=== PATIENT | female | born 1955 | race Caucasian/White ===

== ENCOUNTER 2016-04-27 17:48 | Inpatient (IN) | payer MEDICARE ==
[2016-04-27] MEDS ORDERED: fentaNYL* 50 MCG/ML 2 ML VIAL (100 MCG VIAL) IV SLOW PU ONE ×4 (17:55→20:33)
[2016-04-27] MEDS ORDERED: fentaNYL* 50 MCG/ML 2 ML VIAL (100 MCG VIAL) ONE ×2 (17:57→18:41)
[2016-04-27] MEDS ORDERED: Ondansetron INJ* 2 MG/ML VIAL IV ONE (17:58)
[2016-04-27] MEDS ORDERED: Ondansetron INJ* 2 MG/ML VIAL ONE (17:58)
[2016-04-27] MEDS ORDERED: NS 0.9% 1000 ML* 1,000 ML IV ONE (18:34)
[2016-04-27] MEDS ORDERED: Midazolam* 1 MG/ML 10 ML VIAL (10 MG) ONE (18:42)
[2016-04-27] MEDS ORDERED: Flumazenil* 0.1 MG/ML 5 ML MDV ONE (18:43)
[2016-04-27] MEDS ORDERED: Naloxone* 0.4 MG/ML 1 ML VIAL ONE (18:43)
[2016-04-27] MEDS ORDERED: Midazolam* 1 MG/ML 2 ML VIAL (2 MG) IV SLOW PU ONE ×2 (18:45→18:48)
--- NOTE | 2016-04-27 19:23 | RAD ---
Indication: LEFT ankle and foot pain and deformity post fall. Comparison: June 28, 2009 radiographs. Technique: AP and crosstable lateral views LEFT ankle. Lateral and crosstable AP views LEFT foot. AP and lateral views LEFT lower leg. Report: Talocrural joint fracture dislocation with the talus displaced posteriorly relative to the tibial plafond. Fracture at the distal fibula with gross lateral displacement of the lateral malleolus fragment. Additional component of the distal fibular fracture extends up to 3.5 cm cephalad to the superior margin of the ankle mortise. Horizontal avulsion fracture of the medial malleolus with up to 1.5 cm lateral displacement maintaining gross alignment with the dome of the talus as for the dominant lateral malleolus fragment. No definitive fracture of the posterior malleolus of the tibial plafond and evident. Severe soft tissue swelling about the ankle. No additional fracture at the foot or lower leg. Normal alignment at the proximal tibia fibula articulation and at the intrinsic joints of the hind, mid, and forefoot. IMPRESSION: Talocrural joint fracture dislocation as described. Post reduction LEFT ankle exam: Indication: Post reduction talocrural joint fracture dislocation. Comparison: Prereduction exam of the same date described above. Technique: Additional AP and crosstable lateral views of the LEFT ankle obtained postreduction REPORT AND IMPRESSION: Grossly restored alignment at the talocrural joint. In addition to the described fractures of the medial and lateral malleolus a fracture involving the posterior malleolus of the tibial plafond is identified with up to 0.8 cm cephalad displacement with resulting articular surface incongruity.
[2016-04-27 20:24] LABS: Hematocrit 43 % (35-47); Hemoglobin 14.2 g/dl (12.0-16.0); Mean Corpuscular HGB Conc 33 g/dl (31-36); Mean Corpuscular Hemoglobin 29 pg (27-31); Mean Corpuscular Volume 88 fL (80-97); Mean Platelet Volume 9 um3 (7.4-10.4); Red Blood Count 4.86 10^6/ul (4.0-5.4); Red Cell Distribution Width 14 % (10.5-15); White Blood Count 7.5 10^3/ul (3.5-10.8)
--- NOTE | 2016-04-27 20:29 | HP ---
H&P (Free Text) History and Physical: PCP: Alirio Borrero MD Date/Time of Evaluation: 04/27/20162029 CC: L ankle pain s/p fall HPI: Mrs Truong is a 60YO female HX pre-DM2, HTN not on meds, & CECILIA intolerant of CPAP who presents after mechanical fall at home resulting in immediate L ankle pain prompting her to present for evaluation. She denies prodromal symptoms, specifically no chest pain, palpitations, N/V, loss of bowel/bladder, SOB, or other issues. Additionally, she denies head injury or LOC. XRY reveals a L ankle FX which was reduced and splinted in ED. She lives on the second floor with no elevator. Her son lives below her, but works and is not home consistently to assist her. As such, she has no safe discharge resulting in this admission with plan for OR in AM. PMedHx pre-DM2 HTN, currently not on meds CECILIA, intolerant of CPAP depression/anxiety Allergies No Known Allergies Allergy (Verified 03/29/16 11:37) Ambulatory Orders ARIPiprazole TAB* [Abilify TAB*] 10 mg PO DAILY 03/29/16 Albuterol HFA INHALER* [Ventolin HFA Inhaler*] 1 puff INH Q6H PRN 03/29/16 Amphetamine MIXED SALT TAB* [Adderall TAB*] 20 mg PO TID PRN 03/29/16 Aspirin Low Dose CHEW TAB* [Aspirin Low Dose TAB*] 81 mg PO DAILY 03/29/16 Desloratidine (NF) [Clarinex (NF)] 5 mg PO DAILY PRN 03/29/16 FLUoxetine CAP* [PROzac CAP*] 10 mg PO DAILY 03/29/16 buPROPion TAB* [Wellbutrin TAB*] 100 mg PO DAILY 03/29/16 ALPRAZolam TAB* [Xanax TAB*] 0.25 mg PO Q6H PRN 04/27/16 PSurgHx tonsillectomy appendectomy R oophorectomy for cyst (benign) SocHx: no tobacco, alcohol, or recreational drugs; , her son lives with her but is a student & works making him unavailable reliable for assistance at home; full code status FamHx: positive for DM2, HTN ROS: as above, otherwise reviewed and all were negative Constitutional: NAD, normally developed, obese white female vitals: Vital Signs Temp 36.5 C 04/27/16 17:55 Pulse 80 04/27/16 17:55 Resp 16 04/27/16 20:47 BP 115/63 04/27/16 17:55 Pulse Ox 96 04/27/16 17:55 Intake & Output 04/26/16 04/27/16 04/27/16 23:59 11:59 23:59 Weight 75.75 kg HEENM: atraumatic; sclera/conjunctiva: non-icteric/clear; hearing: clinically intact; oropharynx: clear, mucosa moist Neck: soft tissue: non-tender; thyroid: normal Pulmonary: clear to auscultation bilaterally, good aeration, no accessory muscle use CV: RR/RR, normal S1S2, no carotid bruit, no jugular venous distention, 2+ B DP/ PT, no edema Abdominal: soft, non-distended, non-tender, no rebound/guarding/rigidity, normoactive bowel sounds, no hepatosplenomegaly or masses, no costovertebral angle tenderness Musculoskeletal: general: grossly intact, L ankle splinted; gait: non- ambulatory 2nd L ankle FX Integumental: normal appearance and texture Psychiatric orientation: AA&O to PPS affect: calm mood: cooperative/pleasant eye contact: good content: reliable responses: timely insight: good Testing: Lab Results 04/27/16 04/27/16 Range/Units 20:10 20:10 WBC 7.5 (3.5-10.8) 10^3/ul RBC 4.86 (4.0-5.4) 10^6/ul Hgb 14.2 (12.0-16.0) g/dl Hct 43 (35-47) % MCV 88 (80-97) fL MCH 29 (27-31) pg MCHC 33 (31-36) g/dl RDW 14 (10.5-15) % Plt Count 197 (150-450) 10^3/ul MPV 9 (7.4-10.4) um3 Neut % (Auto) 82.3 (38-83) % Lymph % (Auto) 11.7 L (25-47) % [place] % (Auto) 5.1 (1-9) % Eos % (Auto) 0.4 (0-6) % Baso % (Auto) 0.5 (0-2) % Absolute Neuts (auto) 6.2 (1.5-7.7) 10^3/ul Absolute Lymphs (auto) 0.9 L (1.0-4.8) 10^3/ul Absolute Monos (auto) 0.4 (0-0.8) 10^3/ul Absolute Eos (auto) 0 (0-0.6) 10^3/ul Absolute Basos (auto) 0 (0-0.2) 10^3/ul Absolute Nucleated RBC 0 10^3/ul Nucleated RBC % 0 Sodium 136 (133-145) mmol/L Potassium 4.3 (3.5-5.0) mmol/L Chloride 103 (101-111) mmol/L Carbon Dioxide 27 (22-32) mmol/L Anion Gap 6 (2-11) mmol/L BUN 15 (6-24) mg/dL Creatinine 1.23 H (0.51-0.95) mg/dL Est GFR ( Amer) 56.9 (>60) Est GFR (Non-Af Amer) 44.2 (>60) BUN/Creatinine Ratio 12.2 (8-20) Glucose 133 H (70-100) mg/dL Calcium 9.0 (8.6-10.3) mg/dL Total Bilirubin 0.40 (0.2-1.0) mg/dL AST 17 (13-39) U/L ALT 17 (7-52) U/L Alkaline Phosphatase 82 (34-104) U/L C-Reactive Protein 18.50 H (< 5.00) mg/L Total Protein 7.6 (6.4-8.9) g/dL Albumin 4.2 (3.2-5.2) g/dL Globulin 3.4 (2-4) g/dL Albumin/Globulin Ratio 1.2 (1-3) XRY L ankle, personally reviewed: IMPRESSION: Talocrural joint fracture dislocation as described. REPORT AND IMPRESSION: Grossly restored alignment at the talocrural joint. In addition to the described fractures of the medial and lateral malleolus a fracture involving the posterior malleolus of the tibial plafond is identified with up to 0.8 cm cephalad displacement with resulting articular surface incongruity. Impression: 60F presenting with L ankle FX s/p mechanical fall who lives on the 2nd floor, no elevator, & inadequate help DIAGNOSIS & PLAN Primary L ankle FX, no safe discharge : Dr Harsha MD ED consulted w/ M [facility] who agreed to evaluate patient in AM w/ plan for surgery : NPO after midnight for OR in AM : pedroza to gravity : pain control : initial reduction & splinting done in ED : outreach and education social worker consult to arrange assistance at home : no contraindications to surgery or anesthesia identified : check ECG & CXR : supportive care Secondary pre-DM2 : check A1c : ACHS glucometry x24H to evaluate need for further monitoring HTN : not currently on meds : low sodium diet : IV hydralazine PRN Admission Rational: inpatient for surgical management of L ankle FX in a patient who has no safe discharge plan at this time due to home issues DVTp: heparin SQ x1 tonight, will need to be re-ordered post-op when approved by ortho Code Status: full
[2016-04-27 20:38] LABS: Albumin 4.2 g/dL (3.2-5.2); BUN/Creatinine Ratio 12.2 (8-20); C Reactive Protein 18.5 mg/L (< 5.00); EGFR African American 56.9 (>60); EGFR Non-African American 44.2 (>60); Globulin 3.4 g/dL (2-4); Potassium 4.3 mmol/L (3.5-5.0); Total Bilirubin 0.4 mg/dL (0.2-1.0); Total Protein 7.6 g/dL (6.4-8.9)
--- NOTE | 2016-04-27 20:55 | ED ---
Jose Guadalupe Zamudio Adam, scribed for Jimmy Mcleod MD on 04/27/16 at 1846 . Lower Extremity - HPI Summary HPI Summary: Pt is a 60 year old female presenting with a left ankle injury. She states that she tripped and fell, catching her foot in a rocking chair, and she heard a crack in her left foot as she went down. The left foot and ankle are very painful and appear deformed, with the foot rotated outward. Pt has a PMHx of asthma, depression, and borderline DM. She denies Hx of COPD and cardiac Hx. She is a former smoker and drinks EtOH weekly. FMHx of DM. - History of Current Complaint Chief Complaint: EDExtremityLower Stated Complaint: LT ANKLE PAIN Hx Obtained From: Patient Mechanism Of Injury: Fall From A Standing Position Onset of Pain: Immediate Onset/Duration: Hours Severity Initially: Moderate Severity Currently: Moderate Pain Intensity: 7 Pain Scale Used: 0-10 Numeric Timing: Constant Location: Is Discrete @ - Left ankle/foot Associated Signs And Symptoms: Positive: Other - Deformity Aggravating Factor(s): Movement Alleviating Factor(s): Nothing Able to Bear Weight: No - Allergies/Home Medications Allergies/Adverse Reactions: Allergies Allergy/AdvReac Type Severity Reaction Status Date / Time No Known Allergies Allergy Verified 03/29/16 11:37 PMH/Surg Hx/FS Hx/Imm Hx Endocrine/Hematology History: Reports: Hx Diabetes - Borderline Respiratory History: Reports: Hx Asthma Psychiatric History: Reports: Hx Depression - Cancer History Hx Chemotherapy: No Hx Radiation Therapy: No Infectious Disease History: Yes Infectious Disease History: Denies: Traveled Outside the [place] in Last 30 Days - Family History Known Family History: Positive: Diabetes - Social History Occupation: Disabled Lives: With Family - Domestic partner female Alcohol Use: Weekly Hx Substance Use: No Substance Use Type: Reports: None Hx Tobacco Use: Yes Smoking Status (MU): Former Smoker Review of Systems Negative: Fever Positive: Arthralgia - Left ankle, Myalgia - Left foot All Other Systems Reviewed And Are Negative: Yes Physical Exam Triage Information Reviewed: Yes Vital Signs On Initial Exam: Initial Vitals Temp Pulse Resp BP Pulse Ox 97.7 F 80 16 115/63 96 04/27/16 17:55 04/27/16 17:55 04/27/16 17:55 04/27/16 17:55 04/27/16 17:55 Vital Signs Reviewed: Yes - [place] Coma Scale Coma Scale Total: 15 Procedures - Joint Reduction Joint Reduction Site: ankle (L) Conscious Sedation: Yes - See note Pre-Procedure NV Exam: Yes - Neurovascular Post Joint Reduction Film: joint reduced Diagnostics - Vital Signs Vital Signs Temp Pulse Resp BP Pulse Ox 04/27/16 18:10 16 04/27/16 17:55 97.7 F 80 16 115/63 96 - Laboratory Lab Results: Lab Results 04/27/16 04/27/16 Range/Units 20:10 20:10 WBC 7.5 (3.5-10.8) 10^3/ul RBC 4.86 (4.0-5.4) 10^6/ul Hgb 14.2 (12.0-16.0) g/dl Hct 43 (35-47) % MCV 88 (80-97) fL MCH 29 (27-31) pg MCHC 33 (31-36) g/dl RDW 14 (10.5-15) % Plt Count 197 (150-450) 10^3/ul MPV 9 (7.4-10.4) um3 Neut % (Auto) 82.3 (38-83) % Lymph % (Auto) 11.7 L (25-47) % [place] % (Auto) 5.1 (1-9) % Eos % (Auto) 0.4 (0-6) % Baso % (Auto) 0.5 (0-2) % Absolute Neuts (auto) 6.2 (1.5-7.7) 10^3/ul Absolute Lymphs (auto) 0.9 L (1.0-4.8) 10^3/ul Absolute Monos (auto) 0.4 (0-0.8) 10^3/ul Absolute Eos (auto) 0 (0-0.6) 10^3/ul Absolute Basos (auto) 0 (0-0.2) 10^3/ul Absolute Nucleated RBC 0 10^3/ul Nucleated RBC % 0 Sodium 136 (133-145) mmol/L Potassium 4.3 (3.5-5.0) mmol/L Chloride 103 (101-111) mmol/L Carbon Dioxide 27 (22-32) mmol/L Anion Gap 6 (2-11) mmol/L BUN 15 (6-24) mg/dL Creatinine 1.23 H (0.51-0.95) mg/dL Est GFR ( Amer) 56.9 (>60) Est GFR (Non-Af Amer) 44.2 (>60) BUN/Creatinine Ratio 12.2 (8-20) Glucose 133 H (70-100) mg/dL Calcium 9.0 (8.6-10.3) mg/dL Total Bilirubin 0.40 (0.2-1.0) mg/dL AST 17 (13-39) U/L ALT 17 (7-52) U/L Alkaline Phosphatase 82 (34-104) U/L C-Reactive Protein 18.50 H (< 5.00) mg/L Total Protein 7.6 (6.4-8.9) g/dL Albumin 4.2 (3.2-5.2) g/dL Globulin 3.4 (2-4) g/dL Albumin/Globulin Ratio 1.2 (1-3) Result Diagrams: 04/27/16 20:10 04/27/16 20:10 Lab Statement: Any lab studies that have been ordered have been reviewed, and results considered in the medical decision making process. - Radiology ANKLE Radiology Interpretation Completed By: Radiologist - REPORT AND IMPRESSION: Grossly restored alignment at the talocrural joint. In addition to the described fractures of the medial and lateral malleolus a fracture involving the posterior malleolus of the tibial plafond is identified with up to 0.8 cm cephalad displacement with resulting articular surface incongruity. ANKLE Radiology Interpretation Completed By: Radiologist - REPORT AND IMPRESSION: Grossly restored alignment at the talocrural joint. In addition to the described fractures of the medial and lateral malleolus a fracture involving the posterior malleolus of the tibial plafond is identified with up to 0.8 cm cephalad displacement with resulting articular surface incongruity. LOWER EXTREMITY Radiology Interpretation Completed By: Radiologist - REPORT AND IMPRESSION: Grossly restored alignment at the talocrural joint. In addition to the described fractures of the medial and lateral malleolus a fracture involving the posterior malleolus of the tibial plafond is identified with up to 0.8 cm cephalad displacement with resulting articular surface incongruity. FOOT Radiology Interpretation Completed By: Radiologist - REPORT AND IMPRESSION: Grossly restored alignment at the talocrural joint. In addition to the described fractures of the medial and lateral malleolus a fracture involving the posterior malleolus of the tibial plafond is identified with up to 0.8 cm cephalad displacement with resulting articular surface incongruity. Lower Extremity Course/Dx - Course Course Of Treatment: Pt is a 60 year old female presenting with a left ankle injury. She states that she tripped and fell, catching her foot in a rocking chair, and she heard a crack in her left foot as she went down. The left foot and ankle are very painful and appear deformed, with the foot rotated outward. Pt has a PMHx of asthma, depression, and borderline DM. She denies Hx of COPD and cardiac Hx. She is a former smoker and drinks EtOH weekly. FMHx of DM. Assessment/Plan: BW is WNL. XR of the left ankle, foot, and lower extremity shows a talocrural, distal fibula, medial and lateral malleolus fracture with dislocation. The pt continues to be neurovascularly intact. I explained to the pt about conscious sedation. She verbalized understanding about the risks and benefits of conscious sedation. She signed the consent form. The pt was given fentanyl and Versed, obtaining good sedation. The fracture was reduced and she was placed in a posterior splint. I discussed the findings and results with Dr. Salcido from orthopedics who recommended for the pt to be discharged home or to be admitted if the pt is unable to care for herself. The pt reports that she lives on the 2nd floor, she lives alone, and she thinks that she is unable to care for herself at this point. Therefore I discussed the findings and results with Dr. Mariee who will admit the pt to his services. PROCEDURE NOTE: Procedural Sedation. Indications: Talocrural, distal fibula, medial and posterior malleolus frx and dislocation. [place] Protocol: a timeout was performed and the correct patient and site were verified. Consent: The risks and benefits of monitored anesthesia care, including the risk of aspiration, deep sedation requiring airway management including possible intubation, nausea and vomiting and the risks of not performing the procedure, including severe pain and inability to complete the procedure, were all discussed with the patient. The alternatives of performing the procedure, including local anesthesia and IV analgesia, also discussed. The patient has a ride home available. ASA Class: II-mild systemic disease. Pre-anesthesia evaluation, including history, exam, and informed consent is documented in the ED note above. Monitoring: Continuous monitoring of heart rate, respiratory rate, pulse oximetry and ETCO2. Supplemental oxygen prior to and during procedure via nasal cannula. Resuscitation equipment available at the bedside during sedation. The patient received Fentanyl and Versed dosages were recorded on the sedation form. The patient was recovered from the sedation without complication or incident. Patient returned to pre-sedation level of awareness. The monitoring was discontinued at this time. Post-anesthesia evaluation: Alert and oriented x 3. Respiratory function, cardiovascular function, temperature, and mental status did return to pre-anesthetic state. Pain is controlled. - Diagnoses Provider Diagnoses: Talocrural fracture, Distal fibula fracture, Malleolus fracture with dislocation Discharge - Discharge Plan Condition: Stable Disposition: ADMITTED TO [facility] Referrals: Glendy Borrero MD [Primary Care Provider] - The documentation as recorded by the Jose Guadalupe abarca Adam accurately reflects the service I personally performed and the decisions made by Harsha grewal Walter, MD.
[2016-04-27] MEDS ORDERED: hydrALAZINE IV* 20 MG/ML VIAL IV PRN (21:01)
[2016-04-27] MEDS ORDERED: CMCS: Melatonin (NF) 3 MG TAB PO PRN (21:02)
[2016-04-27] MEDS ORDERED: Ondansetron INJ* 2 MG/ML VIAL IV PRN (21:02)
[2016-04-27] MEDS ORDERED: NS 0.9% 1000 ML* 1,000 ML IV SCH (21:15)
[2016-04-27] MEDS ORDERED: ALPRAZolam TAB* 0.25 MG PO PRN (21:18)
[2016-04-27] MEDS ORDERED: Albuterol HFA INHALER* 8 gm MDI INH PRN (21:18)
[2016-04-27] MEDS ORDERED: Amphetamine MIXED SALT TAB* 10 MG TAB PO PRN (21:18)
[2016-04-27] MEDS: fentaNYL* 50 MCG/ML 2 ML VIAL (100 MCG VIAL) IV SLOW PU PRN (21:40)
--- NOTE | 2016-04-27 22:11 | RAD ---
Indication: Possible ankle fracture. Preoperative assessment. Comparison: March 02, 2011 CT. Technique: Upright AP 2145 hours Report: Low lung volumes with minimal bilateral subsegmental atelectasis. Clear pleural spaces. Negative for pneumothorax. The heart, pulmonary vasculature, and mediastinal contours are unremarkable. IMPRESSION: Low lung volumes with minimal subsegmental atelectasis.
[2016-04-27] MEDS ORDERED: Heparin VIAL(*) 5000 UNITS/ML VIAL (FIVE THOUSAND) SUBCUT ONE (23:00)
[2016-04-27] MEDS: Docusate CAP* 100 MG PO SCH (23:47)
[2016-04-28] MEDS: fentaNYL* 50 MCG/ML 2 ML VIAL (100 MCG VIAL) IV SLOW PU PRN ×8 (00:09→14:20)
[2016-04-28] MEDS: Omeprazole CAP* 20 MG PO SCH (05:49)
[2016-04-28 07:35] LABS: BUN/Creatinine Ratio 16.5 (8-20); Calcium 8.1 mg/dL (8.6-10.3); EGFR African American 80.6 (>60); EGFR Non-African American 62.6 (>60); Potassium 3.6 mmol/L (3.5-5.0)
[2016-04-28] MEDS: Docusate CAP* 100 MG PO SCH ×2 (08:46→22:03)
[2016-04-28] MEDS: FLUoxetine CAP* 10 MG PO SCH (08:54)
[2016-04-28] MEDS: ARIPiprazole TAB* 5 MG PO SCH (08:54)
[2016-04-28] MEDS: buPROPion TAB* 100 MG PO SCH (08:54)
--- NOTE | 2016-04-28 12:05 | CONS ---
CONSULTATION REPORT: DATE OF CONSULT: 04/28/16. TIME: 7:30 a.m. HISTORY OF PRESENT ILLNESS: Ms. Truong is an active 60-year-old woman who fell on some furniture at her home yesterday. She had a fracture dislocation of her left ankle, which was a closed injury. She presented to the emergency room unable to bear weight with an obviously deformed ankle. She was reduced under some IV sedation in the emergency room by the physician. Postoperative splinting x-ray showed satisfactory reduction of the talocrural joint. She is prediabetic and a hypertensive. Her medications are listed in the chart , but include Abilify, Ventolin, Adderall, Prozac, Wellbutrin, and Xanax. She did not have loss of consciousness during her fall. It seems like a mechanical fall rather than some type of central nervous issue. Her previous surgical history is positive for tonsillectomy and appendectomy. She is not a smoker. She lives by herself at home. Her son is nearby and she does have friends in the area, but she lives upstairs in a duplex with many stairs. PHYSICAL EXAMINATION: On examination, Ms. Truong is a slightly heavyset, healthy- appearing woman with an appropriate mood and affect. She does not appear to be any acute distress, lying in the bed. She has her left extremity splinted with a plaster splint, well wrapped with an [place] wrap. Her toes are warm, sensate and she is able to move her toes up and down nicely. The initial radiographs show a displaced trimalleolar ankle fracture and post- reduction views show satisfactory reduction of the joint itself. ASSESSMENT AND PLAN: The patient with unstable fracture dislocation of the left ankle, Will require internal fixation. Postoperatively, she will have difficulty going back home because of the stairs and living situation with lack of support. She may be a candidate for rehab placement. [id number]/[facility] #: [id number] GABBI
[2016-04-28] MEDS ORDERED: Dextrose 50% Syringe 50 ML* 25 GM/50 ML SYRINGE IV PUSH PRN (12:13)
--- NOTE | 2016-04-28 12:13 | PN ---
Subjective Date of Service: 04/28/16 Interval History: Patient seen this morning. Has LE pain but otherwise no complaints. Understands plans for OR. Family History: Unchanged from Admission Social History: Unchanged from Admission Past Medical History: Unchanged from Admission Objective Active Medications: Acetaminophen (Tylenol Tab*) 650 mg PO Q6H PRN Albuterol (Ventolin Hfa Inhaler*) 1 puff INH Q6H PRN Alprazolam (Xanax Tab*) 0.25 mg PO Q6H PRN Amphetamine/Dextroamphetamine (Adderall Tab*) 20 mg PO TID PRN Aripiprazole (Abilify Tab*) 10 mg PO DAILY [facility] Bupropion HCl (Wellbutrin Tab*) 100 mg PO DAILY [facility] Docusate Sodium (Colace Cap*) 200 mg PO BID [facility] Fentanyl Citrate (Fentanyl*) 50 mcg IV SLOW PU Q2H PRN Fluoxetine HCl (Prozac Cap*) 10 mg PO DAILY [facility] Hydralazine HCl (Apresoline Iv*) 10 mg IV Q4H PRN Sodium Chloride (Ns 0.9% 1000 Ml*) 1,000 mls @ 125 mls/hr IV PER RATE [facility] Melatonin (Melatonin (Nf)) 3 mg PO BEDTIME PRN; Protocol Omeprazole (Prilosec Cap*) 20 mg PO DAILY@0600 [facility] Ondansetron HCl (Zofran Inj*) 4 mg IV Q6H PRN Vital Signs 04/27/16 04/27/16 04/27/16 20:30 20:45 20:47 Temperature Pulse Rate 74 75 Respiratory 14 13 16 Rate Blood Pressure 111/65 115/70 (mmHg) O2 Sat by Pulse 99 98 Oximetry 04/28/16 04/28/16 04/28/16 07:32 07:44 08:00 Temperature 97.9 F Pulse Rate 71 Respiratory 18 16 18 Rate Blood Pressure 108/55 (mmHg) O2 Sat by Pulse 95 Oximetry Oxygen Devices in Use Now: None Appearance: Middle-aged, F, laying in bed in NAD Eyes: No Scleral Icterus Ears/Nose/Mouth/Throat: - - Dry MM Respiratory: Symmetrical Chest Expansion and Respiratory Effort, Clear to Auscultation Cardiovascular: NL Sounds; No Murmurs; No JVD, RRR Abdominal: NL Sounds; No Tenderness; No Distention Lymphatic: No Cervical Adenopathy Extremities: - - LLE in JILL/splint Skin: No Rash or Ulcers Neurological: Alert and Oriented x 3 Result Diagrams: 04/27/16 20:10 04/28/16 06:16 Additional Lab and Data: Assess/Plan/Problems-Billing Assessment: L ankle fracture in a 60 yo F with hx of HTN, CECILIA, pre-DM, depression - Patient Problems (1) Ankle fracture, left Current Visit: Yes Comment: Appreciate Ortho assistance, to OR today for internal fixation. Continue analgesia. May need rehab post-op. (2) HTN (hypertension) Current Visit: Yes Comment: BPs stable, not on home medications (3) Diabetes Current Visit: Yes Comment: Not on home medications. Fasting BGs have been elevated. Will start HISS. HbA1c pending. (4) Depression Current Visit: Yes Comment: anxiety. Continue home regimen. (5) DVT prophylaxis Current Visit: Yes Comment: Lovenox (to start tonight)
[2016-04-28] MEDS ORDERED: Famotidine IV* 10 MG/ML 2 ML (20 mg) IV ONE (13:31)
[2016-04-28] MEDS ORDERED: Buffered Lidocaine 1% SYRIN* 3 ML/SYR SYRINGE INTRADERM ONE (13:31)
[2016-04-28] MEDS ORDERED: Famotidine IV* 10 MG/ML 2 ML (20 mg) ONE (13:32)
[2016-04-28] MEDS ORDERED: fentaNYL* 50 MCG/ML 2 ML VIAL (100 MCG VIAL) ONE ×3 (13:53→16:12)
[2016-04-28] MEDS ORDERED: Midazolam* 1 MG/ML 5 ML VIAL (5 MG) ONE (14:26)
[2016-04-28] MEDS ORDERED: Dexamethasone IV* 4 MG/ML 1 ML (4 MG) ONE (14:26)
[2016-04-28] MEDS ORDERED: KETAMINE HCL* 50 MG/ML 10 ML VIAL ONE (14:26)
[2016-04-28] MEDS ORDERED: Lidocaine 2% PF* 5 ML VIAL ONE (14:26)
[2016-04-28] MEDS ORDERED: Propofol* 10 MG/ML 20 ML BTL IV PUSH ONE (14:26)
[2016-04-28] MEDS ORDERED: Ketorolac INJ* 30 MG/ML 1 ML VIAL ONE (14:26)
[2016-04-28] MEDS ORDERED: Bupivacaine 0.5% W/EPI SDV* 30 ML VIAL ONE (14:48)
[2016-04-28] MEDS ORDERED: ceFAZolin 2 GM PREMIX(*) 2 GM/50 ML BAG IVPB ONE (15:31)
[2016-04-28] MEDS ORDERED: EPHEDrine (Pressors)* 50 MG/ML VIAL ONE (16:01)
[2016-04-28] MEDS ORDERED: Cisatracurium* 2 MG/ML MDV 10 ML ONE (16:35)
[2016-04-28] MEDS ORDERED: Labetalol IV* 5 MG/ML 20 ML VIAL ONE (18:07)
[2016-04-28] MEDS ORDERED: HYDROmorphone* 1 MG/ML 1 ML SYR ONE (18:37)
[2016-04-28] MEDS ORDERED: Enoxaparin(*) 40 MG/0.4 ML SYR SUBCUT SCH (19:00)
[2016-04-28] MEDS ORDERED: fentaNYL* 50 MCG/ML 2 ML VIAL (100 MCG VIAL) IV PRN (19:31)
[2016-04-28] MEDS ORDERED: HYDROmorphone* 1 MG/ML 1 ML SYR IV PRN (19:31)
[2016-04-28] MEDS ORDERED: Ondansetron INJ* 2 MG/ML VIAL IV PRN (19:31)
--- NOTE | 2016-04-28 21:29 | RAD ---
INDICATION: ORIF LEFT ankle. Trimalleolar fracture presenting with fracture dislocation. COMPARISON: April 27, 2016 radiographs. TECHNIQUE: 1 minute 3.6 seconds fluoroscopy. FINDINGS: Spot images document placement of a lateral cortical plate and multiple screws bridging the fibular fracture, a syndesmotic screw, and fixation wires at the medial malleolus as well as an additional medial to lateral directed screw at the distal metaphysis of the tibia. Resulting anatomic alignment at the ankle mortise. IMPRESSION: Procedural fluoroscopy. CPT II Codes: 6045F
[2016-04-28] MEDS: Insulin LISPRO* 1 UNITS UNIT SUBCUT SCH (23:45)
[2016-04-28] MEDS: oxyCODONE/Acetamin 5/325 MG* TAB PO PRN (23:51)
[2016-04-28] MEDS: ceFAZolin 1 GM in Dextrose (*) 1 GM/50 ML BAG IVPB SCH (23:59)
[2016-04-29] MEDS: fentaNYL* 50 MCG/ML 2 ML VIAL (100 MCG VIAL) IV SLOW PU PRN (04:24)
[2016-04-29] MEDS: oxyCODONE/Acetamin 5/325 MG* TAB PO PRN ×4 (06:36→20:09)
[2016-04-29] MEDS: Omeprazole CAP* 20 MG PO SCH (06:37)
[2016-04-29 07:15] LABS: Hematocrit 32 % (35-47); Hemoglobin 10.9 g/dl (12.0-16.0); Mean Corpuscular HGB Conc 34 g/dl (31-36); Mean Corpuscular Hemoglobin 30 pg (27-31); Mean Corpuscular Volume 88 fL (80-97); Mean Platelet Volume 10 um3 (7.4-10.4); Red Blood Count 3.63 10^6/ul (4.0-5.4); Red Cell Distribution Width 13 % (10.5-15); White Blood Count 7.5 10^3/ul (3.5-10.8)
[2016-04-29 07:33] LABS: BUN/Creatinine Ratio 12.5 (8-20); Calcium 8.1 mg/dL (8.6-10.3); EGFR African American 83.7 (>60); EGFR Non-African American 65.1 (>60); Potassium 3.9 mmol/L (3.5-5.0)
[2016-04-29] MEDS: ceFAZolin 1 GM in Dextrose (*) 1 GM/50 ML BAG IVPB SCH ×2 (08:25→15:31)
--- NOTE | 2016-04-29 09:10 | PN ---
Progress Note - Progress Note SOAP: Subjective: patient with no complaints, pain controlled with PO meds Objective: Vital Signs Temp Pulse Resp BP Pulse Ox 97.8 F 76 16 92/53 98 04/29/16 07:21 04/29/16 07:21 04/29/16 07:34 04/29/16 07:21 04/29/16 07:34 Laboratory Last Values WBC 7.5 10^3/ul (3.5-10.8) 04/29/16 06:52 RBC 3.63 10^6/ul (4.0-5.4) L 04/29/16 06:52 Hgb 10.9 g/dl (12.0-16.0) L 04/29/16 06:52 Hct 32 % (35-47) L 04/29/16 06:52 MCV 88 fL (80-97) 04/29/16 06:52 MCH 30 pg (27-31) 04/29/16 06:52 MCHC 34 g/dl (31-36) 04/29/16 06:52 RDW 13 % (10.5-15) 04/29/16 06:52 Plt Count 157 10^3/ul (150-450) 04/29/16 06:52 MPV 10 um3 (7.4-10.4) 04/29/16 06:52 Neut % (Auto) 75.8 % (38-83) 04/29/16 06:52 Lymph % (Auto) 14.8 % (25-47) L 04/29/16 06:52 [place] % (Auto) 9.1 % (1-9) H 04/29/16 06:52 Eos % (Auto) 0 % (0-6) 04/29/16 06:52 Baso % (Auto) 0.3 % (0-2) 04/29/16 06:52 Absolute Neuts (auto) 5.7 10^3/ul (1.5-7.7) 04/29/16 06:52 Absolute Lymphs (auto) 1.1 10^3/ul (1.0-4.8) 04/29/16 06:52 Absolute Monos (auto) 0.7 10^3/ul (0-0.8) 04/29/16 06:52 Absolute Eos (auto) 0 10^3/ul (0-0.6) 04/29/16 06:52 Absolute Basos (auto) 0 10^3/ul (0-0.2) 04/29/16 06:52 Absolute Nucleated RBC 0 10^3/ul 04/29/16 06:52 Nucleated RBC % 0 04/29/16 06:52 Sodium 136 mmol/L (133-145) 04/29/16 06:52 Potassium 3.9 mmol/L (3.5-5.0) 04/29/16 06:52 Chloride 106 mmol/L (101-111) 04/29/16 06:52 Carbon Dioxide 26 mmol/L (22-32) 04/29/16 06:52 Anion Gap 4 mmol/L (2-11) 04/29/16 06:52 BUN 11 mg/dL (6-24) 04/29/16 06:52 Creatinine 0.88 mg/dL (0.51-0.95) 03 06:52 Est GFR ( Amer) 83.7 (>60) 04/29/16 06:52 Est GFR (Non-Af Amer) 65.1 (>60) 04/29/16 06:52 BUN/Creatinine Ratio 12.5 (8-20) 04/29/16 06:52 Glucose 139 mg/dL (70-100) H 04/29/16 06:52 POC Glucose (mg/dL) 200 mg/dL (74-106) H 04/29/16 00:25 Hemoglobin A1c 6.3 % (Less than 6.0) H 04/27/16 20:10 Calcium 8.1 mg/dL (8.6-10.3) L 04/29/16 06:52 Total Bilirubin 0.40 mg/dL (0.2-1.0) 04/27/16 20:10 AST 17 U/L (13-39) 04/27/16 20:10 ALT 17 U/L (7-52) 04/27/16 20:10 Alkaline Phosphatase 82 U/L (34-104) 04/27/16 20:10 C-Reactive Protein 18.50 mg/L (< 5.00) H 04/27/16 20:10 Total Protein 7.6 g/dL (6.4-8.9) 04/27/16 20:10 Albumin 4.2 g/dL (3.2-5.2) 04/27/16 20:10 Globulin 3.4 g/dL (2-4) 04/27/16 20:10 Albumin/Globulin Ratio 1.2 (1-3) 04/27/16 20:10 incision: c/d; splint intact and dry PE: moving toes well with intact sensation over toes Assessment: s/p ORIF left ankle Plan: 1) continue PT- NWB LLE 2) Continue Lovenox/ SCD's for DVT prophylaxis 3) Continue Ancef for 24 hours post-op
[2016-04-29] MEDS: buPROPion TAB* 100 MG PO SCH (09:16)
[2016-04-29] MEDS: FLUoxetine CAP* 10 MG PO SCH (09:16)
[2016-04-29] MEDS: Docusate CAP* 100 MG PO SCH ×2 (09:16→20:08)
[2016-04-29] MEDS: ARIPiprazole TAB* 5 MG PO SCH (09:16)
[2016-04-29] MEDS: Insulin LISPRO* 1 UNITS UNIT SUBCUT SCH ×3 (09:41→16:47)
--- NOTE | 2016-04-29 16:45 | PN ---
Subjective Date of Service: 04/29/16 Interval History: Inadequate relief from pain meds. Pt relaying she does not want to take insulin Last BM 3 days prior Using IS correctly Family History: Unchanged from Admission Social History: Unchanged from Admission Past Medical History: Unchanged from Admission Objective Active Medications: Acetaminophen (Tylenol Tab*) 650 mg PO Q6H PRN PRN Reason: FEVER/PAIN Albuterol (Ventolin Hfa Inhaler*) 1 puff INH Q6H PRN PRN Reason: SOB/WHEEZING Alprazolam (Xanax Tab*) 0.25 mg PO Q6H PRN PRN Reason: ANXIETY Amphetamine/Dextroamphetamine (Adderall Tab*) 20 mg PO TID PRN PRN Reason: CONCENTRATION Aripiprazole (Abilify Tab*) 10 mg PO DAILY [facility] Last Admin: 04/29/16 09:16 Dose: 10 mg Bupropion HCl (Wellbutrin Tab*) 100 mg PO DAILY [facility] Last Admin: 04/29/16 09:16 Dose: 100 mg Dextrose (D50w Syringe 50 Ml*) 12.5 gm IV PUSH .FOR FS < 60 - SS PRN PRN Reason: FS < 60 Docusate Sodium (Colace Cap*) 200 mg PO BID [facility] Last Admin: 04/29/16 09:16 Dose: 200 mg Enoxaparin Sodium (Lovenox(*)) 40 mg SUBCUT 2200 [facility] Fluoxetine HCl (Prozac Cap*) 10 mg PO DAILY [facility] Last Admin: 04/29/16 09:16 Dose: 10 mg Hydralazine HCl (Apresoline Iv*) 10 mg IV Q4H PRN PRN Reason: Systolic BP >170 MMHG Lactated Ringer's (Lactated Ringers 1000 Ml Bag*) 1,000 mls @ 125 mls/hr IV PER RATE [facility] Stop: 04/30/16 00:59 Melatonin (Melatonin (Nf)) 3 mg PO BEDTIME PRN; Protocol PRN Reason: Sleep Omeprazole (Prilosec Cap*) 20 mg PO DAILY@0600 [facility] Last Admin: 04/29/16 06:37 Dose: 20 mg Ondansetron HCl (Zofran Inj*) 4 mg IV Q6H PRN PRN Reason: NAUSEA Oxycodone HCl (Roxycodone Tab*) 5 mg PO Q4H PRN PRN Reason: PAIN Oxycodone/Acetaminophen (Percocet 5/325 Tab*) 1 tab PO Q4H PRN PRN Reason: MILD TO MODERATE PAIN Oxycodone/Acetaminophen (Percocet 5/325 Tab*) 2 tab PO Q4H PRN PRN Reason: SEVERE PAIN Last Admin: 04/29/16 15:31 Dose: 2 tab Vital Signs 04/28/16 04/28/16 04/28/16 19:15 19:20 19:25 Temperature 97.7 F Pulse Rate 74 89 87 Respiratory 16 16 16 Rate Blood Pressure 180/86 157/79 141/72 (mmHg) O2 Sat by Pulse 97 97 99 Oximetry 04/28/16 04/28/16 04/28/16 19:30 19:45 20:00 Temperature Pulse Rate 83 83 93 Respiratory 16 14 14 Rate Blood Pressure 139/71 141/76 136/69 (mmHg) O2 Sat by Pulse 99 98 94 Oximetry 04/28/16 04/28/16 04/28/16 20:15 20:30 20:45 Temperature 98.4 F Pulse Rate 87 94 84 Respiratory 14 14 16 Rate Blood Pressure 137/63 141/67 134/57 (mmHg) O2 Sat by Pulse 94 95 96 Oximetry 04/28/16 04/28/16 04/28/16 21:00 21:31 22:17 Temperature 98.0 F Pulse Rate 81 78 Respiratory 16 18 18 Rate Blood Pressure 138/70 126/63 (mmHg) O2 Sat by Pulse 97 97 Oximetry 04/28/16 04/28/16 04/28/16 22:30 22:45 23:44 Temperature 97.4 F 97.6 F Pulse Rate 88 98 Respiratory 18 20 20 Rate Blood Pressure 123/59 130/61 (mmHg) O2 Sat by Pulse 97 97 97 Oximetry 04/28/16 04/29/16 04/29/16 23:51 00:00 01:51 Temperature Pulse Rate Respiratory 18 11 14 Rate Blood Pressure (mmHg) O2 Sat by Pulse 94 Oximetry 04/29/16 04/29/16 04/29/16 01:53 03:55 04:00 Temperature 97.7 F 97.8 F Pulse Rate 92 81 Respiratory 14 14 11 Rate Blood Pressure 115/56 103/54 (mmHg) O2 Sat by Pulse 95 96 96 Oximetry 04/29/16 04/29/16 04/29/16 04:24 05:19 05:22 Temperature Pulse Rate Respiratory 16 11 Rate Blood Pressure (mmHg) O2 Sat by Pulse 96 Oximetry 04/29/16 04/29/16 04/29/16 06:36 06:39 07:21 Temperature 97.8 F Pulse Rate 76 Respiratory 14 16 16 Rate Blood Pressure 92/53 (mmHg) O2 Sat by Pulse 96 98 Oximetry 04/29/16 04/29/16 04/29/16 07:34 08:10 08:36 Temperature Pulse Rate Respiratory 16 16 Rate Blood Pressure 100/50 (mmHg) O2 Sat by Pulse 98 Oximetry 04/29/16 04/29/16 04/29/16 11:17 11:22 13:22 Temperature 97.9 F Pulse Rate 70 Respiratory 17 16 16 Rate Blood Pressure 103/49 (mmHg) O2 Sat by Pulse 94 Oximetry 04/29/16 04/29/16 04/29/16 14:57 15:31 16:00 Temperature 98.8 F Pulse Rate 76 Respiratory 14 16 Rate Blood Pressure 100/46 (mmHg) O2 Sat by Pulse 97 97 Oximetry Oxygen Devices in Use Now: None Appearance: NAD Eyes: No Scleral Icterus, PERRLA Ears/Nose/Mouth/Throat: NL Teeth, Lips, Gums, Clear Oropharnyx, Mucous Membranes Moist Neck: NL Appearance and Movements; NL JVP, Trachea Midline Respiratory: Symmetrical Chest Expansion and Respiratory Effort, Clear to Auscultation Cardiovascular: NL Sounds; No Murmurs; No JVD, RRR Abdominal: NL Sounds; No Tenderness; No Distention Lymphatic: No Cervical Adenopathy Extremities: No Edema, - - LLE splinted, toes nv intact Skin: No Rash or Ulcers Neurological: Alert and Oriented x 3 Result Diagrams: 04/29/16 06:52 04/29/16 06:52 Additional Lab and Data: Assess/Plan/Problems-Billing Assessment: 60 yo F with hx of HTN, CECILIA, pre-DM, depression p/w L ankle fracture s/p ORIF - Patient Problems (1) Ankle fracture, left Comment: Appreciate Ortho assistance, ORIF 04/28/16 Continue analgesia - c/w APAP/oxycodone. Added oxycodone 5mg for breakthrough without additional APAP May need rehab post-op. (2) Constipation Comment: Add miralax to colace (3) Depression Comment: wellbutrin, abilify, xanax (4) Diabetes Comment: Start metformin 500mg BID with plan to d/c on this dose stop ISS c/w FSG x 1 additional day to measure effect (5) HTN (hypertension) Comment: BPs stable, not on home medications (6) DVT prophylaxis Comment: Lovenox
[2016-04-29] MEDS: oxyCODONE TAB* 5 MG TAB PO PRN (17:57)
[2016-04-29] MEDS: metFORMIN* 500 MG TAB PO SCH (17:57)
[2016-04-29] MEDS: Enoxaparin(*) 40 MG/0.4 ML SYR SUBCUT SCH (21:59)
[2016-04-30] MEDS: oxyCODONE/Acetamin 5/325 MG* TAB PO PRN ×4 (00:32→10:31)
[2016-04-30] MEDS: Omeprazole CAP* 20 MG PO SCH (06:32)
[2016-04-30] MEDS: ARIPiprazole TAB* 5 MG PO SCH (08:18)
[2016-04-30] MEDS: buPROPion TAB* 100 MG PO SCH (08:18)
--- NOTE | 2016-04-30 08:18 | PN ---
Progress Note - Progress Note SOAP: Subjective: patient resting comfortably with no complaints Objective: Vital Signs Temp Pulse Resp BP Pulse Ox 97.9 F 75 16 97/53 97 04/30/16 07:35 04/30/16 07:35 04/30/16 07:35 04/30/16 07:35 04/30/16 07:35 Laboratory Last Values WBC 7.5 10^3/ul (3.5-10.8) 04/29/16 06:52 RBC 3.63 10^6/ul (4.0-5.4) L 04/29/16 06:52 Hgb 10.9 g/dl (12.0-16.0) L 04/29/16 06:52 Hct 32 % (35-47) L 04/29/16 06:52 MCV 88 fL (80-97) 04/29/16 06:52 MCH 30 pg (27-31) 04/29/16 06:52 MCHC 34 g/dl (31-36) 04/29/16 06:52 RDW 13 % (10.5-15) 04/29/16 06:52 Plt Count 157 10^3/ul (150-450) 04/29/16 06:52 MPV 10 um3 (7.4-10.4) 04/29/16 06:52 Neut % (Auto) 75.8 % (38-83) 04/29/16 06:52 Lymph % (Auto) 14.8 % (25-47) L 04/29/16 06:52 [place] % (Auto) 9.1 % (1-9) H 04/29/16 06:52 Eos % (Auto) 0 % (0-6) 04/29/16 06:52 Baso % (Auto) 0.3 % (0-2) 04/29/16 06:52 Absolute Neuts (auto) 5.7 10^3/ul (1.5-7.7) 04/29/16 06:52 Absolute Lymphs (auto) 1.1 10^3/ul (1.0-4.8) 04/29/16 06:52 Absolute Monos (auto) 0.7 10^3/ul (0-0.8) 04/29/16 06:52 Absolute Eos (auto) 0 10^3/ul (0-0.6) 04/29/16 06:52 Absolute Basos (auto) 0 10^3/ul (0-0.2) 04/29/16 06:52 Absolute Nucleated RBC 0 10^3/ul 04/29/16 06:52 Nucleated RBC % 0 04/29/16 06:52 Sodium 136 mmol/L (133-145) 04/29/16 06:52 Potassium 3.9 mmol/L (3.5-5.0) 04/29/16 06:52 Chloride 106 mmol/L (101-111) 04/29/16 06:52 Carbon Dioxide 26 mmol/L (22-32) 04/29/16 06:52 Anion Gap 4 mmol/L (2-11) 04/29/16 06:52 BUN 11 mg/dL (6-24) 04/29/16 06:52 Creatinine 0.88 mg/dL (0.51-0.95) 03 06:52 Est GFR ( Amer) 83.7 (>60) 04/29/16 06:52 Est GFR (Non-Af Amer) 65.1 (>60) 04/29/16 06:52 BUN/Creatinine Ratio 12.5 (8-20) 04/29/16 06:52 Glucose 139 mg/dL (70-100) H 04/29/16 06:52 POC Glucose (mg/dL) 90 mg/dL (74-106) 04/29/16 21:13 Hemoglobin A1c 6.3 % (Less than 6.0) H 04/27/16 20:10 Calcium 8.1 mg/dL (8.6-10.3) L 04/29/16 06:52 Total Bilirubin 0.40 mg/dL (0.2-1.0) 04/27/16 20:10 AST 17 U/L (13-39) 04/27/16 20:10 ALT 17 U/L (7-52) 04/27/16 20:10 Alkaline Phosphatase 82 U/L (34-104) 04/27/16 20:10 C-Reactive Protein 18.50 mg/L (< 5.00) H 04/27/16 20:10 Total Protein 7.6 g/dL (6.4-8.9) 04/27/16 20:10 Albumin 4.2 g/dL (3.2-5.2) 04/27/16 20:10 Globulin 3.4 g/dL (2-4) 04/27/16 20:10 Albumin/Globulin Ratio 1.2 (1-3) 04/27/16 20:10 splint intact, able to move toes with intact sensation over toes Assessment: s/p ORIF left ankle Plan: 1) continue Lovenox/SCD's for DVT prophylaxis 2) Continue current pain regimen 3) Hospitalist co-managing 4) PMRU consult for rehab placement 5) Continue PT/OT- NWB LLE
[2016-04-30] MEDS: metFORMIN* 500 MG TAB PO SCH ×2 (08:19→16:09)
[2016-04-30] MEDS: Docusate CAP* 100 MG PO SCH ×2 (08:19→20:48)
[2016-04-30] MEDS: FLUoxetine CAP* 10 MG PO SCH (08:19)
[2016-04-30] MEDS: Polyethylene Glycol 3350* 17 GM PACKET PO PRN (09:01)
[2016-04-30] MEDS ORDERED: Acetaminophen TAB* 325 MG PO PRN (16:07)
[2016-04-30] MEDS: Acetaminophen TAB* 325 MG PO PRN ×2 (16:09→22:05)
[2016-04-30] MEDS: oxyCODONE TAB* 5 MG TAB PO PRN ×2 (16:40→20:47)
--- NOTE | 2016-04-30 17:12 | PN ---
Subjective Date of Service: 04/30/16 Interval History: +BM, feels better pain improved Using IS No complaints Family History: Unchanged from Admission Social History: Unchanged from Admission Past Medical History: Unchanged from Admission Objective Active Medications: Acetaminophen (Tylenol Tab*) 650 mg PO Q6H PRN PRN Reason: FEVER/PAIN Last Admin: 04/30/16 16:09 Dose: 650 mg Albuterol (Ventolin Hfa Inhaler*) 1 puff INH Q6H PRN PRN Reason: SOB/WHEEZING Alprazolam (Xanax Tab*) 0.25 mg PO Q6H PRN PRN Reason: ANXIETY Amphetamine/Dextroamphetamine (Adderall Tab*) 20 mg PO TID PRN PRN Reason: CONCENTRATION Aripiprazole (Abilify Tab*) 10 mg PO DAILY [facility] Last Admin: 04/30/16 08:18 Dose: 10 mg Bupropion HCl (Wellbutrin Tab*) 100 mg PO DAILY [facility] Last Admin: 04/30/16 08:18 Dose: 100 mg Dextrose (D50w Syringe 50 Ml*) 12.5 gm IV PUSH .FOR FS < 60 - SS PRN PRN Reason: FS < 60 Docusate Sodium (Colace Cap*) 200 mg PO BID [facility] Last Admin: 04/30/16 08:19 Dose: 200 mg Enoxaparin Sodium (Lovenox(*)) 40 mg SUBCUT 2200 [facility] Last Admin: 04/29/16 21:59 Dose: 40 mg Fluoxetine HCl (Prozac Cap*) 10 mg PO DAILY [facility] Last Admin: 04/30/16 08:19 Dose: 10 mg Hydralazine HCl (Apresoline Iv*) 10 mg IV Q4H PRN PRN Reason: Systolic BP >170 MMHG Melatonin (Melatonin (Nf)) 3 mg PO BEDTIME PRN; Protocol PRN Reason: Sleep Metformin HCl (Glucophage*) 500 mg PO 0800,1700 [facility] Last Admin: 04/30/16 16:09 Dose: 500 mg Omeprazole (Prilosec Cap*) 20 mg PO DAILY@0600 [facility] Last Admin: 04/30/16 06:32 Dose: 20 mg Ondansetron HCl (Zofran Inj*) 4 mg IV Q6H PRN PRN Reason: NAUSEA Oxycodone HCl (Roxycodone Tab*) 5 mg PO Q4H PRN PRN Reason: PAIN Last Admin: 04/30/16 16:40 Dose: 5 mg Polyethylene Glycol/Electrolytes (Miralax*) 17 gm PO DAILY PRN PRN Reason: CONSTIPATION Last Admin: 04/30/16 09:01 Dose: 17 gm Vital Signs 04/29/16 04/29/16 04/29/16 17:31 17:57 19:18 Temperature 99.0 F Pulse Rate 81 Respiratory 16 16 15 Rate Blood Pressure 101/55 (mmHg) O2 Sat by Pulse 96 Oximetry 04/29/16 04/29/16 04/29/16 19:57 20:09 22:09 Temperature Pulse Rate Respiratory 16 18 16 Rate Blood Pressure (mmHg) O2 Sat by Pulse Oximetry 04/29/16 04/30/16 04/30/16 23:39 00:32 02:32 Temperature 99.3 F Pulse Rate 88 Respiratory 16 16 18 Rate Blood Pressure 114/58 (mmHg) O2 Sat by Pulse 100 Oximetry 04/30/16 04/30/16 04/30/16 03:22 06:36 07:11 Temperature 99.5 F Pulse Rate 93 Respiratory 18 16 16 Rate Blood Pressure 108/54 (mmHg) O2 Sat by Pulse 97 97 Oximetry 04/30/16 04/30/16 04/30/16 07:35 08:36 10:31 Temperature 97.9 F Pulse Rate 75 Respiratory 16 16 16 Rate Blood Pressure 97/53 (mmHg) O2 Sat by Pulse 97 Oximetry 04/30/16 04/30/16 04/30/16 11:12 12:31 15:20 Temperature 98.1 F 98.1 F Pulse Rate 78 78 Respiratory 16 16 14 Rate Blood Pressure 110/51 117/50 (mmHg) O2 Sat by Pulse 97 97 Oximetry 04/30/16 04/30/16 16:02 16:40 Temperature Pulse Rate Respiratory 16 Rate Blood Pressure (mmHg) O2 Sat by Pulse 97 Oximetry Oxygen Devices in Use Now: None Appearance: NAD Eyes: No Scleral Icterus, PERRLA Ears/Nose/Mouth/Throat: NL Teeth, Lips, Gums, Clear Oropharnyx, Mucous Membranes Moist Neck: NL Appearance and Movements; NL JVP, Trachea Midline Respiratory: Symmetrical Chest Expansion and Respiratory Effort, Clear to Auscultation Cardiovascular: NL Sounds; No Murmurs; No JVD, RRR Abdominal: NL Sounds; No Tenderness; No Distention, No Hepatosplenomegaly Lymphatic: No Cervical Adenopathy Extremities: - - left toes NV intact Neurological: Alert and Oriented x 3 Result Diagrams: 04/29/16 06:52 04/29/16 06:52 Additional Lab and Data: Assess/Plan/Problems-Billing Assessment: 60 yo F with hx of HTN, CECILIA, pre-DM2, depression p/w L ankle fracture s/p ORIF 04/28/16 - Patient Problems (1) Ankle fracture, left Comment: Appreciate Ortho assistance ORIF 04/28/16 Continue analgesia - oxycodone 5mg and tylenol 650mg PMRU referral (2) Constipation Comment: miralax and colace (3) Depression Comment: wellbutrin, abilify, xanax (4) Diabetes Comment: Start metformin 500mg BID with plan to d/c on this dose stop ISS (5) HTN (hypertension) Comment: BPs stable, not on home medications (6) DVT prophylaxis Comment: Lovenox
[2016-04-30] MEDS: Enoxaparin(*) 40 MG/0.4 ML SYR SUBCUT SCH (22:05)
--- NOTE | 2016-05-01 04:48 | OP ---
DATE OF OPERATION: 04/28/16 - ROOM #332 DATE OF : 51 SURGEON: Robbie Napier MD DINING ROOM HELPER: FRANCISCO Smith ANESTHESIOLOGIST: Dr. Mesa. ANESTHESIA: General anesthesia, LMA, then endotracheal tube. PRE-OP DIAGNOSIS: Left ankle trimalleolar fracture dislocation. POST-OP DIAGNOSIS: Left ankle trimalleolar fracture dislocation. OPERATIVE PROCEDURE: 1. Open reduction and internal fixation, left ankle trimalleolar fracture without posterior or fixation. 2. Left ankle open reduction and internal fixation syndesmosis. INDICATIONS: The patient is a 60-year-old woman, retired, who lives alone, who presented the day prior to the procedure to the emergency department at [facility]. She fell at home from a standing height on to some furniture. She had obvious deformity of the ankle and could not bear weight. In the emergency department, x- rays demonstrated a gross dislocation of the ankle joint as well as a comminuted fracture of the lateral malleolus, displaced, a displaced tip of medial malleolus fracture, and a kimani or small, less than 20% fracture of the posterior malleolus of the tibia. Emergency department staff successfully relocated the ankle and the patient was placed in a splint with Hamlet bandage. Another Orthopedic Surgery attending did a consult on the patient. The patient was admitted from the emergency department because she required this for pain control as well as for functional safety, given her age, living alone, and inability to use assist devices, and remain nonweightbearing left lower extremity. The patient was therefore admitted to the floor. Orthopedic Surgery consultation was obtained by another physician and I met the patient preoperatively for the procedure that she opted to have performed on our recommendation. ANTIBIOSIS: 2 g Ancef IV. IV FLUIDS: See Anesthesia note. TOURNIQUET TIME: 140 minutes at 300 mmHg. COMPLICATIONS: None. ESTIMATED BLOOD LOSS: Minimal. SPECIMEN: None. IMPLANTS: Synthes one-third tubular plate with nonlocking screws and one locking screw, cortical and cancellous in the lateral malleolus. One syndesmotic screw, 3.5 mm, fully threaded through the Synthes plates. Medially , there were two 1.6-mm K-wires used in a tension band construct with a 3.5-mm fully threaded 30-mm screw and washer, and a Fiber-Wire #5 suture completing the tension band construct. DESCRIPTION OF PROCEDURE: Preoperative written consent. Operative extremity was marked in the preoperative holding. In the preoperative holding, I took down the patient's posterior splint, short leg. I examined the skin carefully. There was no open skin. There was some soft tissue swelling, but there was wrinkling about the medial and lateral ankle. The ankle appeared located by my exam which coincided with post relocation x-rays that I had seen. The patient was taken back to the operating room and placed supine on the operating room table. The patient was sedated and LMA was placed. Bone foam and a left hemipelvis bump were placed. A proximal left thigh tourniquet was placed, but not yet elevated. C-arm was brought in and confirmed to obtain appropriate images. C-arm was brought out and the left lower extremity was prepped and draped. Surgical time-out was performed. Esmarch was applied. Tourniquet was elevated to 300 mmHg. A standard lateral ankle incision was made through the skin from approximately 12 cm proximal to the tip, distal of the lateral malleolus to just distal to the lateral malleolus. Dissection through subcutaneous tissue with a 15 blade. Deeper dissection with scissors. I encountered a branch of the superficial peroneal nerve in the proximal aspect of my incision. I freed it up and retracted it anteriorly. I quickly dissected down to the fracture site. It was comminuted. There was a short oblique component of the fracture as well as an anteromedial long, very thin fracture fragment and then, a posterior extended fragment of the shaft of the fibula. Bone was noted to be very narrow, of the fibula, both medial to lateral and anterior to posterior. Hematoma was irrigated and sucked out. Fracture site was curetted. A mini rongeur was used to remove fibrous tissue. Bone clamps were used to obtain reduction. I requested that Anesthesia maximally sedate and paralyze the patient, so they switched from an LMA to an endotracheal tube and gave me some more relaxation. I appreciated this. Obtained an excellent reduction. Placed a 2.7-mm screw, using lag technique. This afforded me a good reduction of the fracture fragments with utmost a 1-mm stepoff of this very comminuted osteopenic fracture. I then contoured a one-third tubular plate. Most of the contouring included adding an internal rotation contour to it. I also flexed the tip of the plate distally. The plate was then noted to lie well on top of bone. Given how distal the fracture was, it was evident that I would only get 2 screws distal to the fracture site. The plate was long enough to accommodate the syndesmotic screw as needed as well as three more proximal screws and some empty screw holes to accommodate for the lag screw and the area of most comminution of the fracture. In order to suck the plate down to bone, I used initially 2 nonlocking screws on the second most distal hole and then a proximal hole. The 2.7-mm interfrag screw was noted to be loose which was not especially surprising given the amount of comminution. Therefore, after the plate had been placed, this interfrag screw was removed. Excellent reduction was noted of fracture fragments and the plate had been placed with one screw proximal and distal. C-arm imaging confirmed appropriate placement of plate proximal to distal and good reduction of bone. In order to suck down the distal most aspect of the plate and prevent it from being prominent, I used again a nonlocking screw despite some thinness of bone. I filled in the proximal holes with nonlocking screws to suck plate to bone and then a locking screw once the plates had been nicely contoured to bone for some added rigidity of the construct. X-rays were obtained. This showed good reduction of the fibula, although that thin sliver anteromedial of bone was noted to be displaced perhaps 1 mm or less than 1 mm. I suspected that much of the syndesmosis was attached to part of this fragment. Therefore, I assumed a certain amount of syndesmosis instability. I performed an external rotation stress test at this point which showed no significant medial clear space widening, but I decided to refrain on final judgment on the requirement of the syndesmotic screw until I had placed fixation medially. A bump under the left hemipelvis was removed. I turned my attention to the medial aspect of the ankle. A medial ankle approach incision was made, curving distally. Dissection with scissors made through the subcutaneous tissue. The saphenous vein and some saphenous nerve branches were easily appreciated and retracted anteriorly. The fracture site was identified, keyed open, irrigated, and curetted. This fracture fragment was noted to be very small. I was concerned that any screw fixation might explode it, although I did consider briefly one screw and one K- wire. In order to be conservative, I instead decided to do a tension band construct using K-wires. I reduced the fracture fragment. Although there had been some comminution, I was able to confirm along the anterior shoulder of the medial malleolus a perfect reduction of the bone. I held them in place with a dental pick. I placed two 1.6-mm K-wires perpendicular to the fracture plane. I confirmed good placement of these on AP mortise and lateral views. I then went up to the most proximal aspect of my incision. I drilled for a screw post. I drilled pointing slightly distally. I placed a 30-mm screw with washer. I then obtained some FiberWire #5 and created a tension band and tied that tightly. I then placed the screw and washer all the way down to bone. I bent the tips of the K-wires, cut off the extra wire, and impacted them into bone. X-rays showed excellent reduction of medial malleolus fracture. X-rays did show that the post screw was surprisingly a little bit prominent into the syndesmosis. In the past, I have routinely used a 30-mm post and it sounded never to have been too long. This was several threads long. I decided to leave it in place for now. I then performed external rotation stress test and Cotton test. There was some minimal amount of widening of the tibial fibular clear and overlap spaces with Cotton test. Also, given the segmental anteromedial small fracture fragment, assumed to involve some syndesmosis tissue and the fact that this had been a fracture dislocation, I assumed the worst, instability of the syndesmosis and I decided to place a syndesmotic screw. Therefore, with the ankle fully dorsiflexed, I drilled and then placed through the plate approximately 1.5 to 2 cm proximal for the tibial talar joint, a fully threaded 3.5-mm screw across fibula and tibia. I placed that screw tip at or just prior to the medial cortex that I could actually visualize through my medial incision. I was especially careful not to overtighten this in any way, just the lightest finger tip tightening, especially given her age. Final x-rays were obtained, AP, mortise, and lateral. The post screw was noted to be slightly long. I decided that I could take this out at the time I removed the syndesmotic screw if it is troublesome approximately 10 weeks' postoperative. Irrigation of both wounds. Closure on the medial side of the subcutaneous tissue with buried simple stitches using Vicryl 3-0 suture followed by skin closure with a running stitch using nylon 4-0 suture. Closure of the lateral wound with deep stitches, figure -of-4, and deep subcutaneous and fascial tissue using Vicryl 2-0 suture. Closure of the subcutaneous tissue with buried simple stitches using Vicryl 3-0 suture. Closure of the skin with running stitches using nylon 4-0 suture. Xeroform over both incisions, 4x4's, ABD, sterile Webril, nonsterile Webril, a posterior splint was then followed by sugar-tong medial and lateral splint. Hamlet bandage. The patient was then awakened, extubated, and transferred to the PACU. DISPOSITION: The patient will be admitted postoperatively for pain control, medical management, and physical therapy work. The patient is nonweightbearing or toe-touch weightbearing of left lower extremity. The patient will follow up with me in clinic in 12 to 14 days postoperative. The patient will get Keflex antibiosis x1 week. The patient is already on Lovenox anticoagulation, so certainly will not add anything to that and she will get Percocet for pain control postoperatively. My tentative plan will be to start the patient on some partial weightbearing at 6 weeks in a walking boot, advance her to weightbearing as tolerated in that walking boot by 8 weeks, and remove that syndesmotic screw somewhere between 10 and 14 weeks postoperatively. I might remove that medial post screw as well or change screw lengths. [id number]/[facility] #: [id number]
[2016-05-01] MEDS: oxyCODONE TAB* 5 MG TAB PO PRN ×4 (05:51→22:48)
[2016-05-01] MEDS: Omeprazole CAP* 20 MG PO SCH (05:51)
[2016-05-01] MEDS: Acetaminophen TAB* 325 MG PO PRN ×3 (05:51→17:57)
[2016-05-01 06:54] LABS: Hematocrit 30 % (35-47); Hemoglobin 10.3 g/dl (12.0-16.0); Mean Corpuscular HGB Conc 34 g/dl (31-36); Mean Corpuscular Hemoglobin 30 pg (27-31); Mean Corpuscular Volume 88 fL (80-97); Mean Platelet Volume 9 um3 (7.4-10.4); Red Blood Count 3.44 10^6/ul (4.0-5.4); Red Cell Distribution Width 13 % (10.5-15); White Blood Count 5.3 10^3/ul (3.5-10.8)
[2016-05-01 07:09] LABS: BUN/Creatinine Ratio 11.3 (8-20); Calcium 8.4 mg/dL (8.6-10.3); EGFR African American 93.5 (>60); EGFR Non-African American 72.7 (>60); Potassium 3.5 mmol/L (3.5-5.0)
[2016-05-01] MEDS: ARIPiprazole TAB* 5 MG PO SCH (08:25)
[2016-05-01] MEDS: Docusate CAP* 100 MG PO SCH ×2 (08:25→19:58)
[2016-05-01] MEDS: FLUoxetine CAP* 10 MG PO SCH (08:25)
[2016-05-01] MEDS: metFORMIN* 500 MG TAB PO SCH ×2 (08:26→17:19)
[2016-05-01] MEDS: buPROPion TAB* 100 MG PO SCH (08:26)
--- NOTE | 2016-05-01 08:53 | PN ---
Progress Note - Progress Note SOAP: Subjective: []Patient seen OOB in chair. Slept better in chair than in bed. Ankle painful at times but overall is tolerable. Hoping to go to PMRU rehab, awaiting consult. Objective: [] Vital Signs Temp 97.7 F 05/01/16 07:18 Pulse 68 05/01/16 07:18 Resp 16 05/01/16 08:00 BP 116/56 05/01/16 07:18 Pulse Ox 93 05/01/16 07:18 Intake & Output 04/30/16 05/01/16 05/01/16 18:59 06:59 18:59 Intake Total 1040 700 Output Total 2150 1000 Balance -1110 -300 Intake: Oral 1040 700 Output: Urine 2150 1000 Other: Date of Last Bowel 04/30/16 Movement # Bowel Movements 1 Estimated Stool Amount Large Laboratory Results - last 24 hr 05/01/16 05/01/16 06:35 06:35 WBC 5.3 RBC 3.44 L Hgb 10.3 L Hct 30 L MCV 88 MCH 30 MCHC 34 RDW 13 Plt Count 156 MPV 9 Neut % (Auto) 64.6 Lymph % (Auto) 22.1 L Dewey % (Auto) 11.6 H Eos % (Auto) 1.0 Baso % (Auto) 0.7 Absolute Neuts (auto) 3.4 Absolute Lymphs (auto) 1.2 Absolute Monos (auto) 0.6 Absolute Eos (auto) 0.1 Absolute Basos (auto) 0 Absolute Nucleated RBC 0 Nucleated RBC % 0 Sodium 134 Potassium 3.5 Chloride 100 L Carbon Dioxide 28 Anion Gap 6 BUN 9 Creatinine 0.80 Est GFR ( Amer) 93.5 Est GFR (Non-Af Amer) 72.7 BUN/Creatinine Ratio 11.3 Glucose 97 Calcium 8.4 L Left ankle splint is clean, dry and intact Moving toes well, pink and warm no calf tenderness Assessment: []s/p ORIF left trimalleolar ankle fracture POD#3 Plan: []PT NWB left LE Await PMRU consult
[2016-05-01] MEDS: Polyethylene Glycol 3350* 17 GM PACKET PO PRN (11:52)
--- NOTE | 2016-05-01 17:01 | PN ---
Subjective Date of Service: 05/01/16 Interval History: Pain better controlled no BM today. Family History: Unchanged from Admission - Social History: Unchanged from Admission Past Medical History: Unchanged from Admission Objective Active Medications: Acetaminophen (Tylenol Tab*) 650 mg PO Q6H PRN PRN Reason: FEVER/PAIN Last Admin: 05/01/16 11:46 Dose: 650 mg Albuterol (Ventolin Hfa Inhaler*) 1 puff INH Q6H PRN PRN Reason: SOB/WHEEZING Alprazolam (Xanax Tab*) 0.25 mg PO Q6H PRN PRN Reason: ANXIETY Amphetamine/Dextroamphetamine (Adderall Tab*) 20 mg PO TID PRN PRN Reason: CONCENTRATION Aripiprazole (Abilify Tab*) 10 mg PO DAILY [facility] Last Admin: 05/01/16 08:25 Dose: 10 mg Bupropion HCl (Wellbutrin Tab*) 100 mg PO DAILY [facility] Last Admin: 05/01/16 08:26 Dose: 100 mg Dextrose (D50w Syringe 50 Ml*) 12.5 gm IV PUSH .FOR FS < 60 - SS PRN PRN Reason: FS < 60 Docusate Sodium (Colace Cap*) 200 mg PO BID [facility] Last Admin: 05/01/16 08:25 Dose: 200 mg Enoxaparin Sodium (Lovenox(*)) 40 mg SUBCUT 2200 [facility] Last Admin: 04/30/16 22:05 Dose: 40 mg Fluoxetine HCl (Prozac Cap*) 10 mg PO DAILY [facility] Last Admin: 05/01/16 08:25 Dose: 10 mg Hydralazine HCl (Apresoline Iv*) 10 mg IV Q4H PRN PRN Reason: Systolic BP >170 MMHG Melatonin (Melatonin (Nf)) 3 mg PO BEDTIME PRN; Protocol PRN Reason: Sleep Metformin HCl (Glucophage*) 500 mg PO 0800,1700 [facility] Last Admin: 05/01/16 08:26 Dose: 500 mg Omeprazole (Prilosec Cap*) 20 mg PO DAILY@0600 [facility] Last Admin: 05/01/16 05:51 Dose: 20 mg Ondansetron HCl (Zofran Inj*) 4 mg IV Q6H PRN PRN Reason: NAUSEA Oxycodone HCl (Roxycodone Tab*) 5 mg PO Q4H PRN PRN Reason: PAIN - MODERATE Last Admin: 04/30/16 16:40 Dose: 5 mg Oxycodone HCl (Roxycodone Tab*) 10 mg PO Q4H PRN PRN Reason: PAIN - SEVERE Last Admin: 05/01/16 11:46 Dose: 10 mg Polyethylene Glycol/Electrolytes (Miralax*) 17 gm PO DAILY PRN PRN Reason: CONSTIPATION Last Admin: 05/01/16 11:52 Dose: 17 gm Vital Signs 04/30/16 04/30/16 04/30/16 18:40 19:14 19:15 Temperature Pulse Rate Respiratory 16 17 17 Rate Blood Pressure (mmHg) O2 Sat by Pulse Oximetry 04/30/16 04/30/16 04/30/16 19:23 20:47 22:47 Temperature 98.4 F Pulse Rate 76 Respiratory 17 17 16 Rate Blood Pressure 111/49 (mmHg) O2 Sat by Pulse 96 Oximetry 04/30/16 05/01/16 05/01/16 23:23 03:48 05:51 Temperature 99.1 F 98.5 F Pulse Rate 74 74 Respiratory 16 16 16 Rate Blood Pressure 118/56 115/59 (mmHg) O2 Sat by Pulse 99 95 Oximetry 05/01/16 05/01/16 05/01/16 07:18 07:51 08:00 Temperature 97.7 F Pulse Rate 68 Respiratory 16 16 16 Rate Blood Pressure 116/56 (mmHg) O2 Sat by Pulse 93 Oximetry 05/01/16 05/01/16 05/01/16 11:38 11:46 13:46 Temperature 98.1 F Pulse Rate 80 Respiratory 18 16 16 Rate Blood Pressure 113/44 (mmHg) O2 Sat by Pulse 98 Oximetry 05/01/16 05/01/16 15:01 16:51 Temperature 98.3 F Pulse Rate 86 Respiratory 14 Rate Blood Pressure 127/56 (mmHg) O2 Sat by Pulse 95 95 Oximetry Oxygen Devices in Use Now: None Appearance: NAD Eyes: No Scleral Icterus, PERRLA Ears/Nose/Mouth/Throat: NL Teeth, Lips, Gums, Clear Oropharnyx Neck: NL Appearance and Movements; NL JVP, Trachea Midline Respiratory: Symmetrical Chest Expansion and Respiratory Effort, Clear to Auscultation Cardiovascular: NL Sounds; No Murmurs; No JVD, RRR Abdominal: NL Sounds; No Tenderness; No Distention Lymphatic: No Cervical Adenopathy Skin: - - left ankle in cast, toes Nv intact Neurological: Alert and Oriented x 3 Result Diagrams: 05/01/16 06:35 05/01/16 06:35 Additional Lab and Data: Assess/Plan/Problems-Billing Assessment: 60 yo F with hx of HTN, CECILIA, pre-DM2, depression p/w L ankle fracture s/p ORIF 04/28/16 - Patient Problems (1) Ankle fracture, left Comment: Appreciate Ortho assistance ORIF 04/28/16 Continue analgesia - oxycodone 5mg and tylenol 650mg [place] tomorrow (2) Constipation Comment: miralax and colace added senna (3) Depression Comment: wellbutrin, abilify, xanax (4) Diabetes Comment: Start metformin 500mg BID with plan to d/c on this dose stop ISS (5) HTN (hypertension) Comment: BPs stable, not on home medications (6) DVT prophylaxis Comment: Lovenox
[2016-05-01] MEDS ORDERED: Senna TAB PO SCH (21:00)
[2016-05-01] MEDS: Enoxaparin(*) 40 MG/0.4 ML SYR SUBCUT SCH (22:37)
[2016-05-02] MEDS: oxyCODONE TAB* 5 MG TAB PO PRN ×2 (04:33→09:54)
[2016-05-02] MEDS: Acetaminophen TAB* 325 MG PO PRN (04:34)
[2016-05-02] MEDS: Omeprazole CAP* 20 MG PO SCH (05:43)
[2016-05-02 07:43] VITALS: BP 115/55
--- NOTE | 2016-05-02 08:22 | DS ---
DISCHARGE SUMMARY: DATE OF ADMISSION: 04/27/16 DATE OF DISCHARGE: 05/02/16 PRIMARY CARE PROVIDER: Dr. Glendy Borrero. DISPOSITION ON DISCHARGE: [facility]. PRIMARY DIAGNOSIS: Left ankle trimalleolar fracture, status post open reduction internal fixation without posterior fixation. SECONDARY DIAGNOSES: 1. Hypertension, on no medication. 2. Metabolic syndrome, now on metformin. 3. Depression. 4. Anxiety. 5. Constipation. 6. Obstructive sleep apnea, intolerant of CPAP. MEDICATIONS ON DISCHARGE: Include: 1. Abilify 10 mg daily. 2. Xanax 0.25 mg every 6 hours as needed for anxiety. 3. Clarinex 5 mg daily as needed. 4. Aspirin 81 mg daily. 5. Adderall 20 mg 3 times a day as needed. 6. Albuterol HFA one puff inhaled every 6 hours as needed. 7. Bupropion 100 mg daily. 8. Prozac 10 mg daily. 9. Oxycodone with acetaminophen 5/325 mg one to two tabs every 4 hours as needed for pain, max daily dose 12. 10. Metformin 500 mg twice daily. 11. Senna two tabs at bedtime as needed for constipation. 12. MiraLAX 17 g daily as needed for constipation. 13. Docusate 200 mg twice daily. 14. Acetaminophen 650 mg every 6 hours as needed for pain or fever. DIET ON DISCHARGE: Consistent carbohydrate/diabetic. ACTIVITY: Nonweightbearing, left lower extremity. PERTINENT PROCEDURES: Open reduction internal fixation, left ankle trimalleolar fracture, on 04/29/[address] Napier. PERTINENT LABORATORY DATA: Hemoglobin A1c is 6.3. HISTORY OF PRESENT ILLNESS AND HOSPITAL COURSE: This is a 61-year-old female with past medical history as outlined in the history of present illness on the day of admission, presented to the hospital after a mechanical fall with left ankle pain following trimalleolar fracture. She was brought to the operating room where she underwent an ORIF without posterior fixation with Dr. Napier. She tolerated the procedure well. She worked with physical therapy and will be discharged to [facility] for further subacute rehab needs. During the hospital stay, her blood sugar was noted to be elevated. Her hemoglobin A1c was 6.3. She was started on metformin 500 mg twice daily without adverse effect. Her blood sugar was well controlled. Suspected she will be able to discontinue this medication in the future once her ankle has healed and she is able to resume exercise. Her blood pressure was well controlled during the course of the hospital stay. There were no complications during the patient's hospital stay. At followup, please; 1. Evaluate for continued need of metformin. Follow hemoglobin A1c as I am sure you will. 2. Evaluate for continued pain control. 3. No other specific labs or vitals that need followup. Reasons to return to the hospital including but not limited to recurrent or worsening symptoms, worsening pain, fever, chills, night sweats, loss of consciousness, near loss of consciousness, bleeding from any source, difficulty breathing, inability to obtain or tolerate medications were discussed with the patient. She acknowledged understanding. TIME SPENT: Greater than 45 minutes was spent on discharge of this patient. CC: Dr. Glendy Borrero* [id number]/[facility] #: [id number]
--- NOTE | 2016-05-02 09:12 | PN ---
Progress Note - Progress Note SOAP: Subjective: []Patient seen OOB in chair. Worked with PT yesterday with ambulation and did well. Denied for PMRU admission but will go to rehab at [facility] [place] today. Pain well managed left ankle. Objective: [] Vital Signs Temp 97.9 F 05/02/16 07:33 Pulse 70 05/02/16 07:33 Resp 16 05/02/16 07:44 BP 115/55 05/02/16 07:33 Pulse Ox 97 05/02/16 07:44 Intake & Output 05/01/16 05/02/16 05/02/16 18:59 06:59 18:59 Intake Total 1040 670 Output Total 1000 1150 Balance 40 -480 Intake: Oral 1040 670 Output: Urine 1000 1150 Left ankle splint remains C/D/I Toes pink and warm, moving well left foot Assessment: []s/p ORIF trimalleolar ankle fracture POD#4 Plan: []Remain NWB Left LE Discharge to rehab today Follow up in 10- [address] Napier in office.
[2016-05-02] MEDS: FLUoxetine CAP* 10 MG PO SCH (09:53)
[2016-05-02] MEDS: buPROPion TAB* 100 MG PO SCH (09:53)
[2016-05-02] MEDS: metFORMIN* 500 MG TAB PO SCH (09:53)
[2016-05-02] MEDS: Docusate CAP* 100 MG PO SCH (09:53)
[2016-05-02] MEDS: ARIPiprazole TAB* 5 MG PO SCH (09:54)
--- NOTE | 2016-05-02 10:24 | DCNOTE ---
Subjective Date of Service: 05/02/16 Interval History: Seen and examined this AM No complaint overnight slept in the bed pain well controlled Family History: Unchanged from Admission - Social History: Unchanged from Admission Past Medical History: Unchanged from Admission Objective Active Medications: Acetaminophen (Tylenol Tab*) 650 mg PO Q6H PRN PRN Reason: FEVER/PAIN Last Admin: 05/02/16 04:34 Dose: 650 mg Albuterol (Ventolin Hfa Inhaler*) 1 puff INH Q6H PRN PRN Reason: SOB/WHEEZING Alprazolam (Xanax Tab*) 0.25 mg PO Q6H PRN PRN Reason: ANXIETY Amphetamine/Dextroamphetamine (Adderall Tab*) 20 mg PO TID PRN PRN Reason: CONCENTRATION Aripiprazole (Abilify Tab*) 10 mg PO DAILY [facility] Last Admin: 05/02/16 09:54 Dose: 10 mg Bupropion HCl (Wellbutrin Tab*) 100 mg PO DAILY [facility] Last Admin: 05/02/16 09:53 Dose: 100 mg Dextrose (D50w Syringe 50 Ml*) 12.5 gm IV PUSH .FOR FS < 60 - SS PRN PRN Reason: FS < 60 Docusate Sodium (Colace Cap*) 200 mg PO BID [facility] Last Admin: 05/02/16 09:53 Dose: 200 mg Enoxaparin Sodium (Lovenox(*)) 40 mg SUBCUT 2200 [facility] Last Admin: 05/01/16 22:37 Dose: 40 mg Fluoxetine HCl (Prozac Cap*) 10 mg PO DAILY [facility] Last Admin: 05/02/16 09:53 Dose: 10 mg Hydralazine HCl (Apresoline Iv*) 10 mg IV Q4H PRN PRN Reason: Systolic BP >170 MMHG Melatonin (Melatonin (Nf)) 3 mg PO BEDTIME PRN; Protocol PRN Reason: Sleep Metformin HCl (Glucophage*) 500 mg PO 0800,1700 [facility] Last Admin: 05/02/16 09:53 Dose: 500 mg Omeprazole (Prilosec Cap*) 20 mg PO DAILY@0600 [facility] Last Admin: 05/02/16 05:43 Dose: 20 mg Ondansetron HCl (Zofran Inj*) 4 mg IV Q6H PRN PRN Reason: NAUSEA Oxycodone HCl (Roxycodone Tab*) 5 mg PO Q4H PRN PRN Reason: PAIN - MODERATE Last Admin: 04/30/16 16:40 Dose: 5 mg Oxycodone HCl (Roxycodone Tab*) 10 mg PO Q4H PRN PRN Reason: PAIN - SEVERE Last Admin: 05/02/16 09:54 Dose: 10 mg Polyethylene Glycol/Electrolytes (Miralax*) 17 gm PO DAILY PRN PRN Reason: CONSTIPATION Last Admin: 05/01/16 11:52 Dose: 17 gm Senna (Senokot Tab*) 2 tab PO BEDTIME [facility] Last Admin: 05/01/16 19:58 Dose: 2 tab Vital Signs 05/01/16 05/01/16 05/01/16 11:38 11:46 13:46 Temperature 98.1 F Pulse Rate 80 Respiratory 18 16 16 Rate Blood Pressure 113/44 (mmHg) O2 Sat by Pulse 98 Oximetry 05/01/16 05/01/16 05/01/16 15:01 16:51 17:57 Temperature 98.3 F Pulse Rate 86 Respiratory 14 16 Rate Blood Pressure 127/56 (mmHg) O2 Sat by Pulse 95 95 Oximetry 05/01/16 05/01/16 05/01/16 17:58 19:15 19:43 Temperature 98.5 F Pulse Rate 83 Respiratory 20 17 Rate Blood Pressure 128/56 (mmHg) O2 Sat by Pulse 95 96 Oximetry 05/01/16 05/01/16 05/01/16 19:44 19:57 22:48 Temperature Pulse Rate Respiratory 17 16 17 Rate Blood Pressure (mmHg) O2 Sat by Pulse Oximetry 05/01/16 05/02/16 05/02/16 23:24 00:48 04:26 Temperature 98.6 F 98.4 F Pulse Rate 78 88 Respiratory 16 16 16 Rate Blood Pressure 110/52 124/60 (mmHg) O2 Sat by Pulse 96 96 Oximetry 05/02/16 05/02/16 05/02/16 04:33 06:33 07:33 Temperature 97.9 F Pulse Rate 70 Respiratory 18 16 18 Rate Blood Pressure 115/55 (mmHg) O2 Sat by Pulse 97 Oximetry 05/02/16 05/02/16 07:44 09:54 Temperature Pulse Rate Respiratory 16 16 Rate Blood Pressure (mmHg) O2 Sat by Pulse 97 Oximetry Oxygen Devices in Use Now: None Appearance: NAD Eyes: No Scleral Icterus Neck: NL Appearance and Movements; NL JVP, Trachea Midline Respiratory: Symmetrical Chest Expansion and Respiratory Effort, Clear to Auscultation Cardiovascular: RRR Abdominal: NL Sounds; No Tenderness; No Distention, No Hepatosplenomegaly Lymphatic: No Cervical Adenopathy Skin: - - toes NV intact Neurological: Alert and Oriented x 3 Result Diagrams: 05/01/16 06:35 05/01/16 06:35 Additional Lab and Data: Assess/Plan/Problems-Billing Assessment: 60 yo F with hx of HTN, CECILIA, pre-DM2, depression p/w L ankle fracture s/p ORIF 04/28/16 - Patient Problems (1) Ankle fracture, left Comment: Appreciate Ortho assistance ORIF 04/28/16 Continue analgesia - [place] today (2) Depression Comment: wellbutrin, abilify, xanax (3) Diabetes Comment: Start metformin 500mg BID with plan to d/c on this dose stop ISS (4) HTN (hypertension) Comment: BPs stable, not on home medications
== END 2016-05-02 11:15 | DRG 494 ==
LOC: ED 17:48 → SSU 20:26 → OBSVTOIN 04-28 12:14
PROVIDERS: ADMIT Hospitalist; ATTEND Internal Medicine
PROC: 0QSH04Z Reposition Left Tibia with Internal Fixation Device, Open Approach (ICD-10-PCS; 2016-04-28)
PROC: 0QSK04Z Reposition Left Fibula with Internal Fixation Device, Open Approach (ICD-10-PCS; principal; 2016-04-28 13:45)
DX: S82.852A Displaced trimalleolar fracture of left lower leg, initial encounter for closed fracture (principal); I10 Essential (primary) hypertension; W18.30XA Fall on same level, unspecified, initial encounter; Y92.009 Unspecified place in unspecified non-institutional (private) residence as the place of occurrence of the external cause; F32.9 Major depressive disorder, single episode, unspecified; R73.03 Prediabetes; F41.9 Anxiety disorder, unspecified; K59.00 Constipation, unspecified; G47.33 Obstructive sleep apnea (adult) (pediatric); Z79.1 Long term (current) use of non-steroidal anti-inflammatories (NSAID); Z79.82 Long term (current) use of aspirin; Z79.899 Other long term (current) drug therapy; Z83.3 Family history of diabetes mellitus; Z84.89 Family history of other specified conditions; Z82.49 Family history of ischemic heart disease and other diseases of the circulatory system
CPT/HCPCS: 36415; 71010; 76001; 80048; 80053; 83036; 85025; 86140; 93005; 94760; A9270-GY; C1713; C1776; J0690; J1100; J1170; J1644; J1650; J1885; J2250; J2310; J2405; J2704; J3010

== ENCOUNTER → 2016-08-04 12:01 | Day surgery (SDC) | payer MEDICARE ==
[~2016-08-04 12:01] MED LIST: Buffered Lidocaine 0.9% SYRIN* 5 ML/SYR SYRINGE ONE; Bupivacaine 0.5% W/EPI SDV* 30 ML VIAL ONE; Dexamethasone IV* 4 MG/ML 1 ML (4 MG) IV SLOW PU ONE; Dexamethasone IV* 4 MG/ML 1 ML (4 MG) ONE; DiMENhydriNATE IV* 50 MG/ML VIAL IV PUSH PRN; Famotidine IV* 10 MG/ML 2 ML (20 mg) IV ONE; Famotidine IV* 10 MG/ML 2 ML (20 mg) ONE; Ketorolac INJ* 30 MG/ML 1 ML VIAL ONE; Midazolam* 1 MG/ML 5 ML VIAL (5 MG) ONE; Ondansetron INJ* 2 MG/ML VIAL IV PRN; Ondansetron INJ* 2 MG/ML VIAL ONE; Propofol* 10 MG/ML 20 ML BTL IV PUSH ONE; ceFAZolin 2 GM PREMIX(*) 2 GM/50 ML BAG IVPB ONE; fentaNYL* 50 MCG/ML 2 ML VIAL (100 MCG VIAL) IV PRN; fentaNYL* 50 MCG/ML 2 ML VIAL (100 MCG VIAL) ONE; oxyCODONE/Acetamin 5/325 MG* TAB PO PRN
--- NOTE | 2016-08-04 16:05 | RAD ---
INDICATION: Traumatic fracture left ankle removal of syndesmotic screw. COMPARISON: Comparison is made with a prior x-ray study of the left ankle from August 03, 2016. TECHNIQUE: 28 seconds of intermittent fluoroscopic guidance were provided and 2 spot films of the left ankle were obtained in the operating room. FINDINGS: The patient is status post operative reduction and internal fixation of fractures of the distal tibia and fibula. There are surgical pins and screws in the distal tibia and a metallic plate present along the lateral aspect of the distal fibula transfixed with multiple screws. There has been removal of the syndesmotic screw. IMPRESSION: INTRAOPERATIVE CONTROL FILMS. CPT II Codes: 6045F
[2016-08-04 16:36] VITALS: BP 130/76
--- NOTE | 2016-08-05 03:48 | OP ---
OPERATIVE NOTE: DATE OF OPERATION: 08/04/16 DATE OF : 51 SURGEON: Robbie Napier MD HAND TRUCKER: FRANCISCO De La Cruz PHYSICIAN HAND TRUCKER: The presence of a physician health care legal assistant was required for the patient setup and retracting throughout the case. ANESTHESIOLOGIST: Abel Glover MD ANESTHESIA: Monitored anesthesia care (MAC), local anesthetic. PRE-OP DIAGNOSES: 1. Status post 04/28/16 left ankle open reduction internal fixation, trimalleolar fracture without posterior fixation, with syndesmosis fixation. 2. Retained left ankle syndesmotic screw. POST-OP DIAGNOSES: 1. Status post 04/28/16 left ankle open reduction internal fixation, trimalleolar fracture without posterior fixation, with syndesmosis fixation. 2. Retained left ankle syndesmotic screw. OPERATIVE PROCEDURE: Removal of hardware, left ankle syndesmotic screw. ANTIBIOSIS: 2 g Ancef IV. IV FLUIDS: 1100 cc crystalloid. TOURNIQUET TIME: 10 minutes at 300 mmHg. COMPLICATIONS: None. SPECIMEN: One 3.5 mm fully threaded screw that had bridged the syndesmosis. IMPLANTS: None. EBL: Minimum. INDICATIONS FOR PROCEDURE: The patient is a 61-year-old woman, just over 3 months, at 12 weeks and 4 days status post 04/28/16 left ankle open reduction and internal fixation of a trimalleolar fracture without posterior fixation, but with syndesmotic fixation. The patient had sustained her injury with a fall at home on April 27 from a standing height on to furniture. She was admitted to [facility] through the emergency department, where she was reduced and splinted. 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 The patient's postoperative course from that index procedure has been uncomplicated. She has demonstrated healing on x-ray and her ankle has become more and more comfortable and less painful and she has been more active and borne more weight with it such that now she ambulates at home without the boot, but with the boot outside the home. The patient declared an interest preoperatively in keeping the hardware and taking it home. Of note, the patient was diagnosed perioperatively at the time of the first operation with diabetes mellitus. DESCRIPTION OF PROCEDURE: Preoperative written consent was obtained. Operative extremity was marked in preoperative holding. The patient was taken back to the operating room and placed supine on operating room table. The patient was sedated by Anesthesia, but not intubated. A bump was placed under the patient's left hemipelvis consisting of blankets. The mini C-arm was brought into the room. The left lower extremity was prepped and draped. A surgical time-out was performed. The mini C-arm was brought in after it was prepped and draped. A small 1.5 cm length of incision through the prior incision scar laterally was made, at the level of the syndesmotic screw, as delineated by mini C-arm imaging. Actual incision was made after an Esmarch had been applied and the tourniquet had been elevated to 300 mmHg. The subcutaneous tissue dissection was performed with dissection scissors and spreading. Curette was used to debride the lateral surface of bone and identify the appropriate screw head and debride tissue from its surface. Screwdriver was inserted in screw, malleted in place. Mini C-arm imaging confirmed appropriate screw. Syndesmotic screw was removed. It was confirmed to be fully removed by visual inspection. Mini C-arm confirmed lack of syndesmotic screw and ankle. I performed an external rotating stress test. There was no widening of the medial clear space or the tibiofibular overlap spaces indicating a stable ankle. Irrigation of the wound. A closure of the subcutaneous tissue with 2 buried simple stitches using Vicryl 3-0 suture. A closure of the skin with a running stitches using nylon 4-0 suture. Local anesthetic was injected, approximately 3 cc. It should be noted that local anesthetic was also injected just prior to skin incision, 2 cc. Local anesthetic used during this case was 0.5% Marcaine with epinephrine. After the local was applied at the conclusion of the case, dressing was applied, Xeroform followed by 4x4s, followed by an [place] bandage. The patient was lightened of sedation and transferred to the stretcher and brought to the PACU. DISPOSITION: The patient will be discharged home when medically stable. She will take Percocet as needed for pain control. I will have the patient use the walking boot and weightbearing as tolerated for the next 10 to 14 days until she sees me in clinic; at which point, I will remove all restrictions. [id number]/[facility] #: [id number] [facility]
== END | disposition home or self-care (01) ==
LOC: OR 12:01
PROVIDERS: ATTEND Orthopaedic Surgery
PROC: 0YPB0YZ Removal of Other Device from Left Lower Extremity, Open Approach (ICD-10-PCS; principal; 2016-08-04 13:30)
DX: S82.852D Displaced trimalleolar fracture of left lower leg, subsequent encounter for closed fracture with routine healing (principal); E11.9 Type 2 diabetes mellitus without complications; I10 Essential (primary) hypertension; F41.9 Anxiety disorder, unspecified
CPT/HCPCS: 76000; 88300; J0690; J1100; J1885; J2250; J2405; J2704; J3010

== ENCOUNTER 2017-05-30 15:52 | Emergency (ER) | payer MEDICARE ==
[2017-05-30 16:05] VITALS: BP 144/77
[2017-05-30] MEDS ORDERED: Ondansetron ODT TAB* 4 MG PO ONE (16:21)
--- NOTE | 2017-05-30 16:23 | ED ---
GI/ HPI - HPI Summary HPI Summary: Pt here w/ nausea and vomiting since Sunday. This came on abruptly and without any associated symptoms although she reports she may have had some brief abdominal discomfort when it first started. She does not recall a specific location and has no abdominal pain at this time other than generalized soreness from vomiting/retching. She felt flushed throughout this - possible subjective fever, denies chills. Has a low-grade headache which she believes is from lack of eating. Chart reveals diabetes however she denies and does not take medications for this. She has also not been able to take her medications in the past 2 days due to her nausea with vomiting. She typically takes Wellbutrin, fluoxetine, adderall, abilify, Xanax as needed for anxiety and Clarinex/ albuterol for seasonal allergies. She feels weak at this time and had a friend drive her here today as she just doesn't feel well. History is significant for appendectomy as a child and single oophorectomy due to concern for cancer however this ended up being a benign condition. She denies urinary frequency, dysuria, urgency, flank pain, hematuria, vaginal pain or discharge. Her last bowel movement was yesterday and was small for her - just a couple of "pellets" - she reports she's typically got the "other issue" (looser stools). Has IBS but it never presents in this fashion - denies other bowel issues (ie. Crohn's, colitis, etc). - History of Current Complaint Chief Complaint: UCAbdominalPain Time Seen by Provider: 05/30/17 16:03 Stated Complaint: ABDOMINAL COMPLAINT Hx Obtained From: Patient Pain Intensity: 0 - Additional Pertinent History Primary Care Physician: UNIQUE - Allergy/Home Medications Allergies/Adverse Reactions: Allergies Allergy/AdvReac Type Severity Reaction Status Date / Time No Known Allergies Allergy Verified 05/30/17 15:59 PMH/Surg Hx/FS Hx/Imm Hx Previously Healthy: Yes Endocrine/Hematology History: Reports: Hx Diabetes - Borderline - no meds Cardiovascular History: Reports: Hx Hypertension Respiratory History: Reports: Hx Asthma, Hx Sleep Apnea GI History: Reports: Hx Irritable Bowel, Hx Ulcer - healed from childhood Musculoskeletal History: Reports: Hx Arthritis Sensory History: Denies: Hx Cataracts, Hx Contacts or Glasses, Hx Hearing Aid Opthamlomology History: Denies: Hx Cataracts, Hx Contacts or Glasses Psychiatric History: Reports: Hx Depression - Cancer History Hx Chemotherapy: No Hx Radiation Therapy: No - Surgical History Surgery Procedure, Year, and Place: tonsilectomy. appendectomy. R overy removed ~15years ago. Carpal tunnel Hx Anesthesia Reactions: No Infectious Disease History: No Infectious Disease History: Denies: Traveled Outside the [place] in Last 30 Days - Family History Known Family History: Positive: Diabetes - Social History Lives: With Family Alcohol Use: Rare Hx Substance Use: No Substance Use Type: Reports: None Hx Tobacco Use: Yes Smoking Status (MU): Former Smoker Amount Used/How Often: smoked for 25 years ago 1/2- 1.5 ppd Review of Systems Positive: Fever - subjective?, Fatigue. Negative: Chills Eyes: Negative ENT: Negative Negative: Sore Throat, Ear Ache, Nasal Discharge Cardiovascular: Negative Negative: Palpitations, Chest Pain Respiratory: Negative Negative: Shortness Of Breath, Cough Positive: Vomiting, Nausea. Negative: Diarrhea Genitourinary: Negative Musculoskeletal: Negative Skin: Negative Positive: Headache, Weakness - generalized Positive: Anxious All Other Systems Reviewed And Are Negative: Yes Physical Exam Triage Information Reviewed: Yes Vital Signs On Initial Exam: Initial Vitals Temp Pulse Resp BP Pulse Ox 98.4 F 63 17 144/77 97 05/30/17 16:01 05/30/17 16:01 05/30/17 16:01 05/30/17 16:01 05/30/17 16:01 Vital Signs Reviewed: Yes Appearance: Positive: Well-Nourished, Ill-Appearing - appears fatigued, Pain Distress - mild - reports strong nausea Skin: Positive: Warm, Skin Color Reflects Adequate Perfusion, Dry Head/Face: Positive: Normal Head/Face Inspection Eyes: Positive: Normal, EOMI, Conjunctiva Clear - Anicteric sclera ENT: Positive: Hearing grossly normal, Pharynx normal - Mucosa dry Neck: Positive: Supple, Nontender Respiratory/Lung Sounds: Positive: Clear to Auscultation, Breath Sounds Present. Negative: Rales, Rhonchi, Wheezes Cardiovascular: Positive: Normal, RRR, S1, S2 Abdomen Description: Positive: No Organomegaly, Soft, Other: - Gen. discomfort with palpation however no focal area of acute tenderness, no rebounding. Negative: CVA Tenderness (R), CVA Tenderness (L), Distended, Guarding, Hernia @ , Hepatomegaly Bowel Sounds: Positive: Present Pelvic Exam: Positive: Other - Deferred Musculoskeletal: Positive: Normal, Strength/ROM Intact Neurological: Positive: Normal, Sensory/Motor Intact, Alert, Oriented to Person Place, Time, CN Intact II-III Psychiatric: Positive: Anxious Diagnostics - Vital Signs Vital Signs Temp Pulse Resp BP Pulse Ox 05/30/17 16:01 98.4 F 63 17 144/77 97 - Laboratory Lab Statement: Any lab studies that have been ordered have been reviewed, and results considered in the medical decision making process. GIGU Course/Dx - Course Course Of Treatment: Patient presents with nausea and vomiting for the past 2 days. She has not been able to take her 5 mental health medications nor her clarinex since this started. She feels weak and anxious. Without fever, vital sign abnormality, and a negative influenza swab, suspect this could be a viral GI syndrome however cannot rule out other pathology without lab testing. H/o ab surgery - r/o obstruction (could have done this here w/ XR). Patient did not want to stay to see if her symptoms improved with IV fluids and Zofran so she was sent to the hospital via ambulance as she also did not feel she could drive herself there. Departed in stable condition. - Diagnoses Provider Diagnoses: Nausea and vomiting in adult Discharge - Sign-Out/Discharge Documenting (check all that apply): Discharge - Discharge Plan Condition: Stable Disposition: [facility] Patient Education Materials: Acute Nausea and Vomiting (ED), Dehydration (ED) Additional Instructions: Pt transferred to ED via ambulance. - Billing Disposition and Condition Condition: STABLE Disposition: [facility]
[2017-05-30] MEDS ORDERED: Ondansetron INJ* 2 MG/ML VIAL IV ONE (16:28)
[2017-05-30] MEDS ORDERED: NS 0.9% 1000 ML* 1,000 ML IV ONE (16:29)
== END 2017-05-30 16:59 | disposition short-term general hospital (02) ==
LOC: UCEAST 15:52
DX: R11.2 Nausea with vomiting, unspecified (principal); R53.83 Other fatigue; R53.1 Weakness; R51 Headache; R73.03 Prediabetes; I10 Essential (primary) hypertension; J45.909 Unspecified asthma, uncomplicated; K58.9 Irritable bowel syndrome, unspecified; F32.9 Major depressive disorder, single episode, unspecified; Z87.891 Personal history of nicotine dependence
CPT/HCPCS: 87502; 96360; 96374; 99213; A9270-GY; G0463; J2405

== ENCOUNTER 2017-05-30 17:23 | Emergency (ER) | payer MEDICARE ==
[2017-05-30] MEDS ORDERED: NS 0.9% 1000 ML* 1,000 ML IV ONE ×2 (17:36→18:42)
--- NOTE | 2017-05-30 17:47 | ED ---
GI/ HPI - HPI Summary HPI Summary: 62F presents with nausea and vomiting for the past 2 days. She states Sunday morning she developed vomiting. She states she was not able to keep anything down. On Sunday she was able to drink liquids but felt very nauseous all day. She states now she feels very weak. She denies any sore throat, chest pain, or SOB. She denies any known fever but admits to chills. She admits to mild generalied headache she believes is from dehydration. She admits to occasionally twinges of abdominal pain but denies any now. She has had an oophorectomy and appendectomy. She denies any diarrhea. She had small bowel movement today. She denies any dysuria or flank pain. She denies eating anything different. No one else is sick. She was transferred via EMS from urgent care. She was given zofran in route and now feels better. no history of bowel issues such as diverticulitis. - History of Current Complaint Chief Complaint: EDNauseaVomitDiarrh Time Seen by Provider: 05/30/17 17:36 Stated Complaint: NAUSEA/VOMITTING Pain Intensity: 0 - Additional Pertinent History Primary Care Physician: [id number] - Allergy/Home Medications Allergies/Adverse Reactions: Allergies Allergy/AdvReac Type Severity Reaction Status Date / Time No Known Allergies Allergy Verified 05/30/17 15:59 PMH/Surg Hx/FS Hx/Imm Hx Endocrine/Hematology History: Reports: Hx Diabetes - Borderline - no meds Cardiovascular History: Reports: Hx Hypertension Respiratory History: Reports: Hx Asthma, Hx Sleep Apnea GI History: Reports: Hx Irritable Bowel, Hx Ulcer - healed from childhood Musculoskeletal History: Reports: Hx Arthritis Sensory History: Denies: Hx Cataracts, Hx Contacts or Glasses, Hx Hearing Aid Opthamlomology History: Denies: Hx Cataracts, Hx Contacts or Glasses Psychiatric History: Reports: Hx Depression - Cancer History Hx Chemotherapy: No Hx Radiation Therapy: No - Surgical History Surgery Procedure, Year, and Place: tonsilectomy. appendectomy. R overy removed ~15years ago. Carpal tunnel Hx Anesthesia Reactions: No Infectious Disease History: No Infectious Disease History: Denies: Traveled Outside the [place] in Last 30 Days - Family History Known Family History: Positive: Diabetes - Social History Alcohol Use: Rare Hx Substance Use: No Substance Use Type: Reports: None Hx Tobacco Use: Yes Smoking Status (MU): Former Smoker Amount Used/How Often: smoked for 25 years ago 1/2- 1.5 ppd Review of Systems Positive: Fatigue. Negative: Fever Negative: Chest Pain Negative: Shortness Of Breath Positive: Vomiting, Nausea. Negative: Abdominal Pain, Diarrhea All Other Systems Reviewed And Are Negative: Yes Physical Exam Triage Information Reviewed: Yes Vital Signs On Initial Exam: Initial Vitals Temp Pulse Resp BP Pulse Ox 98.3 F 58 16 132/67 97 05/30/17 17:26 05/30/17 17:26 05/30/17 17:26 05/30/17 17:26 05/30/17 17:26 Vital Signs Reviewed: Yes Appearance: Positive: Well-Appearing Skin: Positive: Warm, Dry Head/Face: Positive: Normal Head/Face Inspection Eyes: Positive: Normal, EOMI, EDMUNDO, Conjunctiva Clear ENT: Positive: Normal ENT inspection, Pharynx normal, TMs normal Respiratory/Lung Sounds: Positive: Clear to Auscultation, Breath Sounds Present Cardiovascular: Positive: Normal, RRR Abdomen Description: Positive: Nontender, Soft Bowel Sounds: Positive: Present Musculoskeletal: Positive: Normal Neurological: Positive: Normal Psychiatric: Positive: Normal Diagnostics - Vital Signs Vital Signs Temp Pulse Resp BP Pulse Ox 05/30/17 17:26 98.3 F 58 16 132/67 97 - Laboratory Result Diagrams: 05/30/17 17:45 05/30/17 17:45 Lab Statement: Any lab studies that have been ordered have been reviewed, and results considered in the medical decision making process. Re-Evaluation - Re-Evaluation First Eval Re-Evaluation Time: 19:18 Change: Improved Comment: feel better after fluids, discussed CT for bowel obstruction and patient declined. Second Eval Re-Evaluation Time: 19:43 Change: Improved Comment: patient feels less weak and would like to go, would like something to eat GIGU Course/Dx - Course Course Of Treatment: 62F presents with nausea and vomiting for the past 2 days. She states Rian morning she developed vomiting. She states she was not able to keep anything down. On Sunday she was able to drink liquids but felt very nauseous all day. She states now she feels very weak. She denies any headache, sore throat, chest pain, or SOB. She admits to occasionally twinges of abdominal pain but denies any now. She has had an oophorectomy and appendectomy. She denies any diarrhea. She had small bowel movement today. She denies any dysuria or flank pain. She denies eating anything different. No one else is sick. She was transferred via EMS from urgent care. She was given zofran in route and now feels better. on exam abdomen soft nontender. labs wbc normal. sodium and cloride low so gave three liters. potassium low so gave supplement. patient declined CT. will discharge with zofran. patient understand and agrees with plan. - Diagnoses Differential Diagnoses - Female: Gastroenteritis (Viral), Gastroenteritis ( Bacterial), Vomiting Provider Diagnoses: Vomiting Discharge - Sign-Out/Discharge Documenting (check all that apply): Discharge - Discharge Plan Condition: Stable Disposition: HOME Prescriptions: Ondansetron ODT TAB* [Zofran 4 MG Odt TAB*] 4 mg PO Q6H PRN #16 tab.odt PRN Reason: Nausea Patient Education Materials: Acute Nausea and Vomiting (ED) Referrals: Glendy Borrero MD [Primary Care Provider] - Additional Instructions: Can take Zofran up to two tablets every 6 hours as needed for nausea Drink small amounts of fluid as tolerated When able to eat follow BRAT diet: Bananas, rice, applesauce, toast Take Tylenol for pain as needed every 6 hours Follow up with primary within 5 days Return to ED if develop persistent abdominal pain or any new or worsening symptoms - Billing Disposition and Condition Condition: STABLE Disposition: HOME
[2017-05-30 17:59] LABS: ABS Basophils 0 10^3/ul (0-0.2); ABS Eosinophils 0 10^3/ul (0-0.6); ABS Lymphocytes 1.4 10^3/ul (1.0-4.8); ABS Monocytes 0.6 10^3/ul (0-0.8); ABS Neutrophils 4.5 10^3/ul (1.5-7.7); ABS Nucleated RBC 0 10^3/ul; Eosinophil % 0.1 % (0-6); Hematocrit 42 % (35-47); Hemoglobin 13.9 g/dl (12.0-16.0); Lymphocyte % 22.1 % (25-47); Mean Corpuscular HGB Conc 33 g/dl (31-36); Mean Corpuscular Hemoglobin 30 pg (27-31); Mean Corpuscular Volume 89 fL (80-97); Nucleated Red Blood Cells % 0; Platelet Count 237 10^3/ul (150-450); Red Cell Distribution Width 14 % (10.5-15); White Blood Count 6.6 10^3/ul (3.5-10.8)
[2017-05-30 18:16] LABS: EGFR Non-African American 75.5 (>60)
[2017-05-30] MEDS ORDERED: Potassium Chlor TAB* 20 MEQ TAB.ER PO ONE (18:23)
[2017-05-30 18:43] LABS: Urine Appearance Clear; Urine Blood 1+ (Negative); Urine Color Straw; Urine Ketones Negative (Negative); Urine Protein Negative (Negative); Urine Specific Gravity 1.004 (1.010-1.030); Urine Urobilinogen Negative (Negative)
[2017-05-30 20:17] VITALS: BP 131/77
== END 2017-05-30 20:17 | disposition home or self-care (01) ==
LOC: ED 17:23
DX: R11.2 Nausea with vomiting, unspecified (principal); E11.9 Type 2 diabetes mellitus without complications; Z87.891 Personal history of nicotine dependence; Z79.899 Other long term (current) drug therapy
CPT/HCPCS: 36415; 80053; 81003; 81015; 83690; 83735; 85025; 86141; 87086; 96360; 99284; A9270-GY

== ENCOUNTER → 2017-11-10 10:42 | Emergency (ER) | payer MEDICARE ==
[~2017-11-10 10:42] MED LIST changes: +Acetaminophen TAB* 325 MG PO ONE; -Buffered Lidocaine 0.9% SYRIN* 5 ML/SYR SYRINGE ONE; -Bupivacaine 0.5% W/EPI SDV* 30 ML VIAL ONE; -Dexamethasone IV* 4 MG/ML 1 ML (4 MG) IV SLOW PU ONE; -Dexamethasone IV* 4 MG/ML 1 ML (4 MG) ONE; -DiMENhydriNATE IV* 50 MG/ML VIAL IV PUSH PRN; -Famotidine IV* 10 MG/ML 2 ML (20 mg) IV ONE; -Famotidine IV* 10 MG/ML 2 ML (20 mg) ONE; +Ibuprofen TAB* 600 MG PO ONE; -Ketorolac INJ* 30 MG/ML 1 ML VIAL ONE; -Midazolam* 1 MG/ML 5 ML VIAL (5 MG) ONE; -Ondansetron INJ* 2 MG/ML VIAL IV PRN; -Ondansetron INJ* 2 MG/ML VIAL ONE; -Propofol* 10 MG/ML 20 ML BTL IV PUSH ONE; -ceFAZolin 2 GM PREMIX(*) 2 GM/50 ML BAG IVPB ONE; -fentaNYL* 50 MCG/ML 2 ML VIAL (100 MCG VIAL) IV PRN; -fentaNYL* 50 MCG/ML 2 ML VIAL (100 MCG VIAL) ONE; -oxyCODONE/Acetamin 5/325 MG* TAB PO PRN
[2017-11-10 11:06] VITALS: BP 117/68
--- OUTSIDE RECORDS SUMMARY | 2017-11-10 11:14 | XMS REPORT ---
:1955 External Reference #:[id number] Author Organization [facility] Address [address] [place] [address] [place] [address] Phone [phone] Care Team Providers Name Role Phone Glendy Borrero MD Primary Care Physician Unavailable Payers Type Date Identification Numbers Payment Provider Subscriber Medicare Primary Policy Number: [id number] Medicare Meghan Parramary ellen PayID: [id number] [address] [place] [address] [facility] Policy Number: [id number] [facility] Meghan Truong PayID: [id number] [address] [place] [address] Problems Date Description Provider Status Onset: 03/09/2010 Depressive disorder Glendy Borrero M.D. Active Onset: 07/04/2011 Type 2 diabetes mellitus Glendy Borrero M.D. Active Onset: 03/09/2010 Benign essential hypertension Glendy Borrero M.D. Active Onset: 03/09/2010 Hyperparathyroidism Glendy Borrero M.D. Active Onset: 09/24/2017 Obstructive sleep apnea syndrome Britney Sandhu DNP, RN, Active [employer] Onset: 09/24/2017 Body mass index 30+ - obesity Britney Sandhu DNP, RN, Active [employer] Family History Date Family Member(s) Problem(s) Comments General Paternal Uncle from COPD : (age 88 Father due to Heart Probably [place] - sudden Years) Disease Siblings 3 2 brothers and 1 sister. 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 Smoked 1.5 pk per day at most. Daily Caffeine Consumes on average 1 cup of regular coffee per day Exercise Type/Frequency Exercises sporadically General Hx Text Allergies, Adverse Reactions, Alerts Date Description Reaction Status Severity Comments 02/01/2017 Dairy Ease Digestive upset active Mild 02/01/2017 Banana Extract digestive upset active Mild to Moderate 02/01/2017 Encampment digestive upset active Mild to Moderate 12/10/2009 No Known Drug Allergy inactive Medications Medication Date Status Form Strength Qnty SIG Indications Ordering Provider Atorvastatin 11/05 Active Tablets 10mg 30tab 1 by mouth E11.9 s every day Patrick Borrero Ventolin HFA 02/21 Active Aerosol 108(90Bas 8gm 2 puffs 4 e) times a Cotton, mcg/Act day as M.D. needed Desloratadine 04/04 Active Tablets 5mg 30tab Take 1 s Tablet By Cotton, Mouth M.D. Every Day as Needed For Allergy Ketoconazole 12/05 Active Cream 2% 30gm apply thin R21 film twice Cotton, daily as M.D. needed Valtrex 12/20 Active Tablets 500mg 24tab take one s tablet by Cotton, mouth M.D. twice a day for 3 days as needed Aspirin 12/[address] 81mg 30tab 1 by mouth s once daily Patrick Borrero Alprazolam Active Tablets ER .25mg take 24HR one-half tablet as needed Fluoxetine HCL Active Capsules 20mg qd Member, MD Maxwell Bupropion HCL Active Tablets ER 300mg 1 PO qd Member, ER (XL) 24HR MD Maxwell Amphetamine-Dex Active Tablets 20mg 1 PO tid Member, troamphetamine MD Maxwell Aripiprazole Active Tablets 5mg qd Ondansetron HCL 05/30 Hx Tablets 4mg 20tab one by s mouth Cotton, - three M.D. 09/23 times /2018 daily as needed for nausea Flovent HFA 03/06 Hx Aerosol 110mcg/Ac 12uni 2 puffs t ts twice Cotton, - daily M.D. 06/06 Oseltamivir 03/05 Hx Capsules 75mg 10cap 1 by mouth s once daily Cotton, - for 10 M.D. 06/06 days Asmanex HFA 03/05 Hx Aerosol 100mcg/Ac 13gm 2 puff t twice a Cotton, - day M.D. 03/06 Oxycodone-Aceta 08/04 Hx Tablets 5-325mg 30tab 1-2 by Robbie clark s mouth Quyen, - every 4-6 MD 01/04 hours needed for pain. Dicyclomine HCL 12/15 Hx Capsules 10mg 40cap take 1-2 K58.0 s capsules Cotton, - by mouth M.D. 01/04 every hours as needed Nystop 12/05 Hx Powder [id number] 60gm apply 782.1 t/GM twice Cotton, - daily to M.D. 06/15 affected areas Dicyclomine HCL 12/23 Hx Capsules 10mg 30cap 1 by mouth 564.1 s three Cotton, - times M.D. 06/15 daily needed Ventolin HFA 12/21 Hx Aerosol 108(90Bas 18gm 2 puffs 4 e) mcg/ac times a Cotton, - day as M.D. 02/21 needed Ketoconazole 12/14 Hx Cream 2% 60gm apply thin 782.1 film twice Cotton, - daily M.D. 11/29 Valtrex 12/11 Hx Tablets 500mg 30tab 1 tablet s twice a Cotton, - day for 3 M.D. 11/24 days needed Lexapro 12/11 Hx Tablets 10mg. three tablets - every 07/14 evening Clarinex 09/16 Hx Tablets 5mg 30tab take 1 s tablet Cotton, - orally M.D. 04/04 once a day as needed for allergy HCTZ 08/18 Hx 25mg. 45uni 1/2 tablet ts once daily Cotton, - prn M.D. 04/04 Albuterol Hx 1unit 2 puffs 4 Glendy Inhaler / s Times A Cotton, - Day as M.D. 12/21 Zovirax Hx Capsules 200mg 1 Tablet Glendy /0000 Twice A Cotton, - Day For M.D. 12/11- as Needed Adderall XR Hx Tablets 20mg. 30tab two Unknown /0000 s tablets - every 01/04 morning and two tablets every afternoon Bupropion HCL Hx Tablets ER 150mg 180ta 1 tablet Unknown ER /0000 12HR bs daily - 01/04 Abilify Hx Tablets 2mg 40tab 1 tablet Unknown /0000 s every - evening 04/04 prn Ciclopirox Hx Cream 0.77% 30gm apply to Unknown Olamine / affected - area qd as 11/29 Prozac Hx 40mg 1 by mouth Unknown /0000 every day - 01/04 Abilify Hx Tablets 10mg 1/2 PO qd Member, Geraldine Arreola MD 01/04 Bupropion HCL Hx Tablets ER 300mg Unknown ER (XL) /0000 24HR - 01/04 Metformin HCL Hx Tablets 500mg 60tab 1 by mouth Glendy /0000 s twice a Cotton, - day M.D. 01/04 Docusate Sodium Hx Capsules 100mg 1 by mouth Unknown /0000 twice a - day 01/04 Bisacodyl Hx Suppository 10mg if no bm Unknown /0000 after 4 - days 01/04 rectally as needed Polyethylene 00 Hx Powder [id number] Unknown Glycol 3350 /0000 - 01/04 Hydrocodone-Hamlet Hx Tablets 5-325mg 1-2 tabs Unknown taminophen /0000 by mouth - every 4- 6 01/04 hours needed pain Methadone HCL Hx Tablets 5mg 3 tabs by Unknown /0000 mouth - every 01/04 and 2 tabs by mouth every night Medications Administered in Office Medication Date Status Form Strength Qnty SIG Indications Ordering Provider Mazin Administered Injection Robbie F 40MG 018 MD Quyen Immunizations CPT Code Status Date Vaccine Reaction Lot # [id number] Given 01/04/2017 Influenza Virus Vaccine, [id number] Quadrivalent, Split, Preservative Free 18318 Given 12/27/2015 Influenza Virus Vaccine, no imediate reaction [id number] Quadrivalent, Split Virus, [place].. [place] [address] Given 12/15/2014 Influenza Virus Vaccine, [id number] Quadrivalent, Split, Preservative Free 77110 Given 12/05/2013 Influenza Virus Vaccine, [id number] Quadrivalent, Split, Preservative Free 71228 Given 11/29/2012 Flu Vaccine Split Virus [id number] Preservative Free For Indiv 3Yr Older 60337 Given 07/17/2012 Tdap - [id number] Tetanus/Diptheria/Acellula r Pertussis [id number] Given 03/12/2012 Fluvirin Im 3Yrs And Older [id number] 10168 Given 10/03/2011 Pneumonia Vaccine [id number] 28621 Given 02/24/2011 Influenza Virus 3Yrs & [id number] Over 48088 Given 12/17/2006 Influenza Virus 3Yrs & Over Vital Signs Date Vital Result Comment 11/08/2017 Height 59 inches 4'11" Heart Rate 68 /min BP Systolic 128 mmHg BP Diastolic 72 mmHg Body Temperature 98.3 F Pain Level 0 11/06/2017 Height 59 inches 4'11" Weight 177.00 lb Heart Rate 68 /min BP Systolic Sitting 142 mmHg Lue reg cuff BP Diastolic Sitting 100 mmHg Lue reg cuff Respiratory Rate 14 /min O2 % BldC Oximetry 98 % On Ra BMI (Body Mass Index) 35.7 kg/m2 11/05/2017 Height 59 inches 4'11" Weight 180.00 lb Heart Rate 84 /min BP Systolic Sitting 134 mmHg BP Diastolic Sitting 76 mmHg O2 % BldC Oximetry 99 % BMI (Body Mass Index) 36.4 kg/m2 10/04/2017 Height 59 inches 4'11" Heart Rate 98 /min BP Systolic 122 mmHg BP Diastolic 76 mmHg Respiratory Rate 18 /min Body Temperature 98.0 F Pain Level 8 09/24/2017 Height 59 inches 4'11" Weight 173.38 lb Heart Rate 80 /min BP Systolic Sitting 146 mmHg Lue reg cuff BP Diastolic Sitting 92 mmHg Lue reg cuff Respiratory Rate 16 /min O2 % BldC Oximetry 97 % On Ra BMI (Body Mass Index) 35.0 kg/m2 06/07/2017 Height 59 inches 4'11" Weight 172.00 lb Heart Rate 68 /min BP Systolic Sitting 126 mmHg BP Diastolic Sitting 82 mmHg Respiratory Rate 14 /min O2 % BldC Oximetry 97 % BMI (Body Mass Index) 34.7 kg/m2 Neck Circumference in inches 14 05/31/2017 Weight 178.00 lb Heart Rate 60 /min BP Systolic Sitting 122 mmHg BP Diastolic Sitting 80 mmHg Body Temperature 97.3 F O2 % BldC Oximetry 97 % 02/01/2017 Height 59 inches 4'11" Weight 176.00 lb with out shoes Heart Rate 80 /min BP Systolic 124 mmHg Rue lg cuff BP Diastolic 90 mmHg Rue lg cuff BP Systolic Sitting 120 mmHg Lue lg cuff BP Diastolic Sitting 82 mmHg Lue lg cuff BP Systolic Standing 118 mmHg Lue lg cuff BP Diastolic Standing 84 mmHg Lue lg cuff Respiratory Rate 16 /min BMI (Body Mass Index) 35.5 kg/m2 01/04/2017 Height 60 inches 5'0" Weight 172.75 lb Heart Rate 98 /min BP Systolic 118 mmHg BP Diastolic 72 mmHg Body Temperature 97.4 F O2 % BldC Oximetry 99 % BMI (Body Mass Index) 33.7 kg/m2 08/15/2016 Height 60 inches 5'0" Weight 170.00 lb Respiratory Rate 14 /min Body Temperature 96.7 F Pain Level 1 BMI (Body Mass Index) 33.2 kg/m2 08/03/2016 Height 60 inches 5'0" Weight 170.00 lb BP Systolic 120 mmHg BP Diastolic 77 mmHg Respiratory Rate 14 /min Body Temperature 97.0 F Pain Level 1 BMI (Body Mass Index) 33.2 kg/m2 07/05/2016 Height 60 inches 5'0" Weight 170.00 lb BP Systolic 112 mmHg BP Diastolic 82 mmHg Respiratory Rate 16 /min Body Temperature 97.2 F Pain Level 1 BMI (Body Mass Index) 33.2 kg/m2 06/07/2016 Height 60 inches 5'0" Weight 170.00 lb Heart Rate 76 /min BP Systolic 116 mmHg BP Diastolic 68 mmHg Body Temperature 96.9 F Pain Level 1 BMI (Body Mass Index) 33.2 kg/m2 05/18/2016 Height 59 inches 4'11" Weight 170.00 lb Heart Rate 76 /min BP Systolic 122 mmHg BP Diastolic 68 mmHg Respiratory Rate 15 /min Body Temperature 97.1 F Pain Level 3 BMI (Body Mass Index) 34.3 kg/m2 04/13/2016 Weight 172.50 lb Heart Rate 88 /min BP Systolic Sitting 138 mmHg BP Diastolic Sitting 82 mmHg Body Temperature 98.3 F O2 % BldC Oximetry 97 % 12/27/2015 Weight 176.00 lb Heart Rate 92 /min BP Systolic Sitting 126 mmHg 102/ 60 BP Diastolic Sitting 80 mmHg 102/ 60 BP Systolic Standing 110 mmHg BP Diastolic Standing 80 mmHg BP Systolic Lying Down 120 mmHg BP Diastolic Lying Down 76 mmHg Respiratory Rate 15 /min Body Temperature 97.8 F O2 % BldC Oximetry 98 % 09/21/2015 Height 59.25 inches 4'11.25" Weight 170.00 lb Heart Rate 69 /min BP Systolic Sitting 120 mmHg BP Diastolic Sitting 84 mmHg Body Temperature 96.9 F O2 % BldC Oximetry 99 % BMI (Body Mass Index) 34.0 kg/m2 12/15/2014 Height 60 inches 5'0" Weight 174.25 lb Heart Rate 71 /min BP Systolic Sitting 124 mmHg BP Diastolic Sitting 76 mmHg Respiratory Rate 14 /min Body Temperature 97.1 F Pain Level 0 O2 % BldC Oximetry 98 % BMI (Body Mass Index) 34.0 kg/m2 06/15/2014 Height 60 inches 5'0" Weight 173.00 lb Heart Rate 83 /min BP Systolic 111 mmHg BP Diastolic 70 mmHg Body Temperature 97.4 F BMI (Body Mass Index) 33.8 kg/m2 12/05/2013 Height 60 inches 5'0" Weight 173.00 lb Heart Rate 78 /min BP Systolic Sitting 122 mmHg BP Diastolic Sitting 78 mmHg Body Temperature 98.7 F BMI (Body Mass Index) 33.8 kg/m2 07/14/2013 Weight 173.75 lb Heart Rate 72 /min BP Systolic Sitting 120 mmHg BP Diastolic Sitting 74 mmHg 12/05/2012 Height 60 inches 5'0" Weight 175.00 lb Heart Rate 91 /min BP Systolic 112 mmHg BP Diastolic 75 mmHg BMI (Body Mass Index) 34.2 kg/m2 11/29/2012 Height 60 inches 5'0" Weight 175.00 lb Heart Rate 89 /min BP Systolic Sitting 118 mmHg BP Diastolic Sitting 84 mmHg BMI (Body Mass Index) 34.2 kg/m2 04/04/2012 Height 60.5 inches 5'0.50" Weight 166.00 lb Heart Rate 88 /min BP Systolic Sitting 124 mmHg BP Diastolic Sitting 80 mmHg BMI (Body Mass Index) 31.9 kg/m2 02/23/2012 Height 60.5 inches 5'0.50" Weight 171.00 lb Heart Rate 88 /min BP Systolic Sitting 126 mmHg BP Diastolic Sitting 72 mmHg BMI (Body Mass Index) 32.8 kg/m2 01/11/2012 Height 60.5 inches 5'0.50" Weight 165.00 lb Heart Rate 92 /min BP Systolic Sitting 110 mmHg BP Diastolic Sitting 66 mmHg Body Temperature 98.4 F BMI (Body Mass Index) 31.7 kg/m2 10/03/2011 Height 60.5 inches 5'0.50" Weight 163.00 lb Heart Rate 82 /min BP Systolic Sitting 122 mmHg BP Diastolic Sitting 78 mmHg BMI (Body Mass Index) 31.3 kg/m2 07/04/2011 Height 60.5 inches 5'0.50" Weight 175.00 lb Heart Rate 84 /min BP Systolic Sitting 116 mmHg BP Diastolic Sitting 64 mmHg BMI (Body Mass Index) 33.6 kg/m2 05/22/2011 Height 60.5 inches 5'0.50" Weight 183.00 lb Heart Rate 84 /min BP Systolic Sitting 136 mmHg BP Diastolic Sitting 66 mmHg BMI (Body Mass Index) 35.1 kg/m2 03/27/2011 Height 60.5 inches 5'0.50" Weight 174.00 lb Heart Rate 74 /min BP Systolic Sitting 114 mmHg BP Diastolic Sitting 66 mmHg BMI (Body Mass Index) 33.4 kg/m2 02/24/2011 Height 60.5 inches 5'0.50" Weight 179.00 lb Heart Rate 76 /min BP Systolic Sitting 134 mmHg BP Diastolic Sitting 80 mmHg O2 % BldC Oximetry 97 % BMI (Body Mass Index) 34.4 kg/m2 12/23/2010 Height 60.5 inches 5'0.50" Weight 181.00 lb Heart Rate 68 /min BP Systolic Sitting 102 mmHg BP Diastolic Sitting 64 mmHg BMI (Body Mass Index) 34.8 kg/m2 12/14/2009 Height 60.5 inches 5'0.50" Weight 173.25 lb Heart Rate 76 /min BP Systolic 120 mmHg BP Diastolic 80 mmHg Body Temperature 98.8 F BMI (Body Mass Index) 33.3 kg/m2 Results Test Date Test Result H/L Range Note Urine Microalbumin Random 10/30/2017 Ur Microalbumin (mg/L) < 15.0 Urine Creatinine 61.40 mg/dL Urine Microalbumin/Creatinine TNP <31 1 Lipid Profile (Trig/Chol/HDL) 10/30/2017 Triglycerides 105 mg/dL 2 Cholesterol 189 mg/dL 3 HDL Cholesterol 65.9 mg/dL 4 LDL Cholesterol 102 mg/dL 5 Laboratory test finding 10/30/2017 Hemoglobin A1c (Glyco 6.1 % High 4.0- 5.6 6 HGB) Comp Metabolic Panel 10/30/2017 Sodium 138 mmol/L 135-145 Potassium 4.3 mmol/L 3.5-5.0 Chloride 102 mmol/L 101-111 Co2 Carbon Dioxide 31 mmol/L 22-32 Anion Gap 5 mmol/L 2-11 Glucose 97 mg/dL 70-100 Blood Urea Nitrogen 17 mg/dL 6-24 Creatinine 1.10 mg/dL High 0.51-0.95 BUN/Creatinine Ratio 15.5 8-20 Calcium 9.2 mg/dL 8.6-10.3 Total Protein 6.3 g/dL Low 6.4-8.9 Albumin 4.0 g/dL 3.2-5.2 Globulin 2.3 g/dL 2-4 Albumin/Globulin Ratio 1.7 1-3 Total Bilirubin 0.40 mg/dL 0.2-1.0 Alkaline Phosphatase 77 U/L 34-104 Alt 23 U/L 7-52 Ast 20 U/L 13-39 Egfr Non- 50.0 >60 Egfr 60.5 >60 7 Urinalysis Profile 05/30/2017 Urine Color Straw Urine Appearance Clear Urine Specific [place] 1.004 Low 1.010-1.030 Urine pH 7.0 5-9 Urine Urobilinogen Negative Negative Urine Ketones Negative Negative Urine Protein Negative Negative Urine Leukocytes Trace Negative Urine Blood 1+ Negative Urine Nitrite Negative Negative Urine Bilirubin Negative Negative Urine Glucose Negative Negative Urine White Blood Cell Trace(0-5/hpf) Absent Urine Red Blood Cell Absent Absent Urine Bacteria 1+ Absent Urine Squamous Epithelial Cell Present Absent Urine Culture And 05/30/2017 Urine Culture SEE RESULT BELOW 8 Sensitivities Rapid Influenza A & B 05/30/2017 Influenza A NEGATIVE Negative 9 Molecular Molecular Influenza B Molecular NEGATIVE Negative Comp Metabolic Panel 01/30/2017 Sodium 137 mmol/L 133-145 Chloride 104 mmol/L 101-111 Co2 Carbon Dioxide 28 mmol/L 22-32 Glucose 102 mg/dL High 70-100 Blood Urea Nitrogen 17 mg/dL 6-24 Creatinine 1.01 mg/dL High 0.51-0.95 BUN/Creatinine Ratio 16.8 8-20 Calcium 8.7 mg/dL 8.6-10.3 Total Protein 6.8 g/dL 6.4-8.9 Albumin 4.1 g/dL 3.2-5.2 Globulin 2.7 g/dL 2-4 Albumin/Globulin Ratio 1.5 1-3 Total Bilirubin 0.40 mg/dL 0.2-1.0 Alkaline Phosphatase 84 U/L 34-104 Alt 36 U/L 7-52 Egfr Non- 55.4 >60 Egfr 71.2 >60 10 Potassium 4.4 mmol/L 3.5-5.0 Anion Gap 5 mmol/L 2-11 Ast 26 U/L 13-39 Laboratory test finding 01/30/2017 Magnesium 2.2 mg/dL 1.9-2.7 TSH (Thyroid Stim Horm) 1.44 mcIU/mL 0.34-5.60 Laboratory test 01/04/2017 Hemoglobin A1c 6.0 5-7 finding Laboratory test 09/18/2016 Hemoglobin A1c (Glyco 6.1 % High Less than 6.0 11 finding HGB) Lipid Profile 09/18/2016 Triglycerides 110 mg/dL 12 (Trig/Chol/HDL) Cholesterol 226 mg/dL 13 HDL Cholesterol 73.6 mg/dL 14 LDL Cholesterol 130 mg/dL 15 Comp Metabolic Panel 09/18/2016 Sodium 139 mmol/L 133-145 Potassium 4.6 mmol/L 3.5-5.0 Chloride 103 mmol/L 101-111 Co2 Carbon Dioxide 31 mmol/L 22-32 Anion Gap 5 mmol/L 2-11 Glucose 106 mg/dL High 70-100 Blood Urea Nitrogen 14 mg/dL 6-24 Creatinine 1.19 mg/dL High 0.51-0.95 BUN/Creatinine Ratio 11.8 8-20 Calcium 9.2 mg/dL 8.6-10.3 Total Protein 6.8 g/dL 6.4-8.9 Albumin 4.2 g/dL 3.2-5.2 Globulin 2.6 g/dL 2-4 Albumin/Globulin Ratio 1.6 1-3 Total Bilirubin 0.30 mg/dL 0.2-1.0 Alkaline Phosphatase 83 U/L 34-104 Alt 16 U/L 7-52 Ast 15 U/L 13-39 Egfr Non- 45.8 >60 Egfr 58.9 >60 16 Laboratory test finding 08/04/2016 Surgical Pathology SEE RESULT BELOW 17 Laboratory test finding 08/04/2016 Point of Care 119 mg/dL High 74-106 18 Glucose Urine Microalbumin 04/13/2016 Urine Creatinine 123.55 mg/dL 19 Random Ur Microalbumin (mg/L) < 15.0 mg/L 19 Urine Microalbumin/Creatinine TNP ug/mg <31 19, 20 Laboratory test 03/29/2016 Surgical Interface SEE RESULT BELOW 21, 22 finding Order Laboratory test 12/27/2015 Hemoglobin A1c 6.1 5-7 finding Laboratory test 09/21/2015 Cytology SEE RESULT BELOW 23, 24 finding HPV Rna Ww/Reflex Genotype Negative Negative 23, 25 Lipid Profile (Trig/Chol/HDL) 06/23/2015 Triglycerides 114 mg/dL 26 Cholesterol 221 mg/dL 27 HDL Cholesterol 66.9 mg/dL 28 LDL Cholesterol 131 mg/dL 29 Comp Metabolic Panel 06/23/2015 Sodium 136 mmol/L 133-145 Potassium 3.8 mmol/L 3.5-5.0 Chloride 102 mmol/L 101-111 Co2 Carbon Dioxide 30 mmol/L 22-32 Anion Gap 4 mmol/L 2-11 Glucose 108 mg/dL High 70-100 Blood Urea Nitrogen 18 mg/dL 6-24 Creatinine 1.14 mg/dL High 0.51-0.95 BUN/Creatinine Ratio 15.8 8-20 Calcium 8.8 mg/dL 8.6-10.3 Total Protein 6.3 g/dL Low 6.4-8.9 Albumin 4.0 g/dL 3.2-5.2 Globulin 2.3 g/dL 2-4 Albumin/Globulin Ratio 1.7 1-3 Total Bilirubin 0.40 mg/dL 0.2-1.0 Alkaline Phosphatase 70 U/L 34-104 Alt 21 U/L 7-52 Ast 16 U/L 13-39 Egfr Non- 48.3 >60 Egfr 62.1 >60 30 Laboratory test 06/23/2015 Hemoglobin A1c (Glyco 5.9 % Less than 6.0 31 finding HGB) Urine Microalbumin 12/15/2014 Ur Microalbumin (mg/L) < 5.0 mg/L Random Urine Creatinine 36.85 mg/dL Urine Microalbumin/Creatinine TNP ug/mg <31 32 Laboratory test finding 12/15/2014 Hemoglobin A1c 5.8 5-7 Laboratory test finding 06/15/2014 Hemoglobin A1c 5.9 5-7 Lipid Profile (Trig/Chol/HDL) 12/02/2013 Triglycerides 83 mg/dL 33, 34 Cholesterol 219 mg/dL 33, 35 HDL Cholesterol 79.8 mg/dL 33, 36 LDL Cholesterol 123 mg/dL 33, 37 Laboratory test finding 12/02/2013 Hemoglobin A1c 6.0 % Less than 6.0 33 , 38 Comp Metabolic Panel 12/02/2013 Sodium 137 mmol/L 133-145 33 Potassium 4.2 mmol/L 3.7-5.6 33 Chloride 101 mmol/L 101-111 33 Co2 Carbon Dioxide 30 mmol/L 22-32 33 Anion Gap 6 mmol/L 2-11 33 Glucose 118 mg/dL High 70-100 33 Blood Urea Nitrogen 15 mg/dL 6-24 33 Creatinine 1.15 mg/dL High 0.51-0.95 33 BUN/Creatinine Ratio 13.0 8-20 33 Calcium 9.1 mg/dL 8.6-10.3 33 Total Protein 6.8 g/dL 6.4-8.9 33 Albumin 4.2 g/dL 3.2-5.2 33 Globulin 2.6 g/dL 2-4 33 Albumin/Globulin Ratio 1.6 1-3 33 Total Bilirubin 0.50 mg/dL 0.2-1.0 33 Alkaline Phosphatase 68 U/L 34-104 33 Alt 18 U/L 7-52 33 Ast 17 U/L 13-39 33 Egfr Non- 48.1 >60 33 Egfr 61.9 >60 33, 39 Urine Microalbumin Random 12/02/2013 Ur Microalbumin (mg/L) 12.0 mg/L 33 Urine Creatinine 127.55 mg/dL 33 Urine Microalbumin/Creatinine 9.4 Less Than 31 33 Laboratory test finding 07/14/2013 Hemoglobin A1c 5.8 5-7 Human Papilloma 12/02/2012 Human Papillomavirus Source See Comment 40 Human Papillomavirus High Risk Negative Negative 41 Laboratory test finding 11/29/2012 Cytology RUN DATE: SEE 42 NOTE> Lipid Profile 11/27/2012 Triglycerides 87 mg/dL 40-200 (Trig/Chol/HDL) Cholesterol 246 mg/dL High Less than 200 HDL Cholesterol 78 mg/dL High 40-60 43 Cholesterol/HDL Ratio 3.2 Average 1-4.44 LDL Cholesterol 150.6 High Less Than 100 44 Comp Metabolic Panel 11/27/2012 Sodium 138 mmol/L 133-145 Potassium 4.5 mmol/L 3.5-5.0 Chloride 103 mmol/L 101-111 Co2 Carbon Dioxide 31.0 mmol/L 22-32 Anion Gap 4.0 mmol/L 2-11 Glucose 117 mg/dL High 70-100 Blood Urea Nitrogen 9 mg/dL 6-24 Creatinine 1.00 mg/dL 0.50-1.40 BUN/Creatinine Ratio 9.0 8-20 Calcium 9.2 mg/dL 8.1-9.9 Total Protein 6.4 g/dL 6.2-8.1 Albumin 4.0 g/dL 3.6-5.4 Globulin 2.4 g/dL 2-4 Albumin/Globulin Ratio 1.7 1-3 Total Bilirubin 0.8 mg/dL 0.4-1.5 Alkaline Phosphatase 62 U/L 30-110 Alt 27 U/L 14-54 Ast 24 U/L 12-42 Egfr Non- 56.7 >60 Egfr 73.0 >60 45 Laboratory test 11/27/2012 Hemoglobin A1c 6.1 % High Less than 6.0 46 finding Urine Microalbumin 11/27/2012 Ur Microalbumin (mg/L) 8.0 mg/L 47 Random Urine Creatinine 172.5 mg/dL Urine Microalbumin/Creatinine 4.6 Less Than 31 Laboratory test finding 04/04/2012 Hemoglobin A1c 6.3 5-7 Laboratory test finding 10/03/2011 Hemoglobin A1c 6.0 5-7 PTH Intact, Inc Total Calcium 06/28/2011 PTH Intact 12.0 PMOL/L High 1.3- 9.3 Calcium For Pthi 10.8 mg/dL High 8.1-9.9 48 Laboratory test finding 06/28/2011 Hemoglobin A1c 6.6 % High Less Than 6.0 49 CBC Auto Diff 06/28/2011 White Blood Count 4.0 CUMM Low 4.8-10.8 Red Cell Count 4.71 CUMM 4.2-5.4 Hemoglobin 14.5 g/dL 12.0-16.0 Hematocrit 42 % 35-47 Mean Corpuscular Volume 89 um3 79-97 Mean Corpuscular Hemoglob 31 pg 27-31 Mean Corpuscular HGB Cone 35 g/dL 32-36 Redcell Distribution WDTH 14 % 10.5-15 Platelet Count 206 CUMM 150-450 Mean Platelet Volume 9.6 um3 7.4-10.4 Gran % 53.3 % 38-83 Lymph % 36.6 % 25-47 Mononuclear % 7.2 % 1-9 Eosinophil % 2.2 % 0-6 Basophil % 0.7 % 0-2 Abs Lymphs 1.4 1.0-4.8 Abs Mononuclear 0.3 0-0.8 Absolute Neutrophil Count 2.1 1.5-7.7 Abs Eosinophils 0.1 0-0.6 Abs Basophils 0 0-0.2 Laboratory test finding 03/02/2011 Troponin-I 0.01 NG/ML 0-0.06 50 CBC Auto Diff 03/02/2011 White Blood Count 3.6 CUMM Low 4.8-10.8 Red Cell Count 4.79 CUMM 4.2-5.4 Hemoglobin 14.5 g/dL 12.0-16.0 Hematocrit 42 % 35-47 Mean Corpuscular Volume 88 um3 79-97 Mean Corpuscular Hemoglob 30 pg 27-31 Mean Corpuscular HGB Cone 35 g/dL 32-36 Redcell Distribution WDTH 14 % 10.5-15 Platelet Count 209 CUMM 150-450 Mean Platelet Volume 9.1 um3 7.4-10.4 Gran % 51.7 % 38-83 Lymph % 36.7 % 25-47 Mononuclear % 8.2 % 1-9 Eosinophil % 2.9 % 0-6 Basophil % 0.5 % 0-2 Abs Lymphs 1.3 1.0-4.8 Abs Mononuclear 0.3 0-0.8 Absolute Neutrophil Count 1.9 1.5-7.7 Abs Eosinophils 0.1 0-0.6 Abs Basophils 0 0-0.2 Comp Metabolic Panel 03/02/2011 Sodium 136 mmol/L 135-145 Potassium 4.0 mmol/L 3.5-5.0 Chloride 103 mmol/L 101-111 Co2 (Carbon Dioxide) 28.0 mmol/L 22-32 Anion Gap 5.0 mmol/L 2-11 51 Glucose 96 mg/dL 70-100 BUN 11 mg/dL 6-24 Creatinine 0.8 mg/dL 0.50-1.40 One Over Creatinine 1.25 BUN/Creatinine Ratio 13.8 8-20 Calcium 10.3 mg/dL High 8.1-9.9 Total Protein 7.0 GM/DL 6.2-8.1 Albumin 3.8 GM/DL 3.6-5.4 Globulin 3.2 GM/DL 2-4 Albumin/Globulin Ratio 1.2 1-3 Bilirubin Total 0.6 mg/dL 0.4-1.5 52 Alkaline Phosphatase 99 U/L 30-110 Alt (SGPT) 44 U/L 14-54 Ast (Sgot) 27 U/L 12-42 eGFR Non- 73.9 > 60 eGFR 95.1 > 60 53 Laboratory test finding 03/02/2011 Troponin-I 0.01 NG/ML 0-0.06 54 PTH Intact, Inc Total Calcium 03/07/2010 PTH Intact 9.5 PMOL/L High 1.3- 9.3 Calcium For Pthi 10.8 mg/dL High 8.1-9.9 55 Laboratory test finding 03/07/2010 Calcium Ionized 5.64 mg/dL High 4.65- 5.28 Rheumatoid Factor < 20.0 IU/mL Less Than 20 C Reactive Protein 0.7 mg/dL High Less Than 0.5 Erythrocyte Sed Rate 8 MM/HR 0-30 Cytology 12/14/2009 Cytology <SEE NOTE> 56 Comp Metabolic Panel 12/10/2009 Sodium 141 mmol/L 135-145 Potassium 4.3 mmol/L 3.5-5.0 Chloride 106 mmol/L 101-111 Co2 (Carbon Dioxide) 30.0 mmol/L 22-32 Anion Gap 5.0 mmol/L 2-11 57 Glucose 96 mg/dL 70-100 58 BUN 12 mg/dL 6-24 Creatinine 0.90 mg/dL 0.50-1.40 One Over Creatinine 1.10 BUN/Creatinine Ratio 13.3 8-20 Calcium 10.6 mg/dL High 8.1-9.9 Total Protein 6.8 GM/DL 6.2-8.1 Albumin 4.3 GM/DL 3.6-5.4 Globulin 2.5 GM/DL 2-4 Albumin/Globulin Ratio 1.7 1-3 Bilirubin Total 1.0 mg/dL 0.4-1.5 59 Alkaline Phosphatase 86 U/L 30-110 Alt (SGPT) 24 U/L 14-54 Ast (Sgot) 22 U/L 12-42 eGFR Non- 68.8 > 60 eGFR 83.3 > 60 60 Lipid Profile (Trig/Chol/HDL) 12/10/2009 Triglyceride 88 mg/dL 40-200 Cholesterol 219 mg/dL High Less Than 200 61 High Density Lipoprotein 67 mg/dL High 40-60 62 Cholesterol/HDL Ratio 3.27 AVERAGE 1-4.44 Low Density Lipoprotein 134 mg/dL High Less Than 100 63 1 Unable to calculate due to low microalbumin 2 Desirable: <150 Borderline High: 150-199 High: 200-499 Very High: >500 3 Desirable: <200 Borderline High: 200-239 High: >239 4 Low: <40 Desirable: 40-60 High: >60 5 Desirable: <100 Near Optimal: 100-129 Borderline High: 130-159 High: 160-189 Very High: >189 6 Therapeutic target for the treatment of diabetes mellitus patients is <7% HBA1C, and in selective patients <6.0%. Please refer to [place] [employer] Association diabetic care guidelines for further information. 7 Because ethnic data is not always readily available, this report includes an eGFR for both -Americans and non- Americans. The National Kidney Disease Education Program (NKDEP) does not endorse the use of the MDRD equation for patients that are not between the ages of 18 and 70, are , have extremes of body size, muscle mass, or nutritional status, or are non- or non-. According to the National Kidney Foundation, irrespective of diagnosis, the stage of the disease is based on the level of kidney function: Stage Description GFR(mL/min/1.73 m(2)) 1 Kidney damage with normal or decreased GFR 90 2 Kidney damage with mild decrease in GFR 60-89 3 Moderate decrease in GFR 30-59 4 Severe decrease in GFR 15-29 5 Kidney failure <15 (or dialysis) 8 SEE RESULT BELOW Name: HANNAH TRUONG : [address]: Arturo Barragan MD Acct: [id number] Unit: [id number] AGE: 62 Location: ED Re05/30/17 SEX: F Status: DEP ER SPEC: [id number] ALONZO: 05/30/[address]: Lynn SINGH REQ: [id number] RECD: 05/30/17 STATUS: ANISHA CARPENTER DR: Glendy Barragan MD _ SOURCE: URINE SPDESC: ORDERED: Urine Culture Procedure Result Reported Site Urine Culture Final 05/31/17- 1726 ML No growth of clinically significant organisms * ML - Main Lab . END OF REPORT DEPARTMENT OF PATHOLOGY, [address] [place] [address] Db Biswas M.D. Director [facility] # [id number] 9 Math And Science Instructor: [id number] 10 Because ethnic data is not always readily available, this report includes an eGFR for both -Americans and non- Americans. The National Kidney Disease Education Program (NKDEP) does not endorse the use of the MDRD equation for patients that are not between the ages of 18 and 70, are , have extremes of body size, muscle mass, or nutritional status, or are non- or non-. According to the National Kidney Foundation, irrespective of diagnosis, the stage of the disease is based on the level of kidney function: Stage Description GFR(mL/min/1.73 m(2)) 1 Kidney damage with normal or decreased GFR 90 2 Kidney damage with mild decrease in GFR 60-89 3 Moderate decrease in GFR 30-59 4 Severe decrease in GFR 15-29 5 Kidney failure <15 (or dialysis) 11 Therapeutic target for the treatment of diabetes Mellitus patients is <7% HBA1C, and in selective patients <6.0%.Please refer to [place] [employer] Association Diabetic care guidelines for further information. 12 Desirable <150 Borderline high 150-199 High 200-499 Very High >500 13 Desirable <200 Borderline high 200-239 High >239 14 Low <40 Desirable: 40-60 High: >60 15 Desirable: <100 mg/dL Near Optimal: 100-129 mg/dL Borderline High: 130-159 mg/dL High: 160-189 mg/dL Very High: >189 mg/dL 16 Because ethnic data is not always readily available, this report includes an eGFR for both -Americans and non- Americans. The National Kidney Disease Education Program (NKDEP) does not endorse the use of the MDRD equation for patients that are not between the ages of 18 and 70, are , have extremes of body size, muscle mass, or nutritional status, or are non- or non-. According to the National Kidney Foundation, irrespective of diagnosis, the stage of the disease is based on the level of kidney function: Stage Description GFR(mL/min/1.73 m(2)) 1 Kidney damage with normal or decreased GFR 90 2 Kidney damage with mild decrease in GFR 60-89 3 Moderate decrease in GFR 30-59 4 Severe decrease in GFR 15-29 5 Kidney failure <15 (or dialysis) 17 SEE RESULT BELOW Name: HANNAH TRUONG : [address]: Robbie Napeir MD Acct: [id number] Unit: [id number] AGE: 61 Location: OR Re08/04/16 SEX: F Status: REG [facility] SPEC: [id number] ALONZO: 08/04/16-[address]: Robbie Napier MD REQ: [id number] RECD: 08/04/16570 STATUS: SOUT _ ORDERED: LEVEL 1 FINAL DIAGNOSIS Site unspecified, hardware removal: Foreign body (orthopedic hardware) (Gross diagnosis). PRE-OPERATIVE DIAGNOSIS Retained hardware GROSS DESCRIPTION The specimen is received in formalin labeled, Retained Hardware, and consists of a 5.1 x 0.6-0.3 cm fully threaded silver metallic Michel headed screw. No inscription is identified. Per established hospital medical staff protocol, no tissue is submitted. Gross only. Signed (signature on file) Db Biswas MD 1525 END OF REPORT * ML=Testing performed at Main Lab DEPARTMENT OF PATHOLOGY, [address] [place] [address] Db Biswas M.D. Director [facility] # [id number] Math And Science Instructor: [id number] 20 Unable to calculate due to low microalbumin 21 [id number] 22 SEE RESULT BELOW Name: HANNAH TRUONG : [address]: Steven Ayala MD Acct: [id number] Unit: [id number] AGE: 60 Location: [facility] Re03/29/16 SEX: F Status: DEP REF SPEC: [id number] ALONZO: 03/29/16 [facility] DR: Steven Ayala MD REQ: [id number] RECD: 03/29/16 STATUS: GRAEME CARPENTER DR: Glendy Borrero MD _ ORDERED: LEVEL IV COMMENTS: [id number] FINAL DIAGNOSIS Colon, sigmoid, biopsy: -- Hyperplastic polyp. CLINICAL HISTORY Diagnosis of mild hypertension in December, dizzy on exertion POST-OPERATIVE DIAGNOSIS Narrow twisty but cecum reached - all normal except tics and 1 approximately 4-5 cm patch at 25. Conclusions/Plan: Sigmoid diverticulosis left much greater than right, sigmoid nodule GROSS DESCRIPTION The specimen is received in formalin labeled, Sigmoid Colon Nodule, and consists of three speckled brannon-brown irregular to polypoid soft tissue fragments measuring 0.2 x 0.2 x 0.1 cm, 0.3 x 0.3 x 0.2 cm and 0.4 x 0.3 x 0.3 cm, which are entirely submitted in one cassette. Signed (signature on file) Lynn Gonzáles MD 04/14 1153 END OF REPORT * ML=Testing performed at Main Lab DEPARTMENT OF PATHOLOGY, [address] [place] [address] Db Biswas M.D. Director [facility] # [id number] 23 [id number] SEE RESULT BELOW Name: HANNAH TRUONG : [address]: Glendy Borrero MD Acct: [id number] Unit: [id number] AGE: 60 Location: [facility] Re09/21/15 SEX: F Status: REG REF SPEC: [id number] ALONZO: 09/21/[address]: Glendy Borrero MD REQ: [id number] RECD: 09/21/15 STATUS: SOUT _ ORDERED: IMAGE ANALYSIS, HPV/Thin Prep, HPV 16/18 GENE COMMENTS: [id number] FINAL DIAGNOSIS Negative for Intraepithelial lesion or Malignancy A. Ectocervical/Endocervical Specimen Adequacy: Satisfactory of evaluation Transformation zone component identified Patient Information: HPV: High risk HPV RNA testing regardless of pap results. HPV 16/18 Genotype Reflex Actual Specimen Date: 09/21/15 LMP If Unknown: about 8 yrs ago Spec Date if unknown: 2012 ?: N Post Menopausal?: Y Hysterectomy?: N Date Time Test Result Flag (u) Normal Range 09/21/151640 HPV RNA RFLX GE Negative Negative The high-risk HPV types detected by the assay include: 16, 18, 31, 33, 35, 39, 45, 51, 52, 56, 58, 59, 66, and 68. Signed (signature on file) TALA Castaneda ([facility]) 09/21 1419 This Pap test was evaluated with the assistance of the [employer] Test Imaging System. Due to cytologic findings at the senior compensation analyst microscope, comprehensive manual rescreening by a Supervisor Phosphorus Processing may be required. The Pap Smear is a screening test designed to aid in the detection of premalignant and malignant conditions of the uterine cervix. It is not a diagnostic procedure and should not be used as the sole means of detecting cervical cancer. Both false- positive and false- negative reports do occur. Depending on your risk status, a Pap smear should be obtained and evaluated every 1-3 years. END OF REPORT * ML=Testing performed at Main Lab DEPARTMENT OF PATHOLOGY, [address] [place] [address] Db Biswas M.D. Director [facility] # [id number] RUN DATE: 09/22/15 [facility] LAB LIVE PAGE 1 Patient: HANNAH TRUONG [id number] (Continued) 25 The high-risk HPV types detected by the assay include: 16, 18, 31, 33, 35, 39, 45, 51, 52, 56, 58, 59, 66, and 68. 26 Desirable <150 Borderline high 150-199 High 200-499 Very High >500 27 Desirable <200 Borderline high 200-239 High >239 28 Low <40 Desirable: 40-60 High: >60 29 Desirable: <100 mg/dL Near Optimal: 100-129 mg/dL Borderline High: 130-159 mg/dL High: 160-189 mg/dL Very High: >189 mg/dL 30 Because ethnic data is not always readily available, this report includes an eGFR for both -Americans and non- Americans. The National Kidney Disease Education Program (NKDEP) does not endorse the use of the MDRD equation for patients that are not between the ages of 18 and 70, are , have extremes of body size, muscle mass, or nutritional status, or are non- or non-. According to the National Kidney Foundation, irrespective of diagnosis, the stage of the disease is based on the level of kidney function: Stage Description GFR(mL/min/1.73 m(2)) 1 Kidney damage with normal or decreased GFR 90 2 Kidney damage with mild decrease in GFR 60-89 3 Moderate decrease in GFR 30-59 4 Severe decrease in GFR 15-29 5 Kidney failure <15 (or dialysis) 31 Therapeutic target for the treatment of diabetes Mellitus patients is <7% HBA1C, and in selective patients <6.0%.Please refer to [place] Diabetes Association Diabetic care guidelines for further information. 32 Unable to calculate due to low microalbumin 33 FASTING~DUE IN 34 Desirable <150 Borderline high 150-199 High 200-499 Very High >500 35 Desirable <200 Borderline high 200-239 High >239 36 Low <40 Desirable: 40-60 High: >60 37 Desirable <100 Near Optimal 100-129 Borderline high 130-159 High 160-189 Very High >189 38 Therapeutic target for the treatment of diabetes Mellitus patients is <7% HBA1C, and in selective patients <6.0%.Please refer to [place] [employer] Diabetic care guidelines for further information. 39 Because ethnic data is not always readily available, this report includes an eGFR for both -Americans and non- Americans. The National Kidney Disease Education Program (NKDEP) does not endorse the use of the MDRD equation for patients that are not between the ages of 18 and 70, are , have extremes of body size, muscle mass, or nutritional status, or are non- or non-. According to the National Kidney Foundation, irrespective of diagnosis, the stage of the disease is based on the level of kidney function: Stage Description GFR(mL/min/1.73 m(2)) 1 Kidney damage with normal or decreased GFR 90 2 Kidney damage with mild decrease in GFR 60-89 3 Moderate decrease in GFR 30-59 4 Severe decrease in GFR 15-29 5 Kidney failure <15 (or dialysis) 40 RESULT: Ectocervical/Endocervical 41 For types 16, 18, 31, 33, 35, 39, 45, 51, 52, 56, 58, 59 and 68. Test Performed by: [facility] [address] [address] Cellophane Worker: Ruel Andre III, M.D. 42 RUN DATE: 12/02/12 [facility] LAB LIVE PAGE 1 RUN TIME: [address] [place] [address] Specimen Inquiry Name: HANNAH TRUONG : [address]: Glendy Borrero MD Acct: [id number] Unit: [id number] AGE: 57 Location: [facility] Re11/29/12 SEX: F Status: REG REF SPEC: [id number] ALONZO: 11/29/12-[address]: Glendy Borrero MD REQ: [id number] RECD: 11/29/12 STATUS: SOUT _ ORDERED: IMAGE ANALYSIS, HPV/Thin Prep FINAL DIAGNOSIS Negative for Intraepithelial lesion or Malignancy COMMENTS: Specimen sent to [facility] in [place], [place] on 12/02/12 by [id number] at 1426. Results will be reported separately. A. Ectocervical/Endocervical Specimen Adequacy: Satisfactory of evaluation Transformation zone component cannot be definitely identified due to presence of atrophy or other hormonal changes Patient Information: HPV: High risk HPV DNA testing regardless of pap results. Actual Specimen Date: 11/29/12 LMP If Unknown: 1-2 yrs ago IUD: N ?: N Signed (signature on file) TALA Fox ([facility]) 12/02/12 6435 This Pap test was evaluated with the assistance of the ThinPrep Test Imaging System. Due to cytologic findings at the senior compensation analyst microscope, comprehensive manual rescreening by a Supervisor Phosphorus Processing may be required. The Pap Smear is a screening test designed to aid in the detection of premalignant and malignant conditions of the uterine cervix. It is not a diagnostic procedure and should not be used as the sole means of detecting cervical cancer. Both false- positive and false- negative reports do occur. Depending on your risk status, a Pap smear shoudl be obtained and evaluated every 1-3 years. END OF REPORT * ML=Testing performed at Main Lab DEPARTMENT OF PATHOLOGY, [address] [place] [address] Db Biswas M.D. Director [facility] Permit #[id number] HDL Interpretation: Undesirable: High Risk: Less than 40 mg/dL Desirable: Low Risk: Greater than 60 mg/dL 44 LDL Interpretation: Low Risk Optimal Level: LDL Less than 100 mg/dL Near or Above Optimal: LDL 100-129 mg/dL Borderline High Risk: LDL 130-159 mg/dL High Risk: LDL 160-189 mg/dL Very High Risk: LDL Greater than 189 mg/dL 45 Because ethnic data is not always readily available, this report includes an eGFR for both -Americans and non- Americans. The National Kidney Disease Education Program (NKDEP) does not endorse the use of the MDRD equation for patients that are not between the ages of 18 and 70, are , have extremes of body size, muscle mass, or nutritional status, or are non- or non-. According to the National Kidney Foundation, irrespective of diagnosis, the stage of the disease is based on the level of kidney function: Stage Description GFR(mL/min/1.73 m(2)) 1 Kidney damage with normal or decreased GFR 90 2 Kidney damage with mild decrease in GFR 60-89 3 Moderate decrease in GFR 30-59 4 Severe decrease in GFR 15-29 5 Kidney failure <15 (or dialysis) 46 Therapeutic target for the treatment of diabetes Mellitus patients is <7% HBA1C, and in selective patients <6.0%.Please refer to [place] [employer] Association Diabetic care guidelines for further information. 47 Microalbuminuria in a random sample is defined as: Microalbumin/Creatinine ratio of 30-299 ug/mg. 48 Please note change in reference range effective 08 . 49 THERAPEUTIC TARGET FOR THE TREATMENT OF DIABETES MELLITUS PATIENTS IS <7% HBA1C, AND IN SELECTIVE PATIENTS <6.0%. PLEASE REFER TO [place] [employer]OC[employer]ATION DIABETIC CARE GUIDELINES FOR FURTHER INFORMATION. 50 New Reference Range and Interpretation effective 11/29/2001 TnI (ng/ml) INTERPRETATION Less Than 0.06 ng/mL NOT SUPPORTIVE OF DIAGNOSIS OF [place] 0.06 - 0.50 ng/ml INDETERMINATE: SUGGEST SERIAL STUDIES IF CLINICALLY INDICATED. Greater than 0.5 ng/mL CONSISTENT WITH DIAGNOSIS OF [place] . 51 Anion gap measurement may be of limited value in the presence of any alkalosis, especially in a combined acid base disorder. . 52 A metabolite of Naproxen, O-desmethylnaproxen, has been shown to interfere with the Jendrassik-Ananth method for measuring total bilirubin. Samples from patients who have taken Naproxen have shown spurious elevation in total bilirubin levels. 53 Because ethnic data is not always readily available, this report includes an eGFR for both -Americans and non- Americans. The National Kidney Disease Education Program (NKDEP) does not endorse the use of the MDRD equation for patients that are not between the ages of 18 and 70, are , have extremes of body size, muscle mass, or nutritional status, or are non- or non-. According to the National Kidney Foundation, irrespective of diagnosis, the stage of the disease is based on the level of kidney function: Stage Description GFR(mL/min/1.73 m(2)) 1 Kidney damage with normal or decreased GFR 90 2 Kidney damage with mild decrease in GFR 60-89 3 Moderate decrease in GFR 30-59 4 Severe decrease in GFR 15-29 5 Kidney failure <15 (or dialysis) 54 New Reference Range and Interpretation effective 11/29/2001 TnI (ng/ml) INTERPRETATION Less Than 0.06 ng/mL NOT SUPPORTIVE OF DIAGNOSIS OF [place] 0.06 - 0.50 ng/ml INDETERMINATE: SUGGEST SERIAL STUDIES IF CLINICALLY INDICATED. Greater than 0.5 ng/mL CONSISTENT WITH DIAGNOSIS OF [place] . 55 Please note change in reference range effective 08 . 56 ---- RUN DATE: 12/15/09 [facility] NMI LIVE PAGE 1 RUN TIME: 1506 Specimen Inquiry RUN USER: INTERFACE -- Name: HANNAH TRUONG Status: REG REF Re12/14/09 Age/Sex: 54/F Unit#: [id number] Location: [facility]. : [birth year] -- Specimen: [id number] SOUT Spec Date: 12/14/[address]: Glendy Borrero MD Spec Type: CYTOLOGY Received: 12/15/09-1340 Copies to: SOURCE ECTOCERVICAL/ENDOCERVICAL Thin Prep with Reflex HPV Test PATIENT INFORMATION ACTUAL COLLECTION DATE: 12/14/09 ? No POST MENOPAUSAL? Yes HYSTERECTOMY? No PREVIOUS ABNORMAL PAP SMEARS No PATIENT HISTORY: Last menstrual period 2008 ADEQUACY OF SPECIMEN Satisfactory for evaluation * Transformation zone component identified * DIAGNOSIS NEGATIVE FOR INTRAEPITHELIAL LESION OR MALIGNANCY * This Pap test was evaluated with the assistance of the [employer] Pap Test Imaging System. The Pap Smear is a screening test designed to aid in the detection of premalign ant and malignant conditions of the uterine cervix. It is not a diagnostic procedure a nd should not be used as the sole means of detecting cervical cancer. Both false- positiv e and false-negative reports do occur. Depending on your risk status, a Pap smear alise uld be obtained and evaluated every one to three years. Initial evaluation performed by Derrick SWIFT([facility]) 12/15/09 Final Interpretation electronically signed by: Derrick SWIFT([facility]) 12/15/09 1505 -- -- DEPARTMENT OF PATHOLOGY, [address] [place] [address] [facility] Permit #[id number] Db Biswas M.D. Director Marco Antonio Diaz M.D. Software Quality Tester Dir michael -- 57 Anion gap measurement may be of limited value in the presence of any alkalosis, especially in a combined acid base disorder. . 58 Note change in reference range as of 10/17/07. The change was based on recommendations from the [place] [employer]. 59 A metabolite of Naproxen, O-desmethylnaproxen, has been shown to interfere with the Jendrassik-[place] method for measuring total bilirubin. Samples from patients who have taken Naproxen have shown spurious elevation in total bilirubin levels. 60 Because ethnic data is not always readily available, this report includes an eGFR for both -Americans and non- Americans. The National Kidney Disease Education Program (NKDEP) does not endorse the use of the MDRD equation for patients that are not between the ages of 18 and 70, are , have extremes of body size, muscle mass, or nutritional status, or are non- or non-. According to the National Kidney Foundation, irrespective of diagnosis, the stage of the disease is based on the level of kidney function: Stage Description GFR(mL/min/1.73 m(2)) 1 Kidney damage with normal or decreased GFR 90 2 Kidney damage with mild decrease in GFR 60-89 3 Moderate decrease in GFR 30-59 4 Severe decrease in GFR 15-29 5 Kidney failure <15 (or dialysis) 61 CHOLESTEROL INTERPRETATION: Desirable: Less than 200 MG/DL Borderline-High Risk: 200-239 MG/DL High-Risk: 240 MG/DL and over 62 HDL INTERPRETATION: Undesirable: High Risk: Less than 40 MG/DL Desirable: Low Risk: Greater than 60 MG/DL 63 LDL INTERPRETATION: Low Risk Optimal Level: LDL Less than 100 MG/DL Near or Above Optimal: LDL 100-129 MG/DL Borderline High Risk: LDL 130-159 MG/DL High Risk: LDL 160-189 MG/DL Very High Risk: LDL Greater than 189 MG/DL Procedures Date CPT Code Description Status 11/08/2017 47638 Inject/Drain Joint/Bursa Major W/O US Completed 09/20/2017 Diabetic Retinal Eye Exam Completed 07/18/2017 97670 Polysomnography Sleep Staging 4+ Parameters Completed 03/07/2017 17088 Cardiac Event Monitor Completed 02/21/2017 84979 Stress Test Completed 02/16/2017 70334 Mobile Cardiovascular Telemetry Over 24 HR Up To 30 Completed Days 02/01/2017 38420 EKG Tracing & Interpretation Completed 01/31/2017 Mammogram Completed 01/15/2017 66791 Holter Monitor Review (24 hr)dr review & interp only Completed 01/09/2017 50684 ECHO Transthoracic, Real-Time 2D With Doppler And Color Completed Flow 01/09/2017 61755 ECG Monitor/Recording W/Visual Superimposition Scanning Completed 01/04/2017 24865 EKG Tracing & Interpretation Completed 08/04/2016 04817 Removal Implant Deep Wire,Screw Nail,Nilay Or Plate Completed 08/04/2016 54469 Removal Implant Deep Wire,Screw Nail,Nilay Or Plate Completed 04/28/2016 13535 ORIF Trimalleolar Ankle FX Medial And/Or Lateral Completed Malleolus 04/28/2016 05529 EKG, Interpretation Only Completed 04/28/2016 72102 Open TX Of Distaltibiofibular JT Disruption W Or W/O Completed Fixation 04/28/2016 43530 ORIF Trimalleolar Ankle FX Medial And/Or Lateral Completed Malleolus 04/28/2016 14427 Open TX Of Distaltibiofibular JT Disruption W Or W/O Completed Fixation 03/29/2016 Colonoscopy Completed 01/18/2016 68328 ECHO Transthoracic, Real-Time 2D With Doppler And Color Completed Flow 04/23/2015 Diabetic Retinal Eye Exam Completed 12/28/2014 Mammogram Completed 06/17/2013 Diabetic Retinal Eye Exam Completed 01/13/2013 Mammogram Completed 12/05/2012 53636 Xray Knee 3 Views Completed 12/05/2012 35733 Xray Knee 3 Views Completed 02/23/2012 06784 Inhalation TX For Acute Airway Obstruction Completed W/Nebulizer/Inhaler 03/01/2011 35844 ECHO Stress Test Incl Perf Contiuous ekg Monitoring Completed W/Phys Superv 02/24/2011 60665 Noninvasive Ear Or Pulse Oximetry For Oxygen Saturation Completed 02/24/2011 37952 EKG Tracing & Interpretation Completed 01/08/2010 Colonoscopy Completed 12/27/2009 Bone Mineral Density Test Completed 12/27/2009 Mammogram Completed 12/17/2006 07784 EKG Tracing & Interpretation Completed 12/17/2006 69022 EKG Tracing & Interpretation Completed 10/02/2006 Mammogram Completed Encounters Type Date Location Provider CPT E/M Dx Office Visit 11/05/2017 [facility] Internal Medicine Glendy Borrero, 19015 E11.9 2:40p - Safia Nguyen M25.569 R19.5 Office Visit 10/04/2017 1:00p [facility]bie Napier, 19197 M17.0 Won LOWE M25.561 M25.562 Office Visit 09/24/2017 11:00a [facility] Britney Sandhu, 09042 G47.33 Services Of [facility] JOHN, RN, [facility]- Z68.35 Office Visit 06/07/2017 2:30p [facility] [address] R06.83 Services Of [facility] G47.33 Z87.891 E66.09 Z68.34 Office Visit 05/31/2017 11:40a [facility] Internal Medicine Glendy Borrero 92059 R11.10 - Safia Nguyen Office Visit 02/01/2017 3:00p [facility] [place] [address] R00.2 [facility] FACC E11.9 G47.33 R00.0 F17.201 Office Visit 01/04/2017 4:20p [facility] Internal Medicine Glendy Borrero 44757 Z00.00 - Safia Nguyen I10 E11.9 Z12.31 R00.2 I27.20 G47.33 Z23 Office Visit 05/02/2016 9:35a [facility], 20429 R73.03 Hospitalists Patrick I10 S82.892A Office Visit 05/01/2016 9:35a [facility], [address]2210 S82.892A Assoc, Hospitalists Patrick R73.03 I10 Office Visit 04/30/2016 9:34a [facility], 00955 S82.892A Assoc, Hospitalists Patrick R73.03 I10 Office Visit 04/29/2016 9:33a [facility], 35731 S82.892A Assoc, Hospitalists Patrick R73.03 I10 Office Visit 04/28/2016 1:51p [facility] Chan Salcido, [address] S82.852A Of Won Nguyen S93.05xA Office Visit 04/28/2016 9:33a [facility] Tc Devries, 98917 S82.892A [facility] R73.03 I10 Office Visit 04/27/2016 9:31a [facility] Artur Mariee OSEI, 69728 R73.03 [facility]oc[facility] Hospitalists Patrick S82.892A I10 Office Visit 04/13/2016 2:20p [facility] Glendy Borrero 66338 E11.9 - Safia Nguyen I27.2 H61.21 Office Visit 12/27/2015 2:00p [facility] Glendy Borrero 79213 E11.9 - Safia Nguyen R42 Z12.11 Z23 Office Visit 12/15/2014 1:20p [facility] Glendy Borrero 87644 E11.9 - Safia Nguyen K58.0 Z12.31 R21 Z12.11 Z23 Office Visit 12/05/2013 2:40p [facility] Glendy Borrero 72968 250.00 - Safia Nguyen 782.1 v04.81 272.2 Office Visit 07/14/2013 1:20p [facility] Glendy Borrero 18152 250.00 - Safia Nguyen Office Visit 12/05/2012 10:00a [facility] Zuhair Hall M.D. 63733 717.7 Of Won Office Visit 11/29/2012 3:20p [facility] Glendy Borrero 84492 V70.0 - Safia Nguyen 250.00 v04.81 V76.10 V76.2 Office Visit 04/04/2012 11:00a [facility] Glendy Borrero 50071 250.00 - Safia Nguyen V76.10 311 Office Visit 02/23/2012 12:40p [facility] Susanna Berry M.D. 70507 493.90 - [place] Office Visit 01/11/2012 10:00a [facility] Marie TerryP. 90677 782.1 - [place] Office Visit 10/03/2011 2:40p [facility] Glendy Cotton, 34180 V72.31 - [place] M.D. V70.0 V72.31 250.00 252.00 V76.10 V03.82 Office Visit 07/04/2011 4:00p [facility] Glendy Cotton, 59870 250.00 - [place] M.D. 252.00 Office Visit 05/22/2011 8:40a [facility] Glendy Cotton, 42137 252.00 - [place] M.D. 493.90 Office Visit 03/27/2011 2:40p [facility] Glendy Cotton, 15183 786.09 - [place] M.D. 790.21 252.00 288.00 Office Visit 02/24/2011 3:40p DO Not Use Glendy Cotton, 50148 252.00 [facility] M.D. 380.4 786.09 790.21 780.51 V04.81 Office Visit 12/23/2010 11:20a DO Not Use Glendy Cotton, 11578 564.1 [facility] M.D. Office Visit 12/14/2009 2:45p DO Not Use Glendy Cotton, 30151 V70.0 [facility] M.D. V72.31 782.1 789.09 275.42 Office Visit 02/23/2009 11:30a DO Not Use [facility] Raeann Zuñiga, 48453 920 M.DShayy 847.0 Office Visit 05/12/2008 4:00p DO Not Use Betsey Varn, 38709 701.1 [facility] N.P. Office Visit 05/11/2008 1:45p DO Not Use Tere Salcedo M.D., 02629 782.1 [facility] FACP Office Visit 04/27/2008 10:15a DO Not Use Betsey Jvn, 14998 133.0 [facility] N.P. Office Visit 04/24/2008 1:30p DO Not Use Betsey Varn, 06863 133.0 [facility] N.P. Office Visit 09/30/2007 1:30p DO Not Use Radomski Raeann, 17805 716.94 [facility] M.D. 401.1 Office Visit 06/24/2007 11:15a DO Not Use Radomski, Raeann, 24162 719.40 [facility] M.D. 723.1 724.2 401.1 Office Visit 12/17/2006 1:45p DO Not Use RadomsMarvin caponea, 10238 V72.31 [facility] M.D. 401.1 V04.81 Office Visit 10/17/2006 4:15p DO Not Use Radomski Raeann, 53558 380.10 [facility] M.D. Office Visit 10/15/2006 3:00p DO Not Use RadomsMarvin caponea, 41151 380.10 [facility] M.D. Office Visit 10/12/2006 3:30p DO Not Use Betsey Vee, 32997 380.10 [facility] N.P. Office Visit 08/30/2006 3:30p DO Not Use Radomsliborio Raeann, 56614 298.9 [facility] M.D. 401.1 733.90 Office Visit 12/18/2005 8:30a DO Not Use Radomsliborio Raeann, 66637 722.52 [facility] M.D. 724.2 Office Visit 11/13/2005 4:00p DO Not Use Radomsliborio Raeann, 40241 724.2 [facility] M.D. 724.4 Plan of Care Future Appointment(s):02/05/2018 11:15 am - Britney Sandhu DNP, RN, LEATHER CASE FINISHER- at [facility]05/06/2018 11:00 am - Glendy Borrero M.D. at [facility] - Dupnduakd22/26/2018 1:15 pm - Robbie Napier MD at [facility]11/08/2017 - Robbie Napier, MDM25.562 Pain in left kneeFollow up:Follow up: as gspnendveE76.12 Unilateral primary osteoarthritis, left knee
--- OUTSIDE RECORDS SUMMARY | 2017-11-10 11:15 | XMS REPORT ---
:1955 External Reference #:[id number] Author Organization [facility] Address [address] [place] [address] [place] [address] Phone [phone] Care Team Providers Name Role Phone Glendy Borrero MD Primary Care Physician Unavailable Payers Type Date Identification Numbers Payment Provider Subscriber Medicare Primary Policy Number: [id number] Medicare Meghan Parramary ellen PayID: [id number] [address] [place] [address] [facility] Part B Policy Number: [id number] [facility] Meghan Turong PayID: [id number] [address] [place] [address] Problems Date Description Provider Status Onset: 03/09/2010 Depressive disorder Glendy Borrero M.D. Active Onset: 07/04/2011 Type 2 diabetes mellitus Glendy Borrero M.D. Active Onset: 03/09/2010 Benign essential hypertension Glendy Borrero M.D. Active Onset: 03/09/2010 Hyperparathyroidism Glendy Borrero M.D. Active Onset: 09/24/2017 Obstructive sleep apnea syndrome Britney Sandhu DNP, RN, Active MANAGER OF TRANSPORTATION-BC Onset: 09/24/2017 Body mass index 30+ - obesity Britney Sandhu DNP, RN, Active MANAGER OF TRANSPORTATION-BC Family History Date Family Member(s) Problem(s) Comments General Paternal Uncle from COPD : (age 88 Father due to Heart Probably [place] - sudden Years) Disease Siblings 3 2 [...] digestive upset active Mild to Moderate 02/01/2017 [place] digestive upset active Mild to Moderate 12/10/2009 [...] hours as needed Nystop 12/05 Hx Powder [id number] 60gm apply 782.1 t/GM twice Cotton, - [...] and 2 tabs by mouth every night Immunizations CPT Code Status Date Vaccine Reaction Lot # [id number] Given 01/04/2017 Influenza Virus Vaccine, [id number] Quadrivalent, Split, Preservative Free 44169 Given 12/27/2015 Influenza Virus Vaccine, no imediate reaction [id number] Quadrivalent, Split Virus, [place].. [place] [address] Given 12/15/2014 Influenza Virus Vaccine, [id number] Quadrivalent, Split, Preservative Free 89899 Given 12/05/2013 Influenza Virus Vaccine, [id number] Quadrivalent, Split, Preservative Free 62408 Given 11/29/2012 Flu Vaccine Split Virus [id number] Preservative Free For Indiv 3Yr Older 13652 Given 07/17/2012 Tdap - [id number] Tetanus/Diptheria/Acellula r Pertussis Q2037 Given 03/12/2012 Fluvirin Im 3Yrs And Older [id number] 09642 Given 10/03/2011 Pneumonia Vaccine [id number] 82670 Given 02/24/2011 Influenza Virus 3Yrs & [id number] Over 78681 Given 12/17/2006 Influenza Virus 3Yrs & Over Vital Signs Date Vital Result Comment 11/06/2017 Height 59 inches 4'11" Weight 177.00 [...] Color Straw Urine Appearance Clear Urine Specific [place] 1.004 Low 1.010-1.030 Urine pH 7.0 5-9 [...] Laboratory test finding 11/29/2012 Cytology RUN DATE: 12/02/ <SEE 42 NOTE> Lipid Profile 11/27/2012 Triglycerides 87 [...] in selective patients <6.0%. Please refer to [employer] Diabetes Association diabetic care guidelines for further [...] [address]: Arturo Barragan MD Acct: [id number] Unit: [id number] AGE: 62 Location: ED Re05/30/17 SEX: F Status: DEP ER SPEC: [id number] ALONZO: 05/30/[address] [facility] [address]: Lynn SINGH REQ: [id number] RECD: 05/30/17 STATUS: ANISHA CARPENTER DR: Glendy Barragan MD _ SOURCE: URINE SPDESC: ORDERED: Urine Culture Procedure Result Reported Site Urine Culture Final 05/31/17- 1726 ML No growth of clinically significant organisms * ML - Main Lab . END OF REPORT DEPARTMENT OF PATHOLOGY, [address] [place] [address] Db Biswas M.D. Director [facility] # [id number] 9 Junior Art Director: [id number] Because ethnic data is not always [...] and in selective patients <6.0%.Please refer to [employer] Diabetes Association Diabetic care guidelines for further [...] HANNAH TRUONG : [address]: Robbie Napier MD Acct: [id number] Unit: [id number] AGE: 61 Location: OR Re08/04/16 SEX: F Status: REG [facility] SPEC: [id number] ALONZO: 08/04/16-[address] [facility] [address]: Robbie Napier MD REQ: [id number] RECD: 08/04/169165 STATUS: SOUT _ ORDERED: LEVEL 1 FINAL [...] performed at Main Lab DEPARTMENT OF PATHOLOGY, [address] [place] [address] Db Biswas M.D. Director [facility] # [id number] Junior Art Director: [id number] Unable to calculate due to low microalbumin 21 [id number] SEE RESULT BELOW Name: HANNAH TRUONG : [address]: Steven Ayala MD Acct: [id number] Unit: [id number] AGE: 60 Location: [facility] Re03/29/16 SEX: F Status: DEP REF SPEC: [id number] ALONZO: 03/29/16-[address] [facility] [address]: Steven Ayala MD REQ: [id number] RECD: 03/29/16 STATUS: GRAEME CARPENTER DR: Glendy Borrero MD _ ORDERED: LEVEL IV COMMENTS: [id number] FINAL DIAGNOSIS Colon, sigmoid, biopsy: -- Hyperplastic [...] performed at Main Lab DEPARTMENT OF PATHOLOGY, [address] [place] [address] Db Biswas M.D. Director [facility] # [id number] 23 [id number] SEE RESULT BELOW Name: HANNAH TRUONG : [address]: Glendy Borrero MD Acct: [id number] Unit: [id number] AGE: 60 Location: [facility] Re09/21/15 SEX: F Status: REG REF SPEC: [id number] ALONZO: 09/21/[address]: Glendy Borrero MD REQ: [id number] RECD: 09/21/15 STATUS: SOUT _ ORDERED: IMAGE ANALYSIS, HPV/Thin Prep, HPV 16/18 GENE COMMENTS: [id number] FINAL DIAGNOSIS Negative for Intraepithelial lesion or [...] Time Test Result Flag (u) Normal Range 09/21/15 1641 HPV RNA RFLX GE Negative Negative The high-risk HPV types detected by the assay include: 16, 18, 31, 33, 35, 39, 45, 51, 52, 56, 58, 59, 66, and 68. Signed (signature on file) KieranTALA Nash (ASC) 09/21 1419 This Pap test was evaluated with the assistance of the numberFirePrep Test Imaging System. Due to cytologic findings at the solution manager microscope, comprehensive manual rescreening by a Inhalation Therapy Aide may be required. The Pap Smear is [...] performed at Main Lab DEPARTMENT OF PATHOLOGY, [address] [place] [address] Db Biswas M.D. Director [facility] # [id number] RUN DATE: 09/22/15 [facility] LAB LIVE PAGE 1 Patient: HANNAH TRUONG [id number] (Continued) 25 The high-risk HPV types detected [...] and in selective patients <6.0%.Please refer to [employer] Diabetes Association Diabetic care guidelines for further [...] and in selective patients <6.0%.Please refer to [employer] Diabetes Association Diabetic care guidelines for further [...] 58, 59 and 68. Test Performed by: [address] [address] Flosser: Ruel Andre III, M.D. 42 RUN DATE: 12/02/12 [facility] LAB LIVE PAGE 1 RUN TIME: 8750 [address] [place], [place] [address] Specimen Inquiry Name: HANNAH TRUONG : [address]: Glendy Borrero MD Acct: [id number] Unit: [id number] AGE: 57 Location: [facility] Re11/29/12 SEX: F Status: REG REF SPEC: [id number] ALONZO: 11/29/[address] [facility] [address]: Glendy Borrero MD REQ: [id number] RECD: 11/29/12 STATUS: SOUT _ ORDERED: IMAGE ANALYSIS, HPV/Thin Prep FINAL DIAGNOSIS Negative for Intraepithelial lesion or Malignancy COMMENTS: Specimen sent to [facility] in [place], [place] on 12/02/12 by [id number] at 1426. Results will be reported separately. [...] (signature on file) TALA Fox (ASCP) 12/02/12 3862 This Pap test was evaluated with the assistance of the ThinPrep Test Imaging System. Due to cytologic findings at the solution manager microscope, comprehensive manual rescreening by a Inhalation Therapy Aide may be required. The Pap Smear is [...] performed at Main Lab DEPARTMENT OF PATHOLOGY, [address] [place] [address] Db Biswas M.D. Director [facility] Permit #[id number] HDL Interpretation: Undesirable: High Risk: Less [...] and in selective patients <6.0%.Please refer to [employer] Diabetes Association Diabetic care guidelines for further information. 47 Microalbuminuria in a random sample is defined as: Microalbumin/Creatinine ratio of 30-299 ug/mg. 48 Please note change in reference range effective 08 . 49 THERAPEUTIC TARGET FOR THE TREATMENT OF DIABETES MELLITUS PATIENTS IS <7% HBA1C, AND IN SELECTIVE PATIENTS <6.0%. PLEASE REFER TO [place] [employer]OCIATION DIABETIC CARE GUIDELINES FOR FURTHER INFORMATION. 50 New Reference Range and Interpretation effective 11/29/2001 TnI (ng/ml) INTERPRETATION Less Than 0.06 ng/mL NOT SUPPORTIVE OF DIAGNOSIS OF [place] 0.06 - 0.50 ng/ml INDETERMINATE: SUGGEST SERIAL STUDIES IF CLINICALLY INDICATED. Greater than 0.5 ng/mL CONSISTENT WITH DIAGNOSIS OF [place] . 51 Anion gap measurement may be of limited value in the presence of any alkalosis, especially in a combined acid base disorder. . 52 A metabolite of Naproxen, O-desmethylnaproxen, has been shown to interfere with the Jendrassik-Pontotoc method for measuring total bilirubin. Samples from [...] 0.06 ng/mL NOT SUPPORTIVE OF DIAGNOSIS OF [place] 0.06 - 0.50 ng/ml INDETERMINATE: SUGGEST SERIAL STUDIES IF CLINICALLY INDICATED. Greater than 0.5 ng/mL CONSISTENT WITH DIAGNOSIS OF [place] . 55 Please note change in reference range effective 08 . 56 ---- RUN DATE: 12/15/09 [facility] NMI LIVE PAGE 1 RUN TIME: 1506 Specimen Inquiry RUN USER: INTERFACE -- Name: HANNAH TRUONG Status: REG REF Re12/14/09 Age/Sex: 54/F Unit#: [id number] Location: [facility]. : [birth year] -- Specimen: [id number] SOUT Spec Date: 12/14/[address]: Glendy Borrero MD Spec Type: CYTOLOGY [...] evaluated with the assistance of the ThinPrep Pap Test Imaging System. The Pap Smear [...] three years. Initial evaluation performed by Derrick SWIFT CT(ASCP) 12/15/09 Final Interpretation electronically signed by: Derrick SWIFT CT(ASCP) 12/15/09 1505 -- -- DEPARTMENT OF PATHOLOGY, [address] [place] [address] [facility] Permit #[id number] Db Biswas M.D. Director Marco Antonio Diaz M.D. Sociology Adjunct Instructor Dir [email or web address] -- 57 Anion gap measurement may be of limited value in the presence of any alkalosis, especially in a combined acid base disorder. . 58 Note change in reference range as of 10/17/07. The change was based on recommendations from the [place] Diabetes Association. 59 A metabolite of Naproxen, O-desmethylnaproxen, has been shown to interfere with the Jendrassik-Pontotoc method for measuring total bilirubin. Samples from [...] MG/DL Procedures Date CPT Code Description Status 09/20/2017 Diabetic Retinal Eye Exam Completed 07/18/2017 83080 Polysomnography Sleep Staging 4+ Parameters Completed 03/07/2017 21857 Cardiac Event Monitor Completed 02/21/2017 25173 Stress Test Completed 02/16/2017 77375 Mobile Cardiovascular Telemetry Over 24 HR Up To 30 Completed Days 02/01/2017 32431 EKG Tracing & Interpretation Completed 01/31/2017 Mammogram Completed 01/15/2017 83347 Holter Monitor Review (24 hr)dr ramírez & interp only Completed 01/09/2017 92246 ECHO Transthoracic, Real-Time 2D With Doppler And Color Completed Flow 01/09/2017 87352 ECG Monitor/Recording W/Visual Superimposition Scanning Completed 01/04/2017 50905 EKG Tracing & Interpretation Completed 08/04/2016 76227 Removal Implant Deep Wire,Screw Nail,Nilay Or Plate Completed 08/04/2016 97075 Removal Implant Deep Wire,Screw Nail,Nilay Or Plate Completed 04/28/2016 70995 ORIF Trimalleolar Ankle FX Medial And/Or Lateral Completed Malleolus 04/28/2016 85591 EKG, Interpretation Only Completed 04/28/2016 62120 Open TX Of Distaltibiofibular JT Disruption W Or W/O Completed Fixation 04/28/2016 64765 ORIF Trimalleolar Ankle FX Medial And/Or Lateral Completed Malleolus 04/28/2016 87311 Open TX Of Distaltibiofibular JT Disruption W Or W/O Completed Fixation 03/29/2016 Colonoscopy Completed 01/18/2016 39788 ECHO Transthoracic, Real-Time 2D With Doppler And Color Completed Flow 04/23/2015 Diabetic Retinal Eye Exam Completed 12/28/2014 Mammogram Completed 06/17/2013 Diabetic Retinal Eye Exam Completed 01/13/2013 Mammogram Completed 12/05/2012 02433 Xray Knee 3 Views Completed 12/05/2012 18106 Xray Knee 3 Views Completed 02/23/2012 81460 Inhalation TX For Acute Airway Obstruction Completed W/Nebulizer/Inhaler 03/01/2011 51243 ECHO Stress Test Incl Perf Contiuous ekg Monitoring Completed W/Phys Superv 02/24/2011 75635 Noninvasive Ear Or Pulse Oximetry For Oxygen Saturation Completed 02/24/2011 06282 EKG Tracing & Interpretation Completed 01/08/2010 Colonoscopy Completed 12/27/2009 Bone Mineral Density Test Completed 12/27/2009 Mammogram Completed 12/17/2006 17724 EKG Tracing & Interpretation Completed 12/17/2006 80058 EKG Tracing & Interpretation Completed 10/02/2006 Mammogram Completed Encounters Type Date Location Provider CPT E/M Dx Office Visit 10/04/2017 [facility] Robbie Napier, 75028 M17.0 1:00p Won LOWE M25.561 M25.562 Office Visit 09/24/2017 11:00a [facility] Britney Sandhu, 43334 G47.33 Services Of [facility] JOHN, RN, [facility]- Z68.35 Office Visit 06/07/2017 2:30p [facility] [place] [address] R06.83 Services [facility] G47.33 Z87.891 E66.09 Z68.34 Office Visit 05/31/2017 11:40a [facility] Internal Medicine Glendy Borrero, 99841 R11.10 - Safia Nguyen Office Visit 02/01/2017 3:00p [facility] [place] [address] R00.2 [facility] FACC E11.9 G47.33 R00.0 F17.201 Office Visit 01/04/2017 4:20p [facility] Internal Medicine Glendy Borrero 23669 Z00.00 - Safia Nguyen I10 E11.9 Z12.31 R00.2 I27.20 G47.33 Z23 Office Visit 05/02/2016 9:35a [facility] Chan Serra, 26242 R73.03 Hospitalists Patrick I10 S82.892A Office Visit 05/01/2016 9:35a [facility], 47356 S82.892A Assoc, Hospitalists Patrick R73.03 I10 Office Visit 04/30/2016 9:34a [facility] [place], 27361 S82.892A Assoc, Hospitalists Patrick R73.03 I10 Office Visit 04/29/2016 9:33a [facility], 78083 S82.892A Assoc, Hospitalists Patrick R73.03 I10 Office Visit 04/28/2016 9:33a [facility] Tc Devries, 21986 S82.892A Assoc,pc Hospitalists R73.03 I10 Office Visit 04/28/2016 1:51p [facility] Chan Salcido, 58727 S82.852A Of Won Nguyen S93.05xA Office Visit 04/27/2016 9:31a [facility] [place], [address] R73.03 Assoc,pc Hospitalists Patrick S82.892A I10 Office Visit 04/13/2016 2:20p [facility] Internal Medicine Glendy Borrero, 83145 E11.9 - Safia Nguyen I27.2 H61.21 Office Visit 12/27/2015 2:00p [facility] Internal Medicine Glendy Borrero 10603 E11.9 - [place] Patrick R42 Z12.11 Z23 Office Visit 12/15/2014 1:20p [facility] Internal Medicine Glendy Adair 47366 E11.9 - Safia Nguyen K58.0 Z12.31 R21 Z12.11 Z23 Office Visit 12/05/2013 2:40p [facility] Internal Medicine Glendy Adair 91075 250.00 - [place] Patrick 782.1 v04.81 272.2 Office Visit 07/14/2013 1:20p [facility] Internal Medicine Glendy Adair 31134 250.00 - [place] Patrick Office Visit 12/05/2012 10:00a [facility] Zuhair Hall M.D. 82515 717.7 Of C.M.AShayy Office Visit 11/29/2012 3:20p [facility] Internal Medicine Glendy Adair 11934 V70.0 - Safia Nguyen 250.00 v04.81 V76.10 V76.2 Office Visit 04/04/2012 11:00a [facility] Internal Medicine Glendy Adair 03144 250.00 - [place] Patrick V76.10 311 Office Visit 02/23/2012 12:40p [facility] Internal Medicine Susanna Berry M.D. 49190 493.90 - [place] Office Visit 01/11/2012 10:00a [facility] Internal Medicine Betsey Vee N.PShayy 89230 782.1 - [place] Office Visit 10/03/2011 2:40p [facility] Internal Medicine Glendy Borrero 45176 V72.31 - [place] Patrick V70.0 V72.31 250.00 252.00 V76.10 V03.82 Office Visit 07/04/2011 4:00p [facility] Internal Medicine Glendy Borrero 18343 250.00 - [place] Patrick 252.00 Office Visit 05/22/2011 8:40a [facility] Internal Medicine Glendy Borrero 17367 252.00 - [place] M.D. 493.90 Office Visit 03/27/2011 2:40p [facility] Internal Medicine Glendy Cotton, 18253 786.09 - [place] M.D. 790.21 252.00 288.00 Office Visit 02/24/2011 3:40p DO Not Use Glendy Cotton, 06511 252.00 [employer] M.D. 380.4 786.09 790.21 780.51 V04.81 Office Visit 12/23/2010 11:20a DO Not Use Glendy Cotton, 25528 564.1 [employer] [facility] M.D. Office Visit 12/14/2009 2:45p DO Not Use Glendy Cotton, 93030 V70.0 [employer] [facility] M.D. V72.31 782.1 789.09 275.42 Office Visit 02/23/2009 11:30a DO Not Use [employer] [facility] Raeann Zuñiga, 60324 920 M.DShayy 847.0 Office Visit 05/12/2008 4:00p DO Not Use Betsey Vee, 63870 701.1 [employer] [facility] N.P. Office Visit 05/11/2008 1:45p DO Not Use Tere Salcedo M.D., 36263 782.1 [employer] [facility] FACP Office Visit 04/27/2008 10:15a DO Not Use Betsey Nanda, 04506 133.0 [employer] [facility] N.P. Office Visit 04/24/2008 1:30p DO Not Use Betsey Vee, 02167 133.0 [employer] [facility] N.P. Office Visit 09/30/2007 1:30p DO Not Use Raeann Zuñiga, 27179 716.94 [employer] [facility] M.D. 401.1 Office Visit 06/24/2007 11:15a DO Not Use Raeann Zuñiga, 60690 719.40 [employer] [facility] M.D. 723.1 724.2 401.1 Office Visit 12/17/2006 1:45p DO Not Use Raeann Zuñiga, 60184 V72.31 [employer] M.D. 401.1 V04.81 Office Visit 10/17/2006 4:15p DO Not Use RadomsRaeann capone, 35992 380.10 [employer] [facility] M.D. Office Visit 10/15/2006 3:00p DO Not Use RadomsRaeann capone, 42783 380.10 [employer] [facility] M.D. Office Visit 10/12/2006 3:30p DO Not Use Betsey Vee, 23396 380.10 [facility] N.P. Office Visit 08/30/2006 3:30p DO Not Use RadomsRaeann capone, 81732 298.9 [employer] [facility] M.D. 401.1 733.90 Office Visit 12/18/2005 8:30a DO Not Use RadRaeann sanabria, 96481 722.52 [employer] [facility] M.D. 724.2 Office Visit 11/13/2005 4:00p DO Not Use RadomsRaeann capone, 05142 724.2 [employer] [facility] M.D. 724.4 Plan of Care Future Appointment(s):02/05/2018 11:15 am - Britney Sandhu DNP, RN, MANAGER OF TRANSPORTATION- at [facility] Of [facility]05/06/2018 11:00 am - Glendy Borrero M.D. at [facility] Internal Medicine [facility]01/21/2018 1:15 pm - [facility]2017 - Britney Sandhu DNP, RN, [facility]-BCG47.33 Obstructive sleep apnea (adult) (pediatric)Follow up:3 monthsRecommendations:Continue PAP device, Benefitting and compliant with treatment. Change setting to min 6 max 10 Cleaning Wipe off mask daily (baby wipe-no scent, or warm water) Clean mask, tubing, filter, and water chamber weekly in mild no scent dish soap and water. Hang to dry. So-Clean is an option (not covered byinsurance) If you have any sleepiness while driving you MUST avoid operating a vehicle or machinery. If you have difficulty with your equipment, or need to replace your mask or hoses, please contact your homecare agency. A weight change of 20 pounds or more may have an effect on your equipment; if you are experiencing problems please call for an appointment. If you have any further questions, please call the [facility] Disorder Center at [phone].O76.37 Central sleep apnea in conditions classified elsewhereRecommendations:see assessment #1 (PAP induced) will lower upper hutvbtfkZ92.35 Body mass index (BMI) 35.0-35.9, adultRecommendations:avoid weight gain
--- OUTSIDE RECORDS SUMMARY | 2017-11-10 11:16 | XMS REPORT ---
:1955 External Reference #:[id number] Author Organization [facility] Address [address] [place] [address] Phone [phone] Care Team Providers Name Role Phone Glendy Borrero M.D. 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 Primary Care Physician Unavailable Payers Type Date Identification Numbers Payment Provider Subscriber Medicare Primary Policy Number: [id number] [facility] Liv Gallowayemani PayID: [id number] [address] [place] [address] Medigap Part B Policy Number: [id number] [employer] Liv Gallowayemani PayID: [id number] [address] [place] [address] Problems Date Description Provider Status Onset: 03/16/2011 Impacted lester Spence M.D. 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 day Mometasone Hx Solution 0.1% 45gm apply to 380.22 Abel Jean 012 - both Bebe, ears bid Patrick 013 mix with olive oil and drop in ear Vital Signs Date Vital Result Comment 10/23/2017 Weight 175.00 lb Weight in kg's 79.380 Height 62 inches 5'2" Height in cm's 157.5 cm BMI (Body Mass Index) 32.0 kg/m2 08/26/2013 BP Systolic 119 mmHg BP Diastolic 84 mmHg Heart Rate 86 /min Respiratory Rate 16 /min Weight 172.00 lb Weight in kg's 78.019 Height 62 inches 5'2" Height in cm's 157.5 cm BMI (Body Mass Index) 31.5 kg/m2 08/08/2012 BP Systolic 123 mmHg BP Diastolic 80 mmHg Heart Rate 54 /min Respiratory Rate 16 /min Weight 174.00 lb Weight in kg's 78.926 Height 62 inches 5'2" Height in cm's 157.5 cm BMI (Body Mass Index) 31.8 kg/m2 03/15/2011 BP Systolic 133 mmHg BP Diastolic 85 mmHg Heart Rate 87 /min Respiratory Rate 16 /min Weight 177.00 lb Weight in kg's 80.287 Height 61.5 inches 5'1.50" Height in cm's 156.2 cm BMI (Body Mass Index) 32.9 kg/m2 Results Description No Information Procedures Date CPT Code Description Status 10/23/2017 33704 Removal Wax Impaction Completed 08/26/2013 27244 Removal Wax Impaction Completed 08/08/2012 06754 Removal Wax Impaction Completed 10/12/2011 77833 Removal Wax Impaction Completed 03/15/2011 22680 Removal Wax Impaction Completed Plan of Care 10/23/2017 - Abel Spence M.D.H61.23 Impacted cerumen, bilateralComments:The patient's cerumen impaction was cleaned without difficulty. She has mild inflammation of her canals. I treated this today with Boric acid and chloromycetin powder. I recommended alcohol and white vinegar drops after swimming and she can also use some olive oil.
--- OUTSIDE RECORDS SUMMARY | 2017-11-10 11:16 | XMS REPORT ---
:1955 External Reference #:[id number] Author Organization [facility] Address [address] [place] [address] [place] [address] Phone [phone] Care Team Providers Name Role Phone Glendy Borrero MD Primary Care Physician Unavailable Payers Type Date Identification Numbers Payment Provider Subscriber Medicare Primary Policy Number: [id number] Medicare Meghan Parramary ellen PayID: [id number] [address] [place] [address] [facility] Part B Policy Number: [id number] [facility] Meghan Truong PayID: [id number] [address] [place] [address] Problems Date Description Provider Status Onset: 03/09/2010 Depressive disorder Glendy Borrero M.D. Active Onset: 07/04/2011 Type 2 diabetes mellitus Glendy Borrero M.D. Active Onset: 03/09/2010 Benign essential hypertension Glendy Borrero M.D. Active Onset: 03/09/2010 Hyperparathyroidism Glendy Borrero M.D. 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 DRIVER-BC Onset: 09/24/2017 Body mass index 30+ - obesity Britney Sandhu DNP, RN, Active PATROL DRIVER-BC Family History Date Family Member(s) Problem(s) Comments General Paternal Uncle from COPD : (age 88 Father due to Heart Probably [place] - sudden Years) Disease Siblings 3 2 [...] digestive upset active Mild to Moderate 02/01/2017 Salmon digestive upset active Mild to Moderate 12/10/2009 [...] hours as needed Nystop 12/05 Hx Powder [id number] 60gm apply 782.1 t/GM twice Cotton, - [...] Code Status Date Vaccine Reaction Lot # [id number] Given 01/04/2017 Influenza Virus Vaccine, [id number] Quadrivalent, Split, Preservative Free 18818 Given 12/27/2015 Influenza Virus Vaccine, no imediate reaction [id number] Quadrivalent, Split Virus, [place].. [place] [address] Given 12/15/2014 Influenza Virus Vaccine, [id number] Quadrivalent, Split, Preservative Free 97442 Given 12/05/2013 Influenza Virus Vaccine, [id number] Quadrivalent, Split, Preservative Free 93572 Given 11/29/2012 Flu Vaccine Split Virus [id number] Preservative Free For Indiv 3Yr Older 90478 Given 07/17/2012 Tdap - [id number] Tetanus/Diptheria/Acellula r Pertussis Q2037 Given 03/12/2012 Fluvirin Im 3Yrs And Older [id number] 01103 Given 10/03/2011 Pneumonia Vaccine [id number] 04128 Given 02/24/2011 Influenza Virus 3Yrs & [id number] Over 46034 Given 12/17/2006 Influenza Virus 3Yrs & Over Vital Signs Date Vital Result Comment 11/05/2017 Height 59 inches 4'11" Weight 180.00 [...] Test Date Test Result H/L Range Note Lipid Profile (Trig/Chol/HDL) 10/30/2017 Triglycerides 105 mg/dL 1 Cholesterol 189 mg/dL 2 HDL Cholesterol 65.9 mg/dL 3 LDL Cholesterol 102 mg/dL 4 Comp Metabolic Panel 10/30/2017 Sodium 138 mmol/L [...] Egfr Non- 50.0 >60 Egfr 60.5 >60 5 Laboratory test finding 10/30/2017 Hemoglobin A1c (Glyco 6.1 % High 4.0- 5.6 6 HGB) Urine Microalbumin Random 10/30/2017 Ur Microalbumin (mg/L) < 15.0 Urine Creatinine 61.40 mg/dL Urine Microalbumin/Creatinine TNP <31 7 Urinalysis Profile 05/30/2017 Urine Color Straw Urine Appearance Clear Urine Specific Coolidge 1.004 Low 1.010-1.030 Urine pH 7.0 5-9 [...] Stim Horm) 1.44 mcIU/mL 0.34-5.60 Laboratory test finding 01/04/2017 Hemoglobin A1c 6.0 5-7 Comp Metabolic Panel 09/18/2016 Sodium 139 mmol/L [...] Egfr Non- 45.8 >60 Egfr 58.9 >60 11 Lipid Profile (Trig/Chol/HDL) 09/18/2016 Triglycerides 110 mg/dL 12 Cholesterol 226 mg/dL 13 HDL Cholesterol 73.6 mg/dL 14 LDL Cholesterol 130 mg/dL 15 Laboratory test 09/18/2016 Hemoglobin A1c 6.1 % High Less than 16 finding (Glyco HGB) 6.0 Laboratory test 08/04/2016 Surgical Pathology SEE RESULT 17 finding BELOW Laboratory test 08/04/2016 Point of Care 119 mg/dL High 74-106 18 finding Glucose Urine Microalbumin 04/13/2016 Urine Creatinine 123.55 mg/dL 19 Random Ur Microalbumin (mg/L) < 15.0 mg/L 19 Urine Microalbumin/Creatinine TNP ug/mg <31 19, 20 Laboratory test 03/29/2016 Surgical Interface SEE RESULT BELOW 21, 22 finding Order Laboratory test 12/27/2015 Hemoglobin A1c 6.1 5-7 finding Laboratory test 09/21/2015 Cytology SEE RESULT BELOW 23, 24 finding HPV Rna Ww/Reflex Genotype Negative Negative 23, 25 Comp Metabolic Panel 06/23/2015 Sodium 136 mmol/L [...] Egfr Non- 48.3 >60 Egfr 62.1 >60 26 Laboratory test 06/23/2015 Hemoglobin A1c (Glyco 5.9 % Less than 6.0 27 finding HGB) Lipid Profile 06/23/2015 Triglycerides 114 mg/dL 28 (Trig/Chol/HDL) Cholesterol 221 mg/dL 29 HDL Cholesterol 66.9 mg/dL 30 LDL Cholesterol 131 mg/dL 31 Laboratory test finding 12/15/2014 Hemoglobin A1c 5.8 5-7 Urine Microalbumin Random 12/15/2014 Ur Microalbumin (mg/L) < 5.0 mg/L Urine Creatinine 36.85 mg/dL Urine Microalbumin/Creatinine TNP ug/mg <31 32 Laboratory test finding 06/15/2014 Hemoglobin A1c 5.9 5-7 Laboratory test finding 12/02/2013 Hemoglobin A1c 6.0 % Less than 6.0 33 , 34 Comp Metabolic Panel 12/02/2013 Sodium 137 mmol/L [...] 48.1 >60 33 Egfr 61.9 >60 33, 35 Lipid Profile (Trig/Chol/HDL) 12/02/2013 Triglycerides 83 mg/dL 33, 36 Cholesterol 219 mg/dL 33, 37 HDL Cholesterol 79.8 mg/dL 33, 38 LDL Cholesterol 123 mg/dL 33, 39 Urine Microalbumin Random 12/02/2013 Ur Microalbumin (mg/L) 12.0 mg/L 33 Urine Creatinine 127.55 mg/dL 33 Urine Microalbumin/Creatinine 9.4 Less Than 31 33 Laboratory test finding 07/14/2013 Hemoglobin A1c 5.8 5-7 Human Papilloma 12/02/2012 Human Papillomavirus Source See Comment 40 Human Papillomavirus High Risk Negative Negative 41 Laboratory test finding 11/29/2012 Cytology RUN DATE: <SEE 42 NOTE> Lipid Profile 11/27/2012 Triglycerides [...] finding 03/02/2011 Troponin-I 0.01 NG/ML 0-0.06 54 Laboratory test finding 03/07/2010 Calcium Ionized 5.64 mg/dL High 4.65- 5.28 Rheumatoid Factor < 20.0 IU/mL Less Than 20 C Reactive Protein 0.7 mg/dL High Less Than 0.5 Erythrocyte Sed Rate 8 MM/HR 0-30 PTH Intact, Inc Total Calcium 03/07/2010 PTH Intact 9.5 PMOL/L High 1.3- 9.3 Calcium For Pthi 10.8 mg/dL High 8.1-9.9 55 Cytology 12/14/2009 Cytology <SEE NOTE> 56 Comp [...] mg/dL High Less Than 100 63 1 Desirable: <150 Borderline High: 150-199 High: 200-499 Very High: >500 2 Desirable: <200 Borderline High: 200-239 High: >239 3 Low: <40 Desirable: 40-60 High: >60 4 Desirable: <100 Near Optimal: 100-129 Borderline High: 130-159 High: 160-189 Very High: >189 5 Because ethnic data is not always readily [...] 15-29 5 Kidney failure <15 (or dialysis) 6 Therapeutic target for the treatment of diabetes mellitus patients is <7% HBA1C, and in selective patients <6.0%. Please refer to [place] [employer] Association diabetic care guidelines for further information. 7 Unable to calculate due to low microalbumin 8 SEE RESULT BELOW Name: NARESHHANNAH : [address]: Arturo Barragan MD Acct: [id number] Unit: [id number] AGE: 62 Location: ED Re05/30/17 SEX: F Status: DEP ER SPEC: [id number] ALONZO: 05/30/[address] [facility] [address]: Lynn SINGH REQ: [id number] RECD: 05/30/17 STATUS: ANISHA CARPENTER DR: Glendy Barragan MD _ SOURCE: URINE SPDESC: ORDERED: Urine Culture Procedure Result Reported Site Urine Culture Final 05/31/17- 1726 ML No growth of clinically significant organisms * ML - Main Lab . END OF REPORT DEPARTMENT OF PATHOLOGY, [address] [place] [address] Db Biswas M.D. Director [facility] # [id number] Mainframe Software Developer: [id number] 10 Because ethnic data is not always [...] 5 Kidney failure <15 (or dialysis) 11 Because ethnic data is not always readily [...] 15-29 5 Kidney failure <15 (or dialysis) 12 Desirable <150 Borderline high 150-199 High 200-499 Very High >500 13 Desirable <200 Borderline high 200-239 High >239 14 Low <40 Desirable: 40-60 High: >60 15 Desirable: <100 mg/dL Near Optimal: 100-129 mg/dL Borderline High: 130-159 mg/dL High: 160-189 mg/dL Very High: >189 mg/dL 16 Therapeutic target for the treatment of diabetes Mellitus patients is <7% HBA1C, and in selective patients <6.0%.Please refer to [place] [employer] Diabetic care guidelines for further information. 17 SEE RESULT BELOW Name: NARESHHANNAH : [address]: Robbie Napier MD Acct: [id number] Unit: [id number] AGE: 61 Location: OR Re08/04/16 SEX: F Status: REG [facility] SPEC: [id number] ALONZO: 08/04/16-[address] [facility] [address]: Robbie Napier MD REQ: [id number] RECD: 08/04/160433 STATUS: SOUT _ ORDERED: LEVEL 1 FINAL [...] performed at Main Lab DEPARTMENT OF PATHOLOGY, [address] [place] [address] Db Biswas M.D. Director [facility] # [id number] Mainframe Software Developer: [id number] Unable to calculate due to low microalbumin 21 [id number] 22 SEE RESULT BELOW Name: HANNAH TRUONG : [address]: Steven Ayala MD Acct: [id number] Unit: [id number] AGE: 60 Location: [facility] Re03/29/16 SEX: F Status: DEP REF SPEC: [id number] ALONZO: 03/29/16-[address] [facility] [address]: Steven Ayala MD REQ: [id number] RECD: 03/29/16 STATUS: GRAEME CARPENTER DR: Glendy Borrero MD _ ORDERED: LEVEL IV COMMENTS: [id number] FINAL DIAGNOSIS Colon, sigmoid, biopsy: -- Hyperplastic [...] performed at Main Lab DEPARTMENT OF PATHOLOGY, [address] [place] [address] Db Biswas M.D. Director [facility] # [id number] SEE RESULT BELOW Name: HANNAH TRUONG : [address]: Glendy Borrero MD Acct: [id number] Unit: [id number] AGE: 60 Location: [facility] Re09/21/15 SEX: F Status: REG REF SPEC: [id number] ALONZO: 09/21/[address] [facility] [address]: Glendy Borrero MD REQ: [id number] RECD: 09/21/15 STATUS: SOUT _ ORDERED: IMAGE ANALYSIS, HPV/Thin Prep, HPV 16/18 GENE COMMENTS: [id number] FINAL DIAGNOSIS Negative for Intraepithelial lesion or [...] 68. Signed (signature on file) KieranTALA Nash (ASCP) 09/21 1419 This Pap test was evaluated with the assistance of the BlueLithiumPrep Test Imaging System. Due to cytologic findings at the block stacker microscope, comprehensive manual rescreening by a Muffler Hand may be required. The Pap Smear is [...] performed at Main Lab DEPARTMENT OF PATHOLOGY, [address] [place] [address] Db Biswas M.D. Director [place] # [id number] RUN DATE: 09/22/15 [facility] LAB LIVE PAGE 1 Patient: HANNAH TRUONG [id number] (Continued) 25 The high-risk HPV types detected by the assay include: 16, 18, 31, 33, 35, 39, 45, 51, 52, 56, 58, 59, 66, and 68. 26 Because ethnic data is not always readily [...] 15-29 5 Kidney failure <15 (or dialysis) 27 Therapeutic target for the treatment of diabetes Mellitus patients is <7% HBA1C, and in selective patients <6.0%.Please refer to [place] [employer] Diabetic care guidelines for further information. 28 Desirable <150 Borderline high 150-199 High 200-499 Very High >500 29 Desirable <200 Borderline high 200-239 High >239 30 Low <40 Desirable: 40-60 High: >60 31 Desirable: <100 mg/dL Near Optimal: 100-129 mg/dL Borderline High: 130-159 mg/dL High: 160-189 mg/dL Very High: >189 mg/dL 32 Unable to calculate due to low microalbumin 33 FASTING~DUE IN 34 Therapeutic target for the treatment of diabetes Mellitus patients is <7% HBA1C, and in selective patients <6.0%.Please refer to [place] [employer] Diabetic care guidelines for further information. 35 Because ethnic data is not always readily [...] 15-29 5 Kidney failure <15 (or dialysis) 36 Desirable <150 Borderline high 150-199 High 200-499 Very High >500 37 Desirable <200 Borderline high 200-239 High >239 38 Low <40 Desirable: 40-60 High: >60 39 Desirable <100 Near Optimal 100-129 Borderline high 130-159 High 160-189 Very High >189 40 RESULT: Ectocervical/Endocervical 41 For types 16, 18, 31, 33, 35, 39, 45, 51, 52, 56, 58, 59 and 68. Test Performed by: [address] [address] Rag Grader: Ruel Andre III, M.D. 42 RUN DATE: 12/02/12 [facility] LAB LIVE PAGE 1 RUN TIME: [id number] [place], [place] [address] Specimen Inquiry Name: HANNAH TRUONG : [address]: Glendy Borrero MD Acct: [id number] Unit: [id number] AGE: 57 Location: [facility] Re11/29/12 SEX: F Status: REG REF SPEC: [id number] ALONZO: 11/29/12-[address] [facility] [address]: Glendy Borrero MD REQ: [id number] RECD: 11/29/12 STATUS: SOUT _ ORDERED: IMAGE ANALYSIS, HPV/Thin Prep FINAL DIAGNOSIS Negative for Intraepithelial lesion or Malignancy COMMENTS: Specimen sent to [facility] in [place], [place] on 12/02/12 by [id number] at 1426. Results will be reported separately. [...] (signature on file) TALA Fox (ASCP) 12/02/12 6672 This Pap test was evaluated with the assistance of the BlueLithiumPrep Test Imaging System. Due to cytologic findings at the block stacker microscope, comprehensive manual rescreening by a Muffler Hand may be required. The Pap Smear is [...] performed at Main Lab DEPARTMENT OF PATHOLOGY, [address] [place] [address] Db Biswas M.D. Director [facility] Permit #[id number] HDL Interpretation: Undesirable: High Risk: Less [...] and in selective patients <6.0%.Please refer to [place] [employer] Diabetic care guidelines for further information. 47 Microalbuminuria in a random sample is defined as: Microalbumin/Creatinine ratio of 30-299 ug/mg. 48 Please note change in reference range effective 08 . 49 THERAPEUTIC TARGET FOR THE TREATMENT OF DIABETES MELLITUS PATIENTS IS <7% HBA1C, AND IN SELECTIVE PATIENTS <6.0%. PLEASE REFER TO [place] [employer] DIABETIC CARE GUIDELINES FOR FURTHER INFORMATION. 50 New Reference Range and Interpretation effective 11/29/2001 TnI (ng/ml) INTERPRETATION Less Than 0.06 ng/mL NOT SUPPORTIVE OF DIAGNOSIS OF [place] 0.06 - 0.50 ng/ml INDETERMINATE: SUGGEST SERIAL STUDIES IF CLINICALLY INDICATED. Greater than 0.5 ng/mL CONSISTENT WITH DIAGNOSIS OF [place] . 51 Anion gap measurement may be of limited value in the presence of any alkalosis, especially in a combined acid base disorder. . 52 A metabolite of Naproxen, O-desmethylnaproxen, has been shown to interfere with the Jendrassik-Lacy-Lakeview method for measuring total bilirubin. Samples from [...] 0.06 ng/mL NOT SUPPORTIVE OF DIAGNOSIS OF [place] 0.06 - 0.50 ng/ml INDETERMINATE: SUGGEST SERIAL STUDIES IF CLINICALLY INDICATED. Greater than 0.5 ng/mL CONSISTENT WITH DIAGNOSIS OF [place] . 55 Please note change in reference range effective 08 . 56 ---- RUN DATE: 12/15/09 [facility] NMI LIVE PAGE 1 RUN TIME: 1506 Specimen Inquiry RUN USER: INTERFACE -- Name: HANNAH TRUONG Status: REG REF Re12/14/09 Age/Sex: 54/F Unit#: [id number] Location: [facility] : [birth year] -- Specimen: [id number] SOUT Spec Date: 12/14/09 [facility] Dr: Glendy Borrero MD Spec Type: CYTOLOGY [...] years. Initial evaluation performed by Derrick SWIFT CT([facility]) 12/15/09 Final Interpretation electronically signed by: Derrick SWIFT CT([facility]) 12/15/09 1505 -- -- DEPARTMENT OF PATHOLOGY, [address] [place] [address] [facility] Permit #[id number] Db Biswas M.D. Director Marco Antonio Diaz M.D. Environmental Remediation Consultant Dir [email or web address] -- 57 Anion gap measurement may be of limited value in the presence of any alkalosis, especially in a combined acid base disorder. . 58 Note change in reference range as of 10/17/07. The change was based on recommendations from the [place] [employer]. 59 A metabolite of Naproxen, O-desmethylnaproxen, has been shown to interfere with the Jendrjuan miguelik-Ananth method for measuring total bilirubin. Samples from [...] 09/20/2017 Diabetic Retinal Eye Exam Completed 07/18/2017 49744 Polysomnography Sleep Staging 4+ Parameters Completed 03/07/2017 70504 Cardiac Event Monitor Completed 02/21/2017 37872 Stress Test Completed 02/16/2017 80153 Mobile Cardiovascular Telemetry Over 24 HR Up To 30 Completed Days 02/01/2017 55072 EKG Tracing & Interpretation Completed 01/31/2017 Mammogram Completed 01/15/2017 02374 Holter Monitor Review (24 hr)dr review & interp only Completed 01/09/2017 95752 ECHO Transthoracic, Real-Time 2D With Doppler And Color Completed Flow 01/09/2017 47413 ECG Monitor/Recording W/Visual Superimposition Scanning Completed 01/04/2017 87280 EKG Tracing & Interpretation Completed 08/04/2016 40414 Removal Implant Deep Wire,Screw Nail,Nilay Or Plate Completed 08/04/2016 18571 Removal Implant Deep Wire,Screw Nail,Nilay Or Plate Completed 04/28/2016 47378 ORIF Trimalleolar Ankle FX Medial And/Or Lateral Completed Malleolus 04/28/2016 31888 EKG, Interpretation Only Completed 04/28/2016 28527 Open TX Of Distaltibiofibular JT Disruption W Or W/O Completed Fixation 04/28/2016 71344 ORIF Trimalleolar Ankle FX Medial And/Or Lateral Completed Malleolus 04/28/2016 61840 Open TX Of Distaltibiofibular JT Disruption W Or W/O Completed Fixation 03/29/2016 Colonoscopy Completed 01/18/2016 60733 ECHO Transthoracic, Real-Time 2D With Doppler And Color Completed Flow 04/23/2015 Diabetic Retinal Eye Exam Completed 12/28/2014 Mammogram Completed 06/17/2013 Diabetic Retinal Eye Exam Completed 01/13/2013 Mammogram Completed 12/05/2012 24714 Xray Knee 3 Views Completed 12/05/2012 09596 Xray Knee 3 Views Completed 02/23/2012 88626 Inhalation TX For Acute Airway Obstruction Completed W/Nebulizer/Inhaler 03/01/2011 89212 ECHO Stress Test Incl Perf Contiuous ekg Monitoring Completed W/Phys Superv 02/24/2011 83140 Noninvasive Ear Or Pulse Oximetry For Oxygen Saturation Completed 02/24/2011 72714 EKG Tracing & Interpretation Completed 01/08/2010 Colonoscopy Completed 12/27/2009 Bone Mineral Density Test Completed 12/27/2009 Mammogram Completed 12/17/2006 70784 EKG Tracing & Interpretation Completed 12/17/2006 72464 EKG Tracing & Interpretation Completed 10/02/2006 Mammogram Completed Encounters Type Date Location Provider CPT E/M Dx Office Visit 10/04/2017 [facility] Napier, 77442 M17.0 1:00p Won LOWE M25.561 M25.562 Office Visit 09/24/2017 11:00a [facility] Britney Sandhu 11438 G47.33 [facility] LOPEZ RN, PATROL DRIVER-BC Z68.35 Office Visit 06/07/2017 2:30p [facility] [place] [address] R06.83 [facility] G47.33 Z87.891 E66.09 Z68.34 Office Visit 05/31/2017 11:40a [facility] Glendy Borrero, 92472 R11.10 - Safia Nguyen Office Visit 02/01/2017 3:00p [facility] [address] R00.2 [facility] FAC E11.9 G47.33 R00.0 F17.201 Office Visit 01/04/2017 4:20p [facility] Glendy Borrero, 85785 Z00.00 - Safia Nguyen I10 E11.9 Z12.31 R00.2 I27.20 G47.33 Z23 Office Visit 05/02/2016 9:35a [facility], Chan Serra, 97352 R73.03 Hospitalists Patrick I10 S82.892A Office Visit 05/01/2016 9:35a [facility], 89140 S82.892A Assoc, Hospitalists Patrick R73.03 I10 Office Visit 04/30/2016 9:34a [facility], 93570 S82.892A Assoc,pc Hospitalists Patrick R73.03 I10 Office Visit 04/29/2016 9:33a [facility], 29254 S82.892A Assoc, Hospitalists Patrick R73.03 I10 Office Visit 04/28/2016 9:33a [facility] Tc Devries, 78455 S82.892A Assoc, Hospitalists R73.03 I10 Office Visit 04/28/2016 1:51p [facility] Chan Salcido, 46212 S82.852A Of Won Nguyen S93.05xA Office Visit 04/27/2016 9:31a [facility] [place] [place], [address] R73.03 Assoc, Hospitalists Patrick S82.892A I10 Office Visit 04/13/2016 2:20p [facility] Glendy Borrero, 24256 E11.9 - Safia Nguyen I27.2 H61.21 Office Visit 12/27/2015 2:00p [facility] Glendy Borrero, 90315 E11.9 - Safia Nguyen R42 Z12.11 Z23 Office Visit 12/15/2014 1:20p [facility] Glendyjake Borrero 68784 E11.9 - [place] Patrick K58.0 Z12.31 R21 Z12.11 Z23 Office Visit 12/05/2013 2:40p [facility] Glendyjake Borrero 65774 250.00 - [place] Rosalba.Anh 782.1 v04.81 272.2 Office Visit 07/14/2013 1:20p [facility] Glendyjake Borrero 07932 250.00 - [place] M.DShayy Office Visit 12/05/2012 10:00a [facility] Zuhair Hall M.D. 74779 717.7 Of C.M.AShayy Office Visit 11/29/2012 3:20p [facility] Glendy Borrero 48664 V70.0 - [place] M.Anh 250.00 v04.81 V76.10 V76.2 Office Visit 04/04/2012 11:00a [facility] Glendy Borrero 57212 250.00 - [place] Patrick V76.10 311 Office Visit 02/23/2012 12:40p [facility] Susanna Berry M.D. 74249 493.90 - [place] Office Visit 01/11/2012 10:00a [facility] Betsey Vee N.PShayy 95690 782.1 - [place] Office Visit 10/03/2011 2:40p [facility] Glendy Borrero 37372 V72.31 - Safia Nguyen V70.0 V72.31 250.00 252.00 V76.10 V03.82 Office Visit 07/04/2011 4:00p [facility] Glendy Borrero 13969 250.00 - [place] Patrick 252.00 Office Visit 05/22/2011 8:40a [facility] Glendy Borrero 88169 252.00 - [place] MJulian 493.90 Office Visit 03/27/2011 2:40p [facility] Glendy Borrero 12101 786.09 - Safia Nguyen 790.21 252.00 288.00 Office Visit 02/24/2011 3:40p DO Not Use Glendy Cotton, 13044 252.00 [employer] M.D. 380.4 786.09 790.21 780.51 V04.81 Office Visit 12/23/2010 11:20a DO Not Use Glendy Cotton, 53733 564.1 [employer] [facility] M.D. Office Visit 12/14/2009 2:45p DO Not Use Glendy Cotton, 80509 V70.0 [employer] [facility] M.D. V72.31 782.1 789.09 275.42 Office Visit 02/23/2009 11:30a DO Not Use [employer] [facility] Raeann Zuñiga, 30129 920 M.D. 847.0 Office Visit 05/12/2008 4:00p DO Not Use Betsey Varn, 14062 701.1 [employer] [facility] N.P. Office Visit 05/11/2008 1:45p DO Not Use Tere Salcedo M.D., 87436 782.1 [employer] [facility] FACP Office Visit 04/27/2008 10:15a DO Not Use Betsey Varn, 12476 133.0 [employer] [facility] N.P. Office Visit 04/24/2008 1:30p DO Not Use Betsey Varn, 47123 133.0 [employer] [facility] N.P. Office Visit 09/30/2007 1:30p DO Not Use Raeann Zuñiga, 12802 716.94 [employer] [facility] M.D. 401.1 Office Visit 06/24/2007 11:15a DO Not Use Raeann Zuñiga, 08383 719.40 [employer] M.D. 723.1 724.2 401.1 Office Visit 12/17/2006 1:45p DO Not Use Raeann Zuñiga, 85211 V72.31 [employer] [facility] M.D. 401.1 V04.81 Office Visit 10/17/2006 4:15p DO Not Use Raeann Zuñiga, 88196 380.10 [employer] [facility] M.D. Office Visit 10/15/2006 3:00p DO Not Use Raeann Zuñiga, 30704 380.10 [employer] [facility] M.Anh Office Visit 10/12/2006 3:30p DO Not Use Betsey Vee, 09933 380.10 [facility] N.P. Office Visit 08/30/2006 3:30p DO Not Use Raeann Zuñiga, 20121 298.9 [facility] M.DShayy 401.1 733.90 Office Visit 12/18/2005 8:30a DO Not Use RadRaeann sanabria, 92621 722.52 [facility] M.Anh 724.2 Office Visit 11/13/2005 4:00p DO Not Use RadRaeann sanabria, 78281 724.2 [facility] M.Anh 724.4 Plan of Care Future Appointment(s):05/06/2018 11:00 am - Glendy Borrero M.D. at [facility] - Ihnteelqr52/26/2018 1:15 pm - Robbie Napier MD at [facility]11/06/2017 11:30 am - Britney Sandhu DNP, RN, PATROL DRIVER - at [facility]11/05/2017 - Glendy Borrero M.D.E11.9 Type 2 diabetes mellitus without complicationsNew Medication: Atorvastatin Calcium 10 mgComments:Your A1C is 6.1 which is excellent Your 10 year heart/stroke risk is 9% - starting atorvastatin to reduce risk Increase activity - walk for an hour a day with the dogStop buying cookies at [employer] Flu shot in the next month There is a new shingles vaccine - Shingrix. This is available at pharmacies.Series of 2 shots, given 2-6 months apart. Most people get a flu-like reaction. Cost is about $400 -call your insurance about coverage.Follow up:6 months for AWVM25.569 Pain in unspecified knee
--- NOTE | 2017-11-10 11:42 | RAD ---
INDICATION: Left knee gave out. TECHNIQUE: 4 views of the left knee were obtained. FINDINGS: The bones are in normal alignment. There is a small joint effusion present. No fracture is seen. There is mild osteoarthritic change in the patellofemoral compartment. IMPRESSION: SMALL JOINT EFFUSION, NO FRACTURE IS SEEN.
--- NOTE | 2017-11-10 12:15 | ED ---
Lower Extremity - HPI Summary HPI Summary: Patient is a 62 y/o F w/ c/o left knee pain. She states she was walking briskly today when her left knee gave out. Patient reports that she may have heard something pop or snap. Patient notes that she staggered but did not fall. She was not able to bear weight on this leg and needed another person to assist her with walking. In room she reports weight bearing still aggravates Sx and does not note anything that alleviates Sx. Patient notes that she has been having trouble with this knee in the past and reports Dx of arthritis. She states that she received a cortisone shot 9 days ago. Patient is concerned that present Sx are more serious. On triage, pain is rated 4/10. Home medications and allergies are reviewed. - History of Current Complaint Chief Complaint: EDExtremityLower Stated Complaint: LT KNEE INJURY Time Seen by Provider: 11/10/17 10:55 Hx Obtained From: Patient Mechanism Of Injury: Other - walking briskly, felt something pop/snap in knee and patient staggered Onset of Pain: Prior to Arrival Onset/Duration: Still Present Severity Currently: Moderate - 5/10 Pain Intensity: 5 Pain Scale Used: 0-10 Numeric - 5/10 Timing: Constant Location: Is Discrete @ - left knee Aggravating Factor(s): Weight Bearing Alleviating Factor(s): Nothing - Allergies/Home Medications Allergies/Adverse Reactions: Allergies Allergy/AdvReac Type Severity Reaction Status Date / Time No Known Allergies Allergy Verified 11/10/17 10:49 PMH/Surg Hx/FS Hx/Imm Hx Endocrine/Hematology History: Reports: Hx Diabetes - Borderline - no meds Cardiovascular History: Reports: Hx Hypertension Respiratory History: Reports: Hx Asthma, Hx Sleep Apnea GI History: Reports: Hx Irritable Bowel, Hx Ulcer - healed from childhood History: Denies: Hx Dialysis, Hx Kidney Stones, Hx Renal Disease Musculoskeletal History: Reports: Hx Arthritis Sensory History: Denies: Hx Cataracts, Hx Contacts or Glasses, Hx Hearing Aid Opthamlomology History: Denies: Hx Cataracts, Hx Contacts or Glasses Psychiatric History: Reports: Hx Depression - Cancer History Hx Chemotherapy: No Hx Radiation Therapy: No - Surgical History Surgery Procedure, Year, and Place: tonsilectomy. appendectomy. R overy removed ~15years ago. Carpal tunnel Hx Anesthesia Reactions: No Infectious Disease History: No Infectious Disease History: Denies: Traveled Outside the [place] in Last 30 Days - Family History Known Family History: Positive: Diabetes - Social History Alcohol Use: Rare Hx Substance Use: No Substance Use Type: Reports: None Hx Tobacco Use: Yes Smoking Status (MU): Former Smoker Amount Used/How Often: smoked for 25 years ago 1/2- 1.5 ppd Review of Systems Negative: Fever - on vitals, temp is 98.0 F Positive: Other - left knee pain All Other Systems Reviewed And Are Negative: Yes Physical Exam - Summary Physical Exam Summary: Appearance: Well appearing, no pain distress Skin: warm, dry, reflects adequate perfusion Head/face: normal Eyes: EOMI, EDMUNDO ENT: normal Neck: supple, non-tender Respiratory: CTA, breath sounds present Cardiovascular: RRR, pulses symmetrical Abdomen: non-tender, soft Bowel Sounds: present Musculoskeletal: strength/ROM intact; slight effusion at left knee, medial joint line tenderness; no other abnormal findings Neuro: normal, sensory motor intact, A&Ox3 Triage Information Reviewed: Yes Vital Signs On Initial Exam: Initial Vitals Temp Pulse Resp BP Pulse Ox 98.0 F 74 16 121/61 96 11/10/17 10:47 11/10/17 10:47 11/10/17 10:47 11/10/17 10:47 11/10/17 10:47 Vital Signs Reviewed: Yes Diagnostics - Vital Signs Vital Signs Temp Pulse Resp BP Pulse Ox 11/10/17 11:28 97.0 F 68 18 117/68 98 11/10/17 11:06 98.6 F 11/10/17 11:04 70 117/68 94 11/10/17 10:47 98.0 F 74 16 121/61 96 - Laboratory Lab Statement: Any lab studies that have been ordered have been reviewed, and results considered in the medical decision making process. - Radiology left knee x-ray Xray Interpretation: Positive (See Comments) Radiology Interpretation Completed By: Radiologist - Small joint effusion, no fracture seen; this report was reviewed by ed physician Re-Evaluation - Re-Evaluation First Eval Re-Evaluation Time: 11:27 Comment: Discussed results of x-ray with patient and plan to discharge; patient will be given a knee immobilizer. She is agreeable with this plan. Lower Extremity Course/Dx - Course Course Of Treatment: Patient with small clinical joint effusion confirmed by x- ray. No fracture seen. Knee immobilizer and crutches given. Treated for discomfort. Likely ligamentous strain of varying degree. Complete exam is impossible due to patient pain. - Diagnoses Differential Diagnosis/HQI/PQRI: Positive: Contusion, Fracture (Closed), Sprain , Strain Provider Diagnoses: Left knee sprain Discharge - Sign-Out/Discharge Documenting (check all that apply): Patient Departure - discharge - Discharge Plan Condition: Improved Disposition: HOME Prescriptions: Naproxen [Naproxen 500 mg tab] 500 mg PO BID PRN #10 tablet.dr MASON Reason: Pain Patient Education Materials: Knee Sprain (ED) Referrals: Robbie Napier MD [Medical Doctor] - Glendy Borrero MD [Primary Care Provider] - Additional Instructions: Ice, [place] wrap for discomfort. Move the knee through a range of motion while at rest. Knee immobilizer when moving around along with crutches. Anti- inflammatory medication throughout the day. Follow-up with orthopedist on Sunday. - Billing Disposition and Condition Condition: IMPROVED Disposition: Home - Attestation Statements Document Initiated by Scribe: Yes Documenting Scribe: Orlando Serrano Provider For Whom Scribe is Documenting (Include Credential): Arturo Barragan MD Scribe Attestation: Orlando Zamudio scrmerricked for Arturo Barragan MD on 11/10/17 at 1304. Scribe Documentation Reviewed: Yes Provider Attestation: The documentation as recorded by the Orlando abarca accurately reflects the service I personally performed and the decisions made by , Arturo Barragan MD
== END | disposition home or self-care (01) ==
LOC: ED 10:42
DX: S83.92XA Sprain of unspecified site of left knee, initial encounter (principal); I10 Essential (primary) hypertension; J45.909 Unspecified asthma, uncomplicated; Z87.891 Personal history of nicotine dependence; M25.462 Effusion, left knee; X58.XXXA Exposure to other specified factors, initial encounter; Y92.9 Unspecified place or not applicable
CPT/HCPCS: 99282; A9270-GY

== ENCOUNTER 2018-12-20 07:29 | Day surgery (SDC) | payer MEDICARE ==
--- NOTE | 2018-12-13 11:58 | HP ---
PREOPERATIVE HISTORY AND PHYSICAL: DATE OF ADMISSION/SURGERY: 12/20/18 DATE OF OFFICE VISIT/ENCOUNTER: 12/11/18 ATTENDING SURGEON: Paz Harris MD * (DICTATED BY FARNCISCO ROMAN) PROCEDURE: Excision mass, right long finger. HISTORY OF PRESENT ILLNESS: This is a 63-year-old female who complains of pain in her right middle finger and a lump at the DIP joint. It has been present for several weeks. She does not recall any injury, but it is painful if she hits it on something. She denies any injury or any associated numbness or tingling. She would like to have the lump removed. PAST MEDICAL HISTORY: 1. Seasonal allergies. 2. Depression/anxiety. 3. Sleep apnea with a CPAP. 4. Hypercholesterolemia. PAST SURGICAL HISTORY: 1. Appendectomy. 2. Right carpal tunnel release. 3. Right oophorectomy. 4. Left ankle surgery. 5. Parathyroidectomy. MEDICATIONS: 1. Alprazolam 0.25 mg one-half tablet p.r.n. 2. Amphetamine/dextroamphetamine 20 mg 3 times a day. 3. Aripiprazole 5 mg daily. 4. Aspirin 81 mg daily. 5. Atorvastatin calcium 10 mg half tab daily. 6. Bupropion HCl ER XL 300 mg daily. 7. Desloratadine 5 mg daily. 8. Fluoxetine HCl 20 mg daily. 9. Ondansetron HCl 4 mg 3 times a day p.r.n. nausea. 10. Valtrex 500 mg 1 tab twice a day for 3 days as needed. 11. Ventolin inhaler 2 puffs 4 times a day as needed. ALLERGIES: No known drug allergies. The patient has seasonal allergies and some food allergies including banana, corn, and dairy. FAMILY MEDICAL HISTORY: Noncontributory. 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 She is a former smoker. She quit 25 years ago. Prior to that, she smoked for 25 years a pack and a half per day. She denies recreational drug use. She drinks alcohol on rare occasion. REVIEW OF SYSTEMS: Negative for general, cephalic, cardiovascular, respiratory , GI, , other musculoskeletal, integumentary, endocrine, neurologic, and hematologic symptoms. Infectious Disease: Negative for MRSA, hepatitis C, HIV. PHYSICAL EXAMINATION GENERAL: A well-developed, well-nourished 63-year-old female, in no acute distress. VITAL SIGNS: Height 5 feet tall, weight 180 pounds. Pulse rate 70, blood pressure 110/62. HEENT: Normocephalic, atraumatic. Pupils are equal, round, and reactive to light and accommodation. Extraocular movements are intact. Throat is clear. NECK: Supple. No palpable lymph nodes. PULMONARY: Lungs are clear to auscultation bilaterally. No wheezes, rales, or rhonchi. CARDIOVASCULAR: Regular rate and rhythm. S1, S2. No murmurs, rubs, or gallops. No edema. ABDOMEN: Positive bowel sounds. Soft, nontender. NEUROLOGICAL: Alert and oriented x3. Cranial nerves II through XII are intact. Sensation is intact to light touch. MUSCULOSKELETAL: On exam of the right hand, there is a cystic mass at the DIP joint of the middle finger. It is tender to palpation. She has limited flexion of the finger, but full extension. She can make a good fist. Normal flexion at the PIP joint. Skin is intact. Neurovascular function is intact. IMAGING STUDIES: X-rays, AP, lateral, and oblique, of the right middle finger show some mild degenerative changes. IMPRESSION: Right middle finger mucous cyst. PLAN: The patient is scheduled to undergo an excision mass, right long finger, with Dr. Harris on 12/20/18. She will return to the office 10 days postop for followup and suture removal. A prescription for Tylenol No. 3 was e-scribed to the patient's pharmacy for postoperative pain management. FRANCISCO ROMAN [id number]/[facility] #: [id number] MTDA[facility]
[~2018-12-20 07:29] MED LIST changes: -Acetaminophen TAB* 325 MG PO ONE; +Buffered Lidocaine 1% SYRIN* 1 ML/SYRINGE INTRADERM ONE; -Ibuprofen TAB* 600 MG PO ONE; +Lactated Ringers 1000 ML Bag* 1,000 ML IV SCH
[2018-12-20] MEDS ORDERED: Lidocaine 1% INJ* 10 MG/ML 30 ML SDV ONE (08:14)
[2018-12-20] MEDS ORDERED: Propofol* 10 MG/ML 20 ML BTL ONE (08:49)
[2018-12-20] MEDS ORDERED: Lidocaine 2% PF * 5 ML VIAL ONE (08:49)
[2018-12-20] MEDS ORDERED: Naloxone* 0.4 MG/ML 1 ML VIAL IV PRN (08:56)
[2018-12-20 10:04] VITALS: BP 118/81
--- NOTE | 2018-12-20 12:58 | OP ---
DATE OF OPERATION: 12/20/18 [facility] DATE OF : 51 SURGEON: Paz Harris MD. OUTBOUND SALES REPRESENTATIVE: FRANCISCO Hansen. ANESTHESIA: Local MAC. PRE-OP DIAGNOSIS: Right long finger mass. POST-OP DIAGNOSIS: Right long finger mass. OPERATIVE PROCEDURE: Removal of right long finger mass. ESTIMATED BLOOD LOSS: Zero. TOURNIQUET TIME: About 10 minutes. INDICATIONS FOR PROCEDURE: Meghan is a 63-year-old woman, who has a painful mass on the dorsal aspect of her right middle finger DIP joint who presents for removal. Clinically, it is a mucous cyst. DESCRIPTION OF PROCEDURE: The patient was brought to the operating room, was given a sedation anesthetic and an digital block with 10 cc of 1% plain lidocaine. The skin of her right hand and forearm was prepped and draped in the usual sterile fashion. The right long finger was exsanguinated with a Tourni-Cot, which was left in place during the procedure. An H-shaped incision was made centered over the dorsal aspect of the DIP joint. Skin flap was carefully elevated off of the mass, which was then elevated off of the nail bed and extensor tendon and traced with its stalk down to the DIP joint. Either side of the extensor tendon was incised longitudinally exposing the DIP joint and the underlying osteophytes were removed with a rongeur. The wound was irrigated with saline and the skin edges were reapproximated with 4-0 nylon suture. The wound was dressed with Xeroform, 4x4, Webril, and Coban. The patient tolerated the procedure well and was brought to the recovery room in good condition. [id number]/[facility] #: [id number] [facility]
== END 2018-12-20 09:55 | disposition home or self-care (01) ==
LOC: OREAST 07:29
PROVIDERS: ATTEND Orthopaedic Surgery
DX: M67.441 Ganglion, right hand (principal); E78.00 Pure hypercholesterolemia, unspecified; G47.33 Obstructive sleep apnea (adult) (pediatric); F41.8 Other specified anxiety disorders; J30.2 Other seasonal allergic rhinitis; Z87.891 Personal history of nicotine dependence
CPT/HCPCS: 88304; J2704